=== PATIENT | male | born 1965 | race American Indian/Alaskan Native ===

== ENCOUNTER 2017-11-30 11:07 | Inpatient (IN) | payer MEDICAID, OTHER ==
[2017-11-30] MEDS ORDERED: Clindamycin 600mg/50ml D5W 600 MG/50 ML VIAL IVPB STA (11:49)
[2017-11-30] MEDS ORDERED: Ciprofloxacin 400mg/200ml D5W 400 MG/200 ML BAG IV STA (11:49)
[2017-11-30] MEDS ORDERED: Oxycodone/Acetaminophen 5/325 mg Tab PO STA (11:52)
--- NOTE | 2017-11-30 11:52 | C.PDOC ---
History Of Present Illness Patient presents to ED c/o worsening pain, redness, swelling of right hand after being but by a neighbor's cat two weeks ago (on his right thumb). He has not sought medical attention yet, no PO antibiotics taken. Patient is unsure of tetanus vaccinations status. He reports a PMHX of DM II, but does not take medication for it. Time Seen by Provider: 11/30/17 11:28 Chief Complaint (Nursing): Upper Extremity Problem/Injury History Per: Patient History/Exam Limitations: no limitations Onset/Duration Of Symptoms: Waxing/Waning (2 weeks) Current Symptoms Are (Timing): Still Present Quality: "Pain" Severity: Severe Past Medical History Reviewed: Historical Data, Nursing Documentation, Vital Signs Vital Signs: Last Vital Signs Temp 98.0 F 12/04/17 23:45 Pulse 75 12/05/17 15:56 Resp 20 12/04/17 23:45 BP 130/78 12/05/17 09:36 Pulse Ox 97 12/04/17 23:45 - Medical History PMH: Diabetes - [facility] Procedures DRAINAGE OF RIGHT HAND MUSCLE, OPEN APPROACH, DIAGNOSTIC (11/30/17) INSERTION OF INFUSION DEV INTO SUP VENA CAVA, PERC APPROACH (11/30/17) Family History: States: No Known Family Hx - Social History Hx Alcohol Use: No Hx Substance Use: No - Immunization History Hx Tetanus Toxoid Vaccination: No Hx Influenza Vaccination: No Hx Pneumococcal Vaccination: No Review Of Systems Except As Marked, All Systems Reviewed And Found Negative. Cardiovascular: Negative for: Chest Pain Respiratory: Negative for: Shortness of Breath Neurological: Positive for: Other (right hand swelling, redness, pain ) Physical Exam - Physical Exam Appears: Well, Non-toxic, In Acute Distress (in moderate pain ) Skin: Other (see extremity exam ) Eye(s): bilateral: Normal Inspection Oral Mucosa: Moist Cardiovascular: Rhythm Regular (tachycardic ) Respiratory: Normal Breath Sounds, No Rales, No Rhonchi, No Wheezing Extremity: No Normal ROM, Capillary Refill (< 2 sec all digits ), Other (right hand diffusely tender to palpation, moderate to severe swelling, diffusely erythematous, (+) large amount of purulence under skin of palm ) ED Course And Treatment - Laboratory Results Result Diagrams: 12/05/17 06:25 12/05/17 06:25 O2 Sat by Pulse Oximetry: 100 (RA) Pulse Ox Interpretation: Normal - Other Rad right hand Xray X-Ray: Interpreted by Me, Viewed By Me (no fx/dislocation, no foreign bodies, (+ ) soft tissue swelling ) Progress Note: Blood work, xray of hand ordered and reviewed. Patient given IV Clindamycin + IV Ciprofloxacin to cover for pasteurella, Strep, staph (No Unasyn available at this hospital). 1:15PM- Dr. Carrizales being covered by Dr. Garcia, who will see patient on consult. Surgery resident paged to come evaluate patient. [facility] spoken with and agrees with medical admission. - Physician Consult Information Physician Contacted: Barron Bailon Critical Care Time - Critical Care Note Total Time (in mins): 35 Documented critical care: time excludes all time spent performing seperately billable procedures. Disposition - Disposition Disposition: HOSPITALIZED Disposition Time: 12:51 Condition: STABLE - Clinical Impression Clinical Impression: Abscess of right hand, Cellulitis of right hand, Cat bite of hand
[2017-11-30] MEDS ORDERED: Tetanus/Diphtheria Toxoids 0.5 ml Syringe IM ONE (11:56)
[2017-11-30 12:07] LABS: BASO # 0.1 K/uL (0.0-0.2); EOS # 0.1 K/uL (0.0-0.7); EOS % 0.6 % (0.0-4.0); HEMOGLOBIN 12.9 g/dL (12.0-18.0); LYMPH # 1.8 K/uL (1.0-4.3); MEAN CELL VOLUME 80.8 fL (80.0-94.0); MEAN CORPUSCULAR HEMOGLOBIN 28.3 pg (27.0-31.0); MEAN CORPUSCULAR HGB CONC 35.1 g/dL (33.0-37.0); MEAN PLATELET VOLUME 9.3 fL (7.2-11.7); MONO # 1.3 K/uL (0.0-0.8); MONO % 9.2 % (0.0-10.0); NEUT # 10.7 K/uL (1.8-7.0); NEUT % 76.2 % (50.0-75.0); RBC 4.56 Mil/uL (4.40-5.90); RED CELL DISTRIBUTION WIDTH 13.2 % (11.5-14.5); WHITE BLOOD COUNT 14.1 K/uL (4.8-10.8)
[2017-11-30 12:08] LABS: VENOUS BLOOD GAS BASE EXCESS 4.5 mmol/L (0.0-2.0); VENOUS BLOOD GAS PCO2 31 mmHg (40-60); VENOUS BLOOD GAS PO2 50 mm/Hg (30-55); VENOUS BLOOD PH 7.54 (7.32-7.43)
[2017-11-30] MEDS ORDERED: Ciprofloxacin 400mg/200ml D5W 400 MG/200 ML BAG IVPB ONE (12:12)
[2017-11-30] MEDS ORDERED: Oxycodone/Acetaminophen 5/325 mg Tab ONE (12:12)
[2017-11-30] MEDS ORDERED: Clindamycin 600mg/50ml NS 600 MG/50 ML BAG IVPB ONE ×2 (12:13→13:00)
[2017-11-30] MEDS ORDERED: Tdap Vaccine 0.5 ml Vial (10-64 yrs) IM ONE (12:13)
[2017-11-30 12:20] LABS: ALB/GLOB RATIO 0.7 (1.0-2.1); ALBUMIN 3.6 g/dL (3.5-5.0); AST/SGOT 16 U/L (17-59); BLOOD UREA NITROGEN 9 mg/dL (9-20); CALCIUM 9.2 mg/dl (8.6-10.4); GFR AFRICAN-AMERICAN > 60; GFR NON-AFRICAN AMERICAN > 60
[2017-11-30 12:23] LABS: ALT/SGPT < 6 U/L (21-72)
[2017-11-30 12:36] LABS: INR 1.3
[2017-11-30 12:37] LABS: PROTHROMBIN TIME 14.7 SECONDS (9.7-12.2)
[2017-11-30] MEDS ORDERED: Pantoprazole 40 mg EC Tab PO SCH (13:30)
[2017-11-30] MEDS ORDERED: Dextrose 50% SYRINGE Inj (50 ml) IV PRN (13:37)
[2017-11-30] MEDS ORDERED: Glucagon Recombinant 1 mg Inj IM PRN (13:37)
--- NOTE | 2017-11-30 14:27 | RAD ---
PROCEDURE: CHEST RADIOGRAPH, 1 VIEW HISTORY: ADMISSION COMPARISON: None available. FINDINGS: LUNGS: Clear. PLEURA: No pneumothorax or pleural fluid seen. CARDIOVASCULAR: Normal. OSSEOUS STRUCTURES: No significant abnormalities. VISUALIZED UPPER ABDOMEN: Normal. OTHER FINDINGS: None. IMPRESSION: No active disease.
--- NOTE | 2017-11-30 14:36 | RAD ---
PROCEDURE: Right hand dated 11/30/2017. HISTORY: Right hand infection. COMPARISON: Correlation made with concurrent MRI of the right hand FINDINGS: BONES: No evidence of acute displaced fracture nor dislocation. No definitive cortical destructive changes. . JOINTS: Normal. No osteoarthritic changes. SOFT TISSUES: That appears to be mild diffuse soft tissue swelling most conspicuous the region of the dorsum. Clinic correlation recommended OTHER FINDINGS: None. IMPRESSION: No evidence of acute displaced fracture nor dislocation. No obvious cortical destructive changes. Diffuse circumferential soft tissue swelling most at conspicuous involving the dorsal soft tissues
--- NOTE | 2017-11-30 15:54 | MRI ---
EXAM: MR Right Upper Extremity Without and With Intravenous Contrast, Hand EXAM DATE/TIME: Exam ordered 11/30/2017 1:16 PM CLINICAL HISTORY: 52 years old, male; Pain and signs and symptoms; Swelling; Hand; Right; Finger(s); Additional info: Possible osteomyelitis. S/P cat bite to thumb 2 wk TECHNIQUE: Multiplanar magnetic resonance images of the right hand without and with intravenous contrast. CONTRAST: 15 mL of omniscan administered intravenously. COMPARISON: No relevant prior studies available. FINDINGS: TENDONS: Flexor: Unremarkable. Extensor: Unremarkable. Muscles: Edema is noted within the thenar muscle and the flexor pollicis longus Cartilage: Unremarkable. Bones/joints: On the STIR sequences there is evidence of marrow edema within the proximal phalanx of the first digit. Soft tissues: There is extensive cellulitis/edema of the right hand predominantly involving the soft tissues and muscles surrounding the first, second and third digits. On the contrast portion examination, there is enhancement noted of the subcutaneous fat surrounding the first , second and third digits primarily. Faint enhancement is noted of the thenar muscle as well. There is enhancement noted of the marrow of the proximal phalanx and distal phalanx of the first digit IMPRESSION: 1. Extensive cellulitis and myositis of the right hand. Marked soft tissue swelling raises the possibility of early compartment syndrome. 2. Enhancement of the proximal and distal phalanges of the first digit could reflect early osteomyelitis
--- NOTE | 2017-11-30 16:21 | CP.PCM.CON ---
History of Present Illness - History of Present Illness History of Present Illness: Hand surgery consult for Dr. Garcia Consulted for: right hand cellulitis and abscess Patient is a 52M who was bit by a cat on his right 2 weeks ago. Patient states that it appeared to be healing but then the swelling and pain worsened and he began to have purulent drainage from the thumb 4 days ago. Patient did not attempt to treat it at home and came in today. Patient denies any fevers or chills but reports paresthesias of this thumb, fingers 2-3, and the dorsum of the hand. Patient was given a tetanus shot in the ER and states that the cat has not displayed any signs of rabies PMH: DM2 PSH: none All: NKDA Review of Systems - Review of Systems All systems: reviewed and no additional remarkable complaints except (as per HPI ) - Constitutional Constitutional: absent: Chills, Fever - Respiratory Respiratory: absent: Dyspnea - Gastrointestinal Gastrointestinal: absent: Abdominal Pain - Neurological Additional comments: paresthesias of the thumb, index, and middle finger and dorsum of hand Past Patient History - Infectious Disease Hx of Infectious Diseases: None - Past Medical History & Family History Past Medical History?: Yes - Past Social History Smoking Status: Never Smoked - ENDOCRINE/METABOLIC Hx Diabetes Mellitus Type 2: No - MUSCULOSKELETAL/RHEUMATOLOGICAL Hx Falls: No - PSYCHIATRIC Hx Substance Use: No - SURGICAL HISTORY Hx Surgeries: No - ANESTHESIA Hx Anesthesia: No Meds Allergies/Adverse Reactions: Allergies Allergy/AdvReac Type Severity Reaction Status Date / Time No Known Allergies Allergy Verified 11/30/17 11:14 - Medications Medications: Current Medications Dextrose (Dextrose 50% Inj) 0 ml IV STAT PRN; Protocol PRN Reason: Hypoglycemia Protocol Dextrose (Glutose 15) 15 gm PO ONCE PRN; Protocol PRN Reason: Hypoglycemia Protocol Glucagon (Glucagen Diagnostic Kit) 1 mg IM STAT PRN; Protocol PRN Reason: Hypoglycemia Protocol Clindamycin Phosphate (Cleocin In Normal Saline) 600 mg in 50 mls @ 100 mls/hr IVPB Q8H [facility] PRN Reason: Protocol Ciprofloxacin (Cipro 400mg/200ml Dsw) 400 mg in 200 mls @ 133 mls/hr IVPB Q12H [facility] PRN Reason: Protocol Dextrose (Dextrose 5% In Water 1000 Ml) 1,000 mls @ 0 mls/hr IV .Q0M PRN; Protocol; Per Protocol PRN Reason: Hypoglycemia Protocol Insulin Human Regular (Novolin R) 0 unit SC ACHS [facility] PRN Reason: Protocol Ketorolac Tromethamine (Toradol) 30 mg IVP Q6H PRN PRN Reason: Pain, severe (8-10) Ketorolac Tromethamine (Toradol) 15 mg IVP Q6H PRN PRN Reason: Pain, moderate (4-7) Pantoprazole Sodium (Protonix Ec Tab) 40 mg PO DAILY [facility] Last Admin: 11/30/17 15:19 Dose: 40 mg Saccharomyces Boulardii (Florastor) 250 mg PO BID [facility] Physical Exam - Constitutional Appears: Well, Non-toxic, No Acute Distress - Head Exam Head Exam: NORMOCEPHALIC - Eye Exam Eye Exam: Normal appearance. absent: Conjunctival injection, Scleral icterus - ENT Exam ENT Exam: Mucous Membranes Moist, Normal Oropharynx - Respiratory Exam Respiratory Exam: NORMAL BREATHING PATTERN. absent: Accessory Muscle Use, Respiratory Distress - Cardiovascular Exam Cardiovascular Exam: RRR - GI/Abdominal Exam GI & Abdominal Exam: absent: Distended - Extremities Exam Additional comments: right hand with diffuse, severe swelling, area of fluctuance from the thumb to throughout the palm with thick induration over the thumb, thenar eminence, and dorsal hand. Able to resist agains flexion and extension of the fingers and thumb but ROM limited by swelling, no expressible fluid. Hand warm, erythematous - Neurological Exam Neurological exam: Alert, Oriented x3 - Psychiatric Exam Psychiatric exam: Normal Affect, Normal Mood - Skin Skin Exam: Dry, Intact, Normal Color, Warm Results - Vital Signs Recent Vital Signs: Last Vital Signs Temp 99 F 11/30/17 13:33 Pulse 95 H 11/30/17 15:34 Resp 18 11/30/17 13:33 BP 139/79 11/30/17 13:33 Pulse Ox 97 11/30/17 13:33 - Labs Result Diagrams: 11/30/17 12:02 11/30/17 12:02 Labs: Laboratory Results - last 24 hr 11/30/17 11/30/17 11/30/17 12:02 12:02 12:02 WBC 14.1 H RBC 4.56 Hgb 12.9 Hct 36.8 MCV 80.8 MCH 28.3 MCHC 35.1 RDW 13.2 Plt Count 412 H MPV 9.3 Neut % (Auto) 76.2 H Lymph % (Auto) 13.0 L Mcpherson % (Auto) 9.2 Eos % (Auto) 0.6 Baso % (Auto) 1.0 Neut # (Auto) 10.7 H Lymph # (Auto) 1.8 Mcpherson # (Auto) 1.3 H Eos # (Auto) 0.1 Baso # (Auto) 0.1 ESR 112 H PT 14.7 H INR 1.3 APTT 38 H pO2 VBG pH VBG pCO2 VBG HCO3 VBG Total CO2 VBG O2 Sat (Calc) VBG Base Excess VBG Potassium Glucose Lactate Sodium 134 Potassium 3.8 Chloride 96 L Carbon Dioxide 25 Anion Gap 17 BUN 9 Creatinine 0.8 Est GFR ( Amer) > 60 Est GFR (Non-Af Amer) > 60 Random Glucose 211 H Calcium 9.2 Total Bilirubin 1.0 AST 16 L ALT < 6 L Alkaline Phosphatase 89 Total Protein 8.6 H Albumin 3.6 Globulin 5.0 H Albumin/Globulin Ratio 0.7 L Venous Blood Potassium Blood Type Antibody Screen 11/30/17 11/30/17 12:04 12:26 WBC RBC Hgb Hct MCV MCH MCHC RDW Plt Count MPV Neut % (Auto) Lymph % (Auto) Mcpherson % (Auto) Eos % (Auto) Baso % (Auto) Neut # (Auto) Lymph # (Auto) Mcpherson # (Auto) Eos # (Auto) Baso # (Auto) ESR PT INR APTT pO2 50 VBG pH 7.54 H VBG pCO2 31 L VBG HCO3 28.2 VBG Total CO2 27.5 VBG O2 Sat (Calc) 90.6 H VBG Base Excess 4.5 H VBG Potassium 3.6 Glucose 213 H Lactate 1.3 Sodium 133.0 Potassium Chloride 100.0 Carbon Dioxide Anion Gap BUN Creatinine Est GFR ( Amer) Est GFR (Non-Af Amer) Random Glucose Calcium Total Bilirubin AST ALT Alkaline Phosphatase Total Protein Albumin Globulin Albumin/Globulin Ratio Venous Blood Potassium 3.6 Blood Type O POSITIVE Antibody Screen Negative Assessment & Plan - Assessment and Plan (Free Text) Assessment: 52M with abscess and cellulitis of the right hand MRI: Extensive cellulitis and myositis of the right hand. Marked soft tissue swelling raises the possibility of early compartment syndrome. Enhancement of the proximal and distal phalanges of the first digit could reflect early osteomyelitis Plan: Take to OR for incision and drainage and debridement of right hand tonight Antibiotics per ID PRN pain medication Continue management per primary Regular neurovascular exam Discussed with Dr. Jose Meeks, PGY2
--- NOTE | 2017-11-30 16:44 | CP.PCM.CON ---
History of Present Illness - History of Present Illness History of Present Illness: Patient presents to ED c/o worsening pain, redness, swelling of right hand after being but by a neighbor's cat two weeks ago (on his right thumb). He has not sought medical attention yet, no PO antibiotics take. Patient is unsure of tetanus vaccinations status. He reports a PMHX of DM II, but does not take medication for it. Referred for ID eval for this severe SSTI to right hand which started 2 weeks ago but recently became worse C/O severe pain and decreased rom right hand as well as chills - Medical History PMH: Diabetes Review of Systems - Review of Systems All systems: reviewed and no additional remarkable complaints except - Constitutional Constitutional: As Per HPI, Fever - EENT Eyes: absent: As Per HPI, Blind Spots, Blurred Vision, Change in Vision, Decreased Night Vision, Diplopia, Discharge, Dry Eye, Exophthalmos, Floaters, Irritation, Itchy Eyes, Loss of Peripheral Vision, Pain, Photophobia, Requires Corrective Lenses, Sees Flashes, Spots in Vision, Tunnel Vision, Other Visual Disturbances, Loss of Vision, Other Ears: absent: As Per HPI, Decreased Hearing, Ear Discharge, Ear Pain, Tinnitus, Abnormal Hearing, Disequilibrium, Dizziness, Other Nose/Mouth/Throat: absent: As Per HPI, Epistaxis, Nasal Congestion, Nasal Discharge, Nasal Obstruction, Nasal Trauma, Nose Pain, Post Nasal Drip, Sinus Pain, Sinus Pressure, Bleeding Gums, Change in Voice, Dental Pain, Dry Mouth, Dysphagia, Halitosis, Hoarsness, Lip Swelling, Mouth Lesions, Mouth Pain, Odynophagia, Sore Throat, Throat Swelling, Tongue Swelling, Facial Pain, Neck Pain, Neck Mass, Other - Cardiovascular Cardiovascular: absent: As Per HPI, Acrocyanosis, Chest Pain, Chest Pain at Rest , Chest Pain with Activity, Claudication, Diaphoresis, Dyspnea, Dyspnea on Exertion, Edema, Irregular Heart Rhythm, Pain Radiating to Arm/Neck/Jaw, Leg Edema, Leg Ulcers, Lightheadedness, Orthopnea, Palpitations, Paroxysmal Nocturnal Dyspnea, Pedal Edema, Radiating Pain, Rapid Heart Rate, Slow Heart Rate, Syncope, Other - Respiratory Respiratory: absent: As Per HPI, Cough, Dyspnea, Hemoptysis, Dyspnea on Exertion , Wheezing, Snoring, Stridor, Pain on Inspiration, Chest Congestion, Excessive Mucous Production, Change in Mucous Color, Pain with Coughing, Other - Gastrointestinal Gastrointestinal: absent: As Per HPI, Abdominal Pain, Belching, Bloating, Change in Bowel Habits, Change in Stool Character, Coffee Ground Emesis, Constipation, Cramping, Diarrhea, Dyspepsia, Dysphagia, Early Satiety, Excessive Flatus, Fecal Incontinence, Heartburn, Hematemesis, Hematochezia, Loose Stools, Melena, Nausea, Odynophagia, Temesmus, Vomiting, Other - Genitourinary Genitourinary: absent: As Per HPI, Change in Urinary Stream, Difficulty Urinating, Dysuria, Flank Pain, Hematuria, Pyuria, Nocturia, Urinary Incontinence, Urinary Frequency, Urinary Hesitance, Urinary Urgency, Voiding Freq/Small Amts, Freq UTI, Hx Renal/Bladder Calculi, Hx /Renal Surgery, Bladder Distension, Other - Musculoskeletal Musculoskeletal: As Per HPI - Integumentary Integumentary: Skin Pain, Swelling, Wounds - Neurological Neurological: Tremor - Psychiatric Psychiatric: absent: As Per HPI, Abnormal Sleep Pattern, Anhedonia, Anxiety, Auditory Hallucinations, Behavioral Changes, Change in Appetite, Change in Libido, Confusion, Depression, Difficulty Concentrating, Hallucinations, Homicidal Ideation, Hopelessness, Irritability, Memory Loss, Mood Swings, Panic Attacks, Paranoia, Suicidal Ideation, Visual Hallucinations, Tactile Hallucinations, Other - Endocrine Endocrine: absent: As Per HPI, Change in Body Appearance, Change in Libido, Cold Intolorance, Deepening of Voice, Excessive Sweating, Fatigue, Flushing, Heat Intolorance, Increase in Ring/Shoe/Hat Size, Palpitations, Polydipsia, Polyphagia, Polyuria, Other Past Patient History - Infectious Disease Hx of Infectious Diseases: None - Past Medical History & Family History Past Medical History?: Yes - Past Social History Smoking Status: Never Smoked - ENDOCRINE/METABOLIC Hx Diabetes Mellitus Type 2: No - MUSCULOSKELETAL/RHEUMATOLOGICAL Hx Falls: No - PSYCHIATRIC Hx Substance Use: No - SURGICAL HISTORY Hx Surgeries: No - ANESTHESIA Hx Anesthesia: No Meds Allergies/Adverse Reactions: Allergies Allergy/AdvReac Type Severity Reaction Status Date / Time No Known Allergies Allergy Verified 11/30/17 11:14 - Medications Medications: Current Medications Dextrose (Dextrose 50% Inj) 0 ml IV STAT PRN; Protocol PRN Reason: Hypoglycemia Protocol Dextrose (Glutose 15) 15 gm PO ONCE PRN; Protocol PRN Reason: Hypoglycemia Protocol Glucagon (Glucagen Diagnostic Kit) 1 mg IM STAT PRN; Protocol PRN Reason: Hypoglycemia Protocol Clindamycin Phosphate (Cleocin In Normal Saline) 600 mg in 50 mls @ 100 mls/hr IVPB Q8H [facility] PRN Reason: Protocol Ciprofloxacin (Cipro 400mg/200ml Dsw) 400 mg in 200 mls @ 133 mls/hr IVPB Q12H [facility] PRN Reason: Protocol Dextrose (Dextrose 5% In Water 1000 Ml) 1,000 mls @ 0 mls/hr IV .Q0M PRN; Protocol; Per Protocol PRN Reason: Hypoglycemia Protocol Insulin Human Regular (Novolin R) 0 unit SC ACHS [facility] PRN Reason: Protocol Ketorolac Tromethamine (Toradol) 30 mg IVP Q6H PRN PRN Reason: Pain, severe (8-10) Ketorolac Tromethamine (Toradol) 15 mg IVP Q6H PRN PRN Reason: Pain, moderate (4-7) Pantoprazole Sodium (Protonix Ec Tab) 40 mg PO DAILY [facility] Last Admin: 11/30/17 15:19 Dose: 40 mg Saccharomyces Boulardii (Florastor) 250 mg PO BID [facility] Physical Exam - Constitutional Appears: Toxic, No Acute Distress - Head Exam Head Exam: ATRAUMATIC, NORMAL INSPECTION, NORMOCEPHALIC - Eye Exam Eye Exam: EOMI, PERRL. absent: Scleral icterus - ENT Exam ENT Exam: Mucous Membranes Dry, Normal External Ear Exam, Normal Oropharynx - Neck Exam Neck exam: Negative for: Lymphadenopathy, Thyromegaly - Respiratory Exam Respiratory Exam: Decreased Breath Sounds, Clear to Auscultation Bilateral - Cardiovascular Exam Cardiovascular Exam: Tachycardia, REGULAR RHYTHM, +S1, +S2 - GI/Abdominal Exam GI & Abdominal Exam: Diminished Bowel Sounds, Distended, Soft. absent: Pulsatile Mass, Rebound, Rigid, Tenderness - Rectal Exam Rectal Exam: Deferred - Exam Exam: NORMAL INSPECTION - Extremities Exam Extremities exam: Positive for: pedal pulses present. Negative for: calf tenderness, pedal edema, tenderness - Back Exam Back exam: absent: CVA tenderness (L), CVA tenderness (R), paraspinal tenderness - Neurological Exam Neurological exam: Alert, CN II-XII Intact, Oriented x3, Reflexes Normal - Psychiatric Exam Psychiatric exam: Depressed - Skin Skin Exam: Dry Results - Vital Signs Recent Vital Signs: Last Vital Signs Temp 99 F 11/30/17 13:33 Pulse 95 H 11/30/17 15:34 Resp 18 11/30/17 13:33 BP 139/79 11/30/17 13:33 Pulse Ox 97 11/30/17 13:33 - Labs Result Diagrams: 11/30/17 12:02 11/30/17 12:02 Labs: Laboratory Results - last 24 hr 11/30/17 11/30/17 11/30/17 12:02 12:02 12:02 WBC 14.1 H RBC 4.56 Hgb 12.9 Hct 36.8 MCV 80.8 MCH 28.3 MCHC 35.1 RDW 13.2 Plt Count 412 H MPV 9.3 Neut % (Auto) 76.2 H Lymph % (Auto) 13.0 L [place] % (Auto) 9.2 Eos % (Auto) 0.6 Baso % (Auto) 1.0 Neut # (Auto) 10.7 H Lymph # (Auto) 1.8 [place] # (Auto) 1.3 H Eos # (Auto) 0.1 Baso # (Auto) 0.1 ESR 112 H PT 14.7 H INR 1.3 APTT 38 H pO2 VBG pH VBG pCO2 VBG HCO3 VBG Total CO2 VBG O2 Sat (Calc) VBG Base Excess VBG Potassium Glucose Lactate Sodium 134 Potassium 3.8 Chloride 96 L Carbon Dioxide 25 Anion Gap 17 BUN 9 Creatinine 0.8 Est GFR ( Amer) > 60 Est GFR (Non-Af Amer) > 60 POC Glucose (mg/dL) Random Glucose 211 H Calcium 9.2 Total Bilirubin 1.0 AST 16 L ALT < 6 L Alkaline Phosphatase 89 Total Protein 8.6 H Albumin 3.6 Globulin 5.0 H Albumin/Globulin Ratio 0.7 L Venous Blood Potassium Blood Type Antibody Screen 11/30/17 11/30/17 11/30/17 12:04 12:26 16:15 WBC RBC Hgb Hct MCV MCH MCHC RDW Plt Count MPV Neut % (Auto) Lymph % (Auto) [place] % (Auto) Eos % (Auto) Baso % (Auto) Neut # (Auto) Lymph # (Auto) [place] # (Auto) Eos # (Auto) Baso # (Auto) ESR PT INR APTT pO2 50 VBG pH 7.54 H VBG pCO2 31 L VBG HCO3 28.2 VBG Total CO2 27.5 VBG O2 Sat (Calc) 90.6 H VBG Base Excess 4.5 H VBG Potassium 3.6 Glucose 213 H Lactate 1.3 Sodium 133.0 Potassium Chloride 100.0 Carbon Dioxide Anion Gap BUN Creatinine Est GFR ( Amer) Est GFR (Non-Af Amer) POC Glucose (mg/dL) 174 H Random Glucose Calcium Total Bilirubin AST ALT Alkaline Phosphatase Total Protein Albumin Globulin Albumin/Globulin Ratio Venous Blood Potassium 3.6 Blood Type O POSITIVE Antibody Screen Negative Assessment & Plan (1) Cat bite involving extremity Status: Acute (2) Sepsis affecting skin Status: Acute (3) Cellulitis and abscess of hand Status: Acute (4) Necrotizing fasciitis due to microorganism Status: Acute (5) Osteomyelitis Status: Acute - Assessment and Plan (Free Text) Assessment: needs broad spectrum empiric coverage with IV antibiotics need to cover pasteurella multocida in cat bite would also cover MRSA until ruled out consider OR / Debridement JUNE
[2017-11-30] MEDS: (Novolin R) Insulin Human Regular 100 units/ml vial SC SCH ×2 (17:10→22:07)
[2017-11-30] MEDS: Saccharomyces Boulardi 250 mg Cap PO SCH (17:10)
[2017-11-30] MEDS: Piperacill/Tazo 3.375gm in Dex 3.375 GM/50 ML BAG IVPB SCH ×2 (17:32→23:02)
--- NOTE | 2017-11-30 18:08 | CP.PCM.HP ---
<Mario Ward - Last Filed: 11/30/17 17:58> History of Present Illness - History of Present Illness History of Present Illness: HPI: Jaquan is a 52M with a PMH of DM comes to ED after he was bit by a cat 2 weeks ago. He stated he did had pain at that time but no swelling. Slowly progressive over 2 weeks time the swelling got to the point where he started to have trouble using his hand. It came to the point when he was unable to move his fingers. During the course of the two weeks he noticed purulent drainage from the thumb. He was taking Advil at home but that was not relieving the pain. He denies any fever or chills. No nausea or vomiting. PMH: DM2, takes no medications PSH: none FH: Unremarkable SH: Denies smoking, dirnking, drugs All: NKDA Present on Admission - Present on Admission Any Indicators Present on Admission: Yes History of Uncontrolled Diabetes: Yes Review of Systems - Review of Systems Review of Systems: per HPI Past Patient History - Infectious Disease Hx of Infectious Diseases: None - Past Medical History & Family History Past Medical History?: Yes - Past Social History Smoking Status: Never Smoked - ENDOCRINE/METABOLIC Hx Diabetes Mellitus Type 2: No - MUSCULOSKELETAL/RHEUMATOLOGICAL Hx Falls: No - PSYCHIATRIC Hx Substance Use: No - SURGICAL HISTORY Hx Surgeries: No - ANESTHESIA Hx Anesthesia: No Meds Allergies/Adverse Reactions: Allergies Allergy/AdvReac Type Severity Reaction Status Date / Time No Known Allergies Allergy Verified 11/30/17 11:14 Physical Exam - Constitutional Appears: Well - Head Exam Head Exam: ATRAUMATIC, NORMAL INSPECTION, NORMOCEPHALIC - Eye Exam Eye Exam: EOMI, Normal appearance, PERRL Pupil Exam: NORMAL ACCOMODATION, PERRL - ENT Exam ENT Exam: Mucous Membranes Moist, Normal Exam - Neck Exam Neck exam: Positive for: Normal Inspection - Respiratory Exam Respiratory Exam: Clear to Auscultation Bilateral, NORMAL BREATHING PATTERN - Cardiovascular Exam Cardiovascular Exam: REGULAR RHYTHM - GI/Abdominal Exam GI & Abdominal Exam: Normal Bowel Sounds, Soft. absent: Tenderness - Rectal Exam Rectal Exam: NORMAL INSPECTION - Exam Exam: Circumcision, NORMAL INSPECTION External exam: NORMAL EXTERNAL EXAM Speculum exam: NORMAL SPECULUM EXAM Bimanual exam: NORMAL BIMANUAL EXAM - Extremities Exam Additional comments: R. hand circumferential swollen. Able to wiggle finger and has sensation but is unable to close hand. Hand is warm and pulses are 2+ - Back Exam Back exam: NORMAL INSPECTION - Neurological Exam Neurological exam: Alert, CN II-XII Intact, Normal Gait, Oriented x3, Reflexes Normal - Psychiatric Exam Psychiatric exam: Normal Affect, Normal Mood - Skin Skin Exam: Dry, Intact, Normal Color, Warm Results - Vital Signs Recent Vital Signs: Last Vital Signs Temp 99 F 11/30/17 13:33 Pulse 95 H 11/30/17 15:34 Resp 18 11/30/17 13:33 BP 139/79 11/30/17 13:33 Pulse Ox 97 11/30/17 13:33 - Labs Result Diagrams: 11/30/17 12:02 11/30/17 12:02 Labs: Laboratory Results - last 24 hr 11/30/17 11/30/17 11/30/17 12:02 12:02 12:02 WBC 14.1 H RBC 4.56 Hgb 12.9 Hct 36.8 MCV 80.8 MCH 28.3 MCHC 35.1 RDW 13.2 Plt Count 412 H MPV 9.3 Neut % (Auto) 76.2 H Lymph % (Auto) 13.0 L [place] % (Auto) 9.2 Eos % (Auto) 0.6 Baso % (Auto) 1.0 Neut # (Auto) 10.7 H Lymph # (Auto) 1.8 [place] # (Auto) 1.3 H Eos # (Auto) 0.1 Baso # (Auto) 0.1 ESR 112 H PT 14.7 H INR 1.3 APTT 38 H pO2 VBG pH VBG pCO2 VBG HCO3 VBG Total CO2 VBG O2 Sat (Calc) VBG Base Excess VBG Potassium Glucose Lactate Sodium 134 Potassium 3.8 Chloride 96 L Carbon Dioxide 25 Anion Gap 17 BUN 9 Creatinine 0.8 Est GFR ( Amer) > 60 Est GFR (Non-Af Amer) > 60 POC Glucose (mg/dL) Random Glucose 211 H Calcium 9.2 Total Bilirubin 1.0 AST 16 L ALT < 6 L Alkaline Phosphatase 89 Total Protein 8.6 H Albumin 3.6 Globulin 5.0 H Albumin/Globulin Ratio 0.7 L Venous Blood Potassium Blood Type Antibody Screen 11/30/17 11/30/17 11/30/17 12:04 12:26 16:15 WBC RBC Hgb Hct MCV MCH MCHC RDW Plt Count MPV Neut % (Auto) Lymph % (Auto) [place] % (Auto) Eos % (Auto) Baso % (Auto) Neut # (Auto) Lymph # (Auto) [place] # (Auto) Eos # (Auto) Baso # (Auto) ESR PT INR APTT pO2 50 VBG pH 7.54 H VBG pCO2 31 L VBG HCO3 28.2 VBG Total CO2 27.5 VBG O2 Sat (Calc) 90.6 H VBG Base Excess 4.5 H VBG Potassium 3.6 Glucose 213 H Lactate 1.3 Sodium 133.0 Potassium Chloride 100.0 Carbon Dioxide Anion Gap BUN Creatinine Est GFR ( Amer) Est GFR (Non-Af Amer) POC Glucose (mg/dL) 174 H Random Glucose Calcium Total Bilirubin AST ALT Alkaline Phosphatase Total Protein Albumin Globulin Albumin/Globulin Ratio Venous Blood Potassium 3.6 Blood Type O POSITIVE Antibody Screen Negative Assessment & Plan (1) Cat bite involving extremity Assessment and Plan: Possible compartment syndrome Hand Surgeon ([place]) plan to operate this evening ID ([place]) Cipro 400 IV Q12 Clinda 600 IV Q8 zosyn 3.375 IV Q6 Toradol 15/30 Q6 PRN for pain F/U blood cultures Hand Xray - no fracture or dislocation MRI: Extensive cellulitis/myositis of R. hand. Marked soft tissue swelling raises concern for early compartment syndrome. First digit osteo possible. Status: Acute Priority: High (2) Diabetes mellitus Assessment and Plan: A1C ISS High Status: Chronic Priority: High (3) Prophylactic measure Assessment and Plan: GI PPX not indicated scd Hold vte for surgery tonight Status: Acute Priority: Medium <Barron Bailon - Last Filed: 11/30/17 19:14> Results - Vital Signs Recent Vital Signs: Last Vital Signs Temp 98.5 F 11/30/17 15:45 Pulse 102 H 11/30/17 18:30 Resp 18 11/30/17 18:30 BP 129/78 11/30/17 18:30 Pulse Ox 97 11/30/17 18:30 - Labs Result Diagrams: 11/30/17 12:02 11/30/17 12:02 Labs: Laboratory Results - last 24 hr 04/20/18 04/20/18 04/20/18 12:02 12:02 12:02 WBC 14.1 H RBC 4.56 Hgb 12.9 Hct 36.8 MCV 80.8 MCH 28.3 MCHC 35.1 RDW 13.2 Plt Count 412 H MPV 9.3 Neut % (Auto) 76.2 H Lymph % (Auto) 13.0 L [place] % (Auto) 9.2 Eos % (Auto) 0.6 Baso % (Auto) 1.0 Neut # (Auto) 10.7 H Lymph # (Auto) 1.8 [place] # (Auto) 1.3 H Eos # (Auto) 0.1 Baso # (Auto) 0.1 ESR 112 H PT 14.7 H INR 1.3 APTT 38 H pO2 VBG pH VBG pCO2 VBG HCO3 VBG Total CO2 VBG O2 Sat (Calc) VBG Base Excess VBG Potassium Glucose Lactate Sodium 134 Potassium 3.8 Chloride 96 L Carbon Dioxide 25 Anion Gap 17 BUN 9 Creatinine 0.8 Est GFR ( Amer) > 60 Est GFR (Non-Af Amer) > 60 POC Glucose (mg/dL) Random Glucose 211 H Calcium 9.2 Total Bilirubin 1.0 AST 16 L ALT < 6 L Alkaline Phosphatase 89 Total Protein 8.6 H Albumin 3.6 Globulin 5.0 H Albumin/Globulin Ratio 0.7 L Venous Blood Potassium Blood Type Antibody Screen 11/30/17 11/30/17 11/30/17 12:04 12:26 16:15 WBC RBC Hgb Hct MCV MCH MCHC RDW Plt Count MPV Neut % (Auto) Lymph % (Auto) [place] % (Auto) Eos % (Auto) Baso % (Auto) Neut # (Auto) Lymph # (Auto) [place] # (Auto) Eos # (Auto) Baso # (Auto) ESR PT INR APTT pO2 50 VBG pH 7.54 H VBG pCO2 31 L VBG HCO3 28.2 VBG Total CO2 27.5 VBG O2 Sat (Calc) 90.6 H VBG Base Excess 4.5 H VBG Potassium 3.6 Glucose 213 H Lactate 1.3 Sodium 133.0 Potassium Chloride 100.0 Carbon Dioxide Anion Gap BUN Creatinine Est GFR ( Amer) Est GFR (Non-Af Amer) POC Glucose (mg/dL) 174 H Random Glucose Calcium Total Bilirubin AST ALT Alkaline Phosphatase Total Protein Albumin Globulin Albumin/Globulin Ratio Venous Blood Potassium 3.6 Blood Type O POSITIVE Antibody Screen Negative Attending/Attestation - Attestation I have personally seen and examined this patient.: Yes I have fully participated in the care of the patient.: Yes I have reviewed all pertinent clinical information: Yes Notes (Text): 11/30/17 19:10 Patient was seen and examined in the Emergency Room at 12:15 PM. Discussed at length with ER physician Dr. Perez who explained that there seemed to be some confusion as to who was the Surgeon international sourcing manager for Hand Surgery. I spoke Li Sapp in Medical Staff office and explained the situation and she will work on trying to find the correct physician. Dr. Perez was able to speak with Dr. Hutchison who explained that correct Surgeon was Dr. Duncan. Linen Room Worker Dr. Jensen explained to surgical sales representative that there were findings on MRI Hand to suggest compartment syndrome and it was at that time that Dr. Duncan scheduled patient for surgery later this evening. Discussed appropriate antibiotics with Dr. Marquez. Explained plan for surgery with Patient. Barron Bailon D.O.
[2017-11-30] MEDS ORDERED: Propofol 10 mg/ml Inj (20 ML) ONE (19:34)
[2017-11-30] MEDS ORDERED: Midazolam 2 MG/2 ML VIAL ONE (19:34)
[2017-11-30] MEDS ORDERED: Bupivacaine HCl 0.25% PF (30 ml) Inj ONE (19:35)
[2017-11-30] MEDS ORDERED: Lidocaine/Epinephrine 1% 1:100000 10 ML IJ ONE (19:35)
[2017-11-30] MEDS: Clindamycin 600mg/50ml NS 600 MG/50 ML BAG IVPB SCH (20:00)
[2017-11-30] MEDS ORDERED: Morphine 4 MG/ML VIAL ONE (20:10)
--- NOTE | 2017-11-30 20:26 | PCM.SURG1 ---
Surgeon's Initial Post Op Note - Surgeon's Notes Surgeon: Dr. Garcia Mold Laminator: Marina Valdivia, PGY-1 Pre-Operative Diagnosis: Right hand abscess Operative Findings: See op report Post-Operative Diagnosis: Right hand abscess Operation Performed: Incision and drainage of Right hand abscess Specimen/Specimens Removed: Wound cultures x 2 Estimated Blood Loss: EBL {In ML}: 20 Blood Products Given: N/A Drains Used: No Drains Post-Op Condition: Good Date of Surgery/Procedure: 11/30/17 Time of Surgery/Procedure: 20:26
[2017-11-30] MEDS ORDERED: Oxycodone/Acetaminophen 5/325 mg Tab PO PRN (20:27)
[2017-12-01] MEDS: Ciprofloxacin 400mg/200ml D5W 400 MG/200 ML BAG IVPB SCH ×2 (01:37→12:27)
[2017-12-01] MEDS: Clindamycin 600mg/50ml NS 600 MG/50 ML BAG IVPB SCH ×3 (04:32→21:20)
[2017-12-01] MEDS: Piperacill/Tazo 3.375gm in Dex 3.375 GM/50 ML BAG IVPB SCH ×4 (06:02→23:24)
--- NOTE | 2017-12-01 06:03 | CP.PCM.PN ---
Subjective - Date & Time of Evaluation Date of Evaluation: 12/01/17 Time of Evaluation: 05:30 - Subjective Subjective: Hand surgery progress note for Dr. Marko Valdivia, PGY-1 Pt S & E at bedside Pt reports marked improvement in Right hand pain. Denies N & V, F & C, other complaints. Objective - Vital Signs/Intake and Output Vital Signs (last 24 hours): Temp Pulse Resp BP Pulse Ox 102.3 F H 102 H 18 129/78 97 11/30/17 23:51 11/30/17 18:30 11/30/17 18:30 11/30/17 18:30 11/30/17 18:30 Intake and Output: 11/30/17 12/01/17 18:59 06:59 Intake Total 700 Balance 700 - Medications Medications: Current Medications Dextrose (Dextrose 50% Inj) 0 ml IV STAT PRN; Protocol PRN Reason: Hypoglycemia Protocol Dextrose (Glutose 15) 15 gm PO ONCE PRN; Protocol PRN Reason: Hypoglycemia Protocol Docusate Sodium (Colace) 100 mg PO DAILY PRN PRN Reason: Constipation Glucagon (Glucagen Diagnostic Kit) 1 mg IM STAT PRN; Protocol PRN Reason: Hypoglycemia Protocol Clindamycin Phosphate (Cleocin In Normal Saline) 600 mg in 50 mls @ 100 mls/hr IVPB Q8H [facility] PRN Reason: Protocol Last Admin: 12/01/17 04:32 Dose: 100 mls/hr Ciprofloxacin (Cipro 400mg/200ml Dsw) 400 mg in 200 mls @ 133 mls/hr IVPB Q12H [facility] PRN Reason: Protocol Last Admin: 12/01/17 01:37 Dose: 133 mls/hr Dextrose (Dextrose 5% In Water 1000 Ml) 1,000 mls @ 0 mls/hr IV .Q0M PRN; Protocol; Per Protocol PRN Reason: Hypoglycemia Protocol Piperacillin Sod/Tazobactam Sod (Zosyn 3.375 Gm Iv Premix) 3.375 gm in 50 mls @ 100 mls/hr IVPB Q6H [facility] PRN Reason: Protocol Last Admin: 11/30/17 23:02 Dose: 100 mls/hr Insulin Human Regular (Novolin R) 0 unit SC ACHS [facility] PRN Reason: Protocol Last Admin: 11/30/17 22:07 Dose: Not Given Ketorolac Tromethamine (Toradol) 30 mg IVP Q6H PRN PRN Reason: Pain, severe (8-10) Ketorolac Tromethamine (Toradol) 15 mg IVP Q6H PRN PRN Reason: Pain, moderate (4-7) Oxycodone/Acetaminophen (Percocet 5/325 Mg Tab) 1 tab PO Q4H PRN PRN Reason: Pain, moderate (4-7) Stop: 12/03/17 20:28 Last Admin: 11/30/17 23:51 Dose: 1 tab Saccharomyces Boulardii (Florastor) 250 mg PO BID [facility] Last Admin: 11/30/17 17:10 Dose: Not Given - Labs Labs: 11/30/17 12:02 11/30/17 12:02 PT 14.7 SECONDS (9.7-12.2) H 11/30/17 12:02 INR 1.3 11/30/17 12:02 APTT 38 SECONDS (21-34) H 11/30/17 12:02 - Constitutional Appears: Non-toxic, No Acute Distress, Older Than Stated Age - Head Exam Head Exam: ATRAUMATIC, NORMAL INSPECTION, NORMOCEPHALIC - Eye Exam Eye Exam: EOMI, Normal appearance - ENT Exam ENT Exam: Mucous Membranes Moist, Normal Exam - Neck Exam Neck Exam: Full ROM, Normal Inspection - Respiratory Exam Respiratory Exam: NORMAL BREATHING PATTERN - Cardiovascular Exam Cardiovascular Exam: REGULAR RHYTHM, +S1, +S2 - GI/Abdominal Exam GI & Abdominal Exam: Soft. absent: Tenderness - Extremities Exam Additional comments: Right hand dressing in place with serosanguinous strike through. radial pulse palpable - Neurological Exam Neurological Exam: Alert, Awake, CN II-XII Intact, Oriented x3 - Psychiatric Exam Psychiatric exam: Normal Affect, Normal Mood - Skin Skin Exam: Dry, Normal Color, Warm Assessment and Plan - Assessment and Plan (Free Text) Assessment: 52M POD#1 s/p; R hand incision and drainage Plan: Will change bandage later today Pain control PRN Cont Abx FU Wound cultures Cont diabetic diet OOBTC Ambulate Further mgmt as per primary team Will JOSE ANTONIO attending Shea, PGY-1
--- NOTE | 2017-12-01 08:15 | CP.PCM.PN ---
Subjective - Date & Time of Evaluation Date of Evaluation: 12/01/17 Time of Evaluation: 07:45 - Subjective Subjective: Hospitalist Progress Note Patient was seen and examined at 7:45 AM 12/01/17 ICU Bed #10. Very pleasant 52 year old male (PMHx: DM 2) who was admitted on 11/30/17 for treatment of Right Hand Cellulitis/Osteomyelitis/Compartment Syndrome that he developed over the course of 2 weeks after being bitten on his Right Thumb by the cat of his neighbor. X Ray of the Right Hand showed no evidence of acute displaced fracture nor dislocation, no obvious cortical destructive changes, diffuse circumferential soft tissue swelling most conspicuous at the dorsal soft tissues. MRI of the Right Hand with/without contrast showed extensive cellulitis and myositis of the right hand, marked soft tissue swelling raises the possibility of early compartment syndrome, enhancement of the proximal and distal phalanges of the first digit could reflect early osteomyelitis. He was started on IV antibiotics and taken to admitted to the ICU. Because of the possibility of early compartment syndrome, patient was taken to the OR on evening of 11/30/17 by Surgery food service lead by Dr. Garcia and I&D was performed. Patient was then taken to the ICU for further monitoring. Upon FULL ROS Pain in the Right Hand has much improved since his admission and he has gained more movement with the Right Hand/Fingers NO dysphagia/odynopahgia NO soreness in throat NO cough NO sinus/nasal congestion NO fever/chills NO chest pain/palpations NO SOB/Wheezing NO abdominal pain NO n/v/d/c NO burning pain with urination NO SHIRLEY NO lightheadedness/dizziness NO paresthesias Exam: General: AAOX3, NAD HEENT: NCA, EOMI, PERRLA, NO cervical/supraclavicular/submandibular lymphadenopathy, NO pharyngeal erythema/exudate, Nasal Turbinates are nonerythematous/nonedematous, Oral Mucosa is moist Cardio: NS1 and NS2, NO M/R/G Resp: CTA B/L, NO R/R/W GI: BSx4, Soft, NT, NO HSM, NO guarding/rebound tenderness Ext: Pulses are strong and equal, Capillary Refill is 2 seconds, NO edema Neuro: CN II through XII are grossly intact Right Hand: wrapped in bandages with the hinojosa surface having dried bright red blood. Capillary Refill is 2 seconds and patient has full sensation in all of the fingers and there is NO cyanosis. Assessment and Plan: 1). Right Hand Cellulitis/Osteomyelitis/Compartment Syndrome S/P I&D on evening 11/30/17 POD #[address] 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 Therefore Medicine Team will get PICC Line on Sunday and speak with with Maintenance Plumber about arranging for outpatient infusion of antibiotic through [address] [place] [address] Infusion center. Status: Acute 2). Post Operative Fever Monitor Tylenol 650 mg PO Q6H PRN Fever F/U Cultures Status: Acute 3). Hx DM 2 NOT on any medications at home. F/U HgBA1C, TSH, T4, Lipid Panel RISS ACHS Hypoglycemic Protocol Lisinopril for Renal Protection Add Statin based upon results of blood work Status: Chronic 4). Prophylaxis Florastor 250 mg PO 2x/day Bilateral SCDs and now will start Heparin 5,000 Units SQ Q12H Protonix 40 mg PO 1x/day as he is on Toradol Toradol 15 mg IV Q6H PRN Moderate Pain Toradol 30 mg IV Q6H PRN Severe Pain Percocet started by Surgery Team was discontinued as patient's pain is controlled and we want to reduce the inflammation with the Toradol. Percocet will be added back on should the pain not be under control Incentive Spirometry: explained to patient the importance of this to prevent Pneumonia post op Heart Healthy Moderate Consistent Diet Barron Bailon D.O. Objective - Vital Signs/Intake and Output Vital Signs (last 24 hours): Temp Pulse Resp BP Pulse Ox 102.3 F H 102 H 18 129/78 97 11/30/17 23:51 11/30/17 18:30 11/30/17 18:30 11/30/17 18:30 11/30/17 18:30 Intake and Output: 12/01/17 12/01/17 06:59 18:59 Intake Total 800 Output Total 400 Balance 400 - Medications Medications: Current Medications Dextrose (Dextrose 50% Inj) 0 ml IV STAT PRN; Protocol PRN Reason: Hypoglycemia Protocol Dextrose (Glutose 15) 15 gm PO ONCE PRN; Protocol PRN Reason: Hypoglycemia Protocol Docusate Sodium (Colace) 100 mg PO DAILY PRN PRN Reason: Constipation Glucagon (Glucagen Diagnostic Kit) 1 mg IM STAT PRN; Protocol PRN Reason: Hypoglycemia Protocol Clindamycin Phosphate (Cleocin In Normal Saline) 600 mg in 50 mls @ 100 mls/hr IVPB Q8H [facility] PRN Reason: Protocol Last Admin: 12/01/17 04:32 Dose: 100 mls/hr Ciprofloxacin (Cipro 400mg/200ml Dsw) 400 mg in 200 mls @ 133 mls/hr IVPB Q12H [facility] PRN Reason: Protocol Last Admin: 12/01/17 01:37 Dose: 133 mls/hr Dextrose (Dextrose 5% In Water 1000 Ml) 1,000 mls @ 0 mls/hr IV .Q0M PRN; Protocol; Per Protocol PRN Reason: Hypoglycemia Protocol Piperacillin Sod/Tazobactam Sod (Zosyn 3.375 Gm Iv Premix) 3.375 gm in 50 mls @ 100 mls/hr IVPB Q6H [facility] PRN Reason: Protocol Last Admin: 12/01/17 06:02 Dose: 100 mls/hr Insulin Human Regular (Novolin R) 0 unit SC ACHS [facility] PRN Reason: Protocol Last Admin: 11/30/17 22:07 Dose: Not Given Ketorolac Tromethamine (Toradol) 30 mg IVP Q6H PRN PRN Reason: Pain, severe (8-10) Ketorolac Tromethamine (Toradol) 15 mg IVP Q6H PRN PRN Reason: Pain, moderate (4-7) Oxycodone/Acetaminophen (Percocet 5/325 Mg Tab) 1 tab PO Q4H PRN PRN Reason: Pain, moderate (4-7) Stop: 12/03/17 20:28 Last Admin: 11/30/17 23:51 Dose: 1 tab Saccharomyces Boulardii (Florastor) 250 mg PO BID [facility] Last Admin: 11/30/17 17:10 Dose: Not Given - Labs Labs: 11/30/17 12:02 11/30/17 12:02 PT 14.7 SECONDS (9.7-12.2) H 11/30/17 12:02 INR 1.3 11/30/17 12:02 APTT 38 SECONDS (21-34) H 11/30/17 12:02
--- NOTE | 2017-12-01 08:18 | RAD ---
PROCEDURE: CHEST RADIOGRAPH, 1 VIEW HISTORY: Surgical Clearance COMPARISON: Portable chest 11/30/2017. FINDINGS: LUNGS: Limited patchy atelectasis or infiltrate is seen at the left perihilar region, the lingula and medial right base in the interval. Overall inspiratory volume appears slightly diminished. PLEURA: No pneumothorax or pleural fluid seen. CARDIOVASCULAR: Cardiomediastinal silhouette appears stable. OSSEOUS STRUCTURES: No significant abnormalities. VISUALIZED UPPER ABDOMEN: Normal. OTHER FINDINGS: None. IMPRESSION: Interval limited airspace disease seen bilaterally as discussed above. No pleural effusion or pneumothorax. No pulmonary vascular congestion.
[2017-12-01] MEDS: (Novolin R) Insulin Human Regular 100 units/ml vial SC SCH ×4 (08:39→23:57)
[2017-12-01] MEDS ORDERED: Lactated Ringer's 1,000 ML IV ONE (10:16)
[2017-12-01 10:20] LABS: BASO # 0.1 K/uL (0.0-0.2); BASO % 0.5 % (0.0-2.0); EOS # 0.1 K/uL (0.0-0.7); EOS % 0.2 % (0.0-4.0); LYMPH # 1.5 K/uL (1.0-4.3); LYMPH % 6.6 % (20.0-40.0); MEAN CELL VOLUME 81.8 fL (80.0-94.0); MEAN CORPUSCULAR HEMOGLOBIN 27.9 pg (27.0-31.0); MEAN CORPUSCULAR HGB CONC 34.1 g/dL (33.0-37.0); MEAN PLATELET VOLUME 9.3 fL (7.2-11.7); MONO # 1.6 K/uL (0.0-0.8); NEUT # 19.2 K/uL (1.8-7.0); NEUT % 85.7 % (50.0-75.0); PLATELET COUNT 404 K/uL (130-400); RBC 4.32 Mil/uL (4.40-5.90); RED CELL DISTRIBUTION WIDTH 13.3 % (11.5-14.5)
[2017-12-01 10:21] LABS: WHITE BLOOD COUNT 22.4 K/uL (4.8-10.8)
[2017-12-01] MEDS: Pantoprazole 40 mg EC Tab PO SCH (10:29)
[2017-12-01] MEDS: Saccharomyces Boulardi 250 mg Cap PO SCH ×2 (10:29→17:07)
[2017-12-01 11:03] LABS: ALB/GLOB RATIO 0.7 (1.0-2.1); ALBUMIN 3.3 g/dL (3.5-5.0); ALT/SGPT 9 U/L (21-72); AST/SGOT 28 U/L (17-59); BLOOD UREA NITROGEN 12 mg/dL (9-20); CALCIUM 8.8 mg/dl (8.6-10.4); GFR AFRICAN-AMERICAN > 60; GFR NON-AFRICAN AMERICAN > 60; HDL CHOLESTEROL 21 mg/dL (30-70)
[2017-12-01 11:11] LABS: LDL CHOLESTEROL 67 mg/dL (0-129)
[2017-12-01 11:59] LABS: LYMPHOCYTE 8 % (20-40); MONOCYTE 7 % (0-10); NEUTROPHIL 85 % (50-75); TOTAL CELLS COUNTED 100
[2017-12-01 12:00] LABS: ANISOCYTOSIS SLIGHT; GIANT PLATELETS PRESENT; LARGE PLATELETS PRESENT; PLATELET ESTIMATE NORMAL (NORMAL); TOXIC GRANULATION PRESENT
[2017-12-01 12:01] LABS: MICROCYTOSIS SLIGHT; POLYCHROMIC SLIGHT
[2017-12-01] MEDS ORDERED: oxyCODONE 5 mg Immediate Release Tab PO STA (14:34)
[2017-12-02] MEDS: Ciprofloxacin 400mg/200ml D5W 400 MG/200 ML BAG IVPB SCH ×2 (00:02→13:51)
[2017-12-02] MEDS: Clindamycin 600mg/50ml NS 600 MG/50 ML BAG IVPB SCH ×3 (03:04→19:55)
[2017-12-02] MEDS: Piperacill/Tazo 3.375gm in Dex 3.375 GM/50 ML BAG IVPB SCH ×3 (05:10→17:45)
[2017-12-02 06:24] LABS: BASO # 0.1 K/uL (0.0-0.2); BASO % 0.7 % (0.0-2.0); EOS # 0.2 K/uL (0.0-0.7); EOS % 1.5 % (0.0-4.0); HEMOGLOBIN 11.9 g/dL (12.0-18.0); LYMPH # 1.8 K/uL (1.0-4.3); LYMPH % 13.7 % (20.0-40.0); MEAN CELL VOLUME 81.8 fL (80.0-94.0); MEAN CORPUSCULAR HGB CONC 34.2 g/dL (33.0-37.0); MEAN PLATELET VOLUME 9.3 fL (7.2-11.7); MONO # 1.3 K/uL (0.0-0.8); MONO % 9.9 % (0.0-10.0); NEUT # 9.8 K/uL (1.8-7.0); NEUT % 74.2 % (50.0-75.0); RBC 4.25 Mil/uL (4.40-5.90); RED CELL DISTRIBUTION WIDTH 13.1 % (11.5-14.5); WHITE BLOOD COUNT 13.2 K/uL (4.8-10.8)
[2017-12-02 06:38] LABS: ALB/GLOB RATIO 0.7 (1.0-2.1); ALBUMIN 3.2 g/dL (3.5-5.0); ALT/SGPT 8 U/L (21-72); AST/SGOT 28 U/L (17-59); BLOOD UREA NITROGEN 16 mg/dL (9-20); CALCIUM 8.9 mg/dl (8.6-10.4); GFR AFRICAN-AMERICAN > 60; GFR NON-AFRICAN AMERICAN > 60
[2017-12-02] MEDS: (Novolin R) Insulin Human Regular 100 units/ml vial SC SCH ×4 (07:22→21:53)
--- NOTE | 2017-12-02 07:56 | CP.PCM.PN ---
Subjective - Date & Time of Evaluation Date of Evaluation: 12/02/17 Time of Evaluation: 07:45 - Subjective Subjective: Hospitalist Progress Note Patient was seen and examined at 7:45 AM 12/02/17 ICU Bed #10. Very pleasant 52 year old male (PMHx: DM 2) who was admitted on 11/30/17 for treatment of Right Hand Cellulitis/Osteomyelitis/Compartment Syndrome that he developed over the course of 2 weeks after being bitten on his Right Thumb by the cat of his neighbor. X Ray of the Right Hand showed no evidence of acute displaced fracture nor dislocation, no obvious cortical destructive changes, diffuse circumferential soft tissue swelling most conspicuous at the dorsal soft tissues. MRI of the Right Hand with/without contrast showed extensive cellulitis and myositis of the right hand, marked soft tissue swelling raises the possibility of early compartment syndrome, enhancement of the proximal and distal phalanges of the first digit could reflect early osteomyelitis. He was started on IV antibiotics and taken to admitted to the ICU. Because of the possibility of early compartment syndrome, patient was taken to the OR on evening of 11/30/17 by Surgery leadership development consultant by Dr. Garcia and I&D was performed. Patient was then taken to the ICU for further monitoring and was then transferred to medical/surgical floor on 12/01/17. Upon FULL ROS Pain in the Right Hand has much improved since his admission and he has gained more movement with the Right Hand/Fingers NO dysphagia/odynopahgia NO soreness in throat NO cough NO sinus/nasal congestion NO fever/chills NO chest pain/palpations NO SOB/Wheezing NO abdominal pain NO n/v/d/c: has not moved his bowels since the I&D on 11/30/17 evening but is continuing to pass flatus NO burning pain with urination NO SHIRLEY NO lightheadedness/dizziness NO paresthesias Exam: General: AAOX3, NAD HEENT: NCA, EOMI, PERRLA, NO cervical/supraclavicular/submandibular lymphadenopathy, NO pharyngeal erythema/exudate, Nasal Turbinates are nonerythematous/nonedematous, Oral Mucosa is moist Cardio: NS1 and NS2, NO M/R/G Resp: CTA B/L, NO R/R/W GI: BSx4, Soft, NT, NO HSM, NO guarding/rebound tenderness Ext: Pulses are strong and equal, Capillary Refill is 2 seconds, NO edema Neuro: CN II through XII are grossly intact Right Hand: wrapped in bandages with the hinojosa surface having dried bright red blood. Capillary Refill is 2 seconds and patient has full sensation in all of the fingers and there is NO cyanosis. Assessment and Plan: 1). Right Hand Cellulitis/Osteomyelitis/Compartment Syndrome S/P I&D on evening 11/30/17 POD #[address] 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 Therefore Medicine Team will get PICC Line on Sunday12/03/17 and speak with with Groundman about arranging for outpatient infusion of antibiotic through [address] [place] [address]. Status: Acute 2). Post Operative Fever Monitor Tylenol 650 mg PO Q6H PRN Fever Blood Culture is negative to date Status: Acute 3). Hx DM 2 NOT on any medications at home. F/U HgBA1C T4 is slightly elevated at 2.35 with TSH normal: repeat in 2 to 4 weeks as outpatient LDL at goat at 67, Total Cholesterol 116, Triglycerides 96, and HDL low at 21: Crestor 5 mg PO HS for now and discharge on Atorvastatin 10 mg PO HS RISS ACHS Hypoglycemic Protocol Lisinopril 2.5 mg PO 1x/day for Renal Protection Status: Chronic 4). Prophylaxis Colace 100 mg PO 2x/day: patient also instructed to get up and walk 10 laps around the med/surg unit every 2 hours to help start moving his bowels Florastor 250 mg PO 2x/day Bilateral SCDs and Heparin 5,000 Units SQ Q12H Protonix 40 mg PO 1x/day as he is on Toradol Toradol 15 mg IV Q6H PRN Moderate Pain Toradol 30 mg IV Q6H PRN Severe Pain Percocet started by Surgery Team was discontinued 12/01/17 as patient's pain is controlled and we want to reduce the inflammation with the Toradol. Percocet will be added back on PRN should the pain not be under control Incentive Spirometry: explained to patient the importance of this to prevent Pneumonia post op Heart Healthy Moderate Consistent Diet Barron Balion D.O. Objective - Vital Signs/Intake and Output Vital Signs (last 24 hours): Temp Pulse Resp BP Pulse Ox 98.1 F 98 H 19 113/67 95 12/02/17 00:00 12/02/17 00:00 12/02/17 00:00 12/02/17 00:00 12/02/17 00:00 Intake and Output: 12/02/17 12/02/17 06:59 18:59 Intake Total 650 Output Total 1000 Balance -350 - Medications Medications: Current Medications Dextrose (Dextrose 50% Inj) 0 ml IV STAT PRN; Protocol PRN Reason: Hypoglycemia Protocol Dextrose (Glutose 15) 15 gm PO ONCE PRN; Protocol PRN Reason: Hypoglycemia Protocol Docusate Sodium (Colace) 100 mg PO DAILY PRN PRN Reason: Constipation Glucagon (Glucagen Diagnostic Kit) 1 mg IM STAT PRN; Protocol PRN Reason: Hypoglycemia Protocol Heparin Sodium (Porcine) (Heparin) 5,000 units SC Q12 [facility] Last Admin: 12/01/17 21:23 Dose: 5,000 units Clindamycin Phosphate (Cleocin In Normal Saline) 600 mg in 50 mls @ 100 mls/hr IVPB Q8H ANGELA PRN Reason: Protocol Last Admin: 12/02/17 03:04 Dose: 100 mls/hr Ciprofloxacin (Cipro 400mg/200ml Dsw) 400 mg in 200 mls @ 133 mls/hr IVPB Q12H ANGELA PRN Reason: Protocol Last Admin: 12/02/17 00:02 Dose: 133 mls/hr Dextrose (Dextrose 5% In Water 1000 Ml) 1,000 mls @ 0 mls/hr IV .Q0M PRN; Protocol; Per Protocol PRN Reason: Hypoglycemia Protocol Piperacillin Sod/Tazobactam Sod (Zosyn 3.375 Gm Iv Premix) 3.375 gm in 50 mls @ 100 mls/hr IVPB Q6H ANGELA PRN Reason: Protocol Last Admin: 12/02/17 05:10 Dose: 100 mls/hr Insulin Human Regular (Novolin R) 0 unit SC ACHS ANGELA PRN Reason: Protocol Last Admin: 12/02/17 07:22 Dose: Not Given Ketorolac Tromethamine (Toradol) 30 mg IVP Q6H PRN PRN Reason: Pain, severe (8-10) Last Admin: 12/01/17 20:07 Dose: 30 mg Ketorolac Tromethamine (Toradol) 15 mg IVP Q6H PRN PRN Reason: Pain, moderate (4-7) Lisinopril (Zestril) 2.5 mg PO DAILY [facility] Last Admin: 12/01/17 16:35 Dose: Not Given Pantoprazole Sodium (Protonix Ec Tab) 40 mg PO DAILY [facility] Last Admin: 12/01/17 10:29 Dose: 40 mg Potassium Chloride (K-Dur 20 Meq Er Tab) 40 meq PO ONCE ONE Stop: 12/02/17 10:01 Saccharomyces Boulardii (Florastor) 250 mg PO BID [facility] Last Admin: 12/01/17 17:07 Dose: 250 mg - Labs Labs: 12/02/17 06:17 12/02/17 06:17 PT 14.7 SECONDS (9.7-12.2) H 11/30/17 12:02 INR 1.3 11/30/17 12:02 APTT 38 SECONDS (21-34) H 11/30/17 12:02
[2017-12-02] MEDS: Saccharomyces Boulardi 250 mg Cap PO SCH ×2 (09:05→17:46)
[2017-12-02] MEDS: Pantoprazole 40 mg EC Tab PO SCH (09:05)
--- NOTE | 2017-12-02 09:06 | CP.PCM.PN ---
Subjective - Date & Time of Evaluation Date of Evaluation: 12/02/17 Time of Evaluation: 07:30 - Subjective Subjective: Patient seen and examined this AM. on the surgical floor. Patient is improved this AM with less pain, afebrile overnight, tachycardia in the 90's down from 110 yesterday. Patient states his numbness has decreased and he is able to move his hand more freely. Objective - Vital Signs/Intake and Output Vital Signs (last 24 hours): Temp Pulse Resp BP Pulse Ox 98.1 F 98 H 19 113/67 95 12/02/17 00:00 12/02/17 00:00 12/02/17 00:00 12/02/17 00:00 12/02/17 00:00 Intake and Output: 12/02/17 12/02/17 06:59 18:59 Intake Total 650 Output Total 1000 Balance -350 - Medications Medications: Current Medications Dextrose (Dextrose 50% Inj) 0 ml IV STAT PRN; Protocol PRN Reason: Hypoglycemia Protocol Dextrose (Glutose 15) 15 gm PO ONCE PRN; Protocol PRN Reason: Hypoglycemia Protocol Docusate Sodium (Colace) 100 mg PO BID ANGELA Glucagon (Glucagen Diagnostic Kit) 1 mg IM STAT PRN; Protocol PRN Reason: Hypoglycemia Protocol Heparin Sodium (Porcine) (Heparin) 5,000 units SC Q12 [facility] Last Admin: 12/01/17 21:23 Dose: 5,000 units Clindamycin Phosphate (Cleocin In Normal Saline) 600 mg in 50 mls @ 100 mls/hr IVPB Q8H ANGELA PRN Reason: Protocol Last Admin: 12/02/17 03:04 Dose: 100 mls/hr Ciprofloxacin (Cipro 400mg/200ml Dsw) 400 mg in 200 mls @ 133 mls/hr IVPB Q12H ANGELA PRN Reason: Protocol Last Admin: 12/02/17 00:02 Dose: 133 mls/hr Dextrose (Dextrose 5% In Water 1000 Ml) 1,000 mls @ 0 mls/hr IV .Q0M PRN; Protocol; Per Protocol PRN Reason: Hypoglycemia Protocol Piperacillin Sod/Tazobactam Sod (Zosyn 3.375 Gm Iv Premix) 3.375 gm in 50 mls @ 100 mls/hr IVPB Q6H ANGELA PRN Reason: Protocol Last Admin: 12/02/17 05:10 Dose: 100 mls/hr Insulin Human Regular (Novolin R) 0 unit SC ACHS ANGELA PRN Reason: Protocol Last Admin: 12/02/17 07:22 Dose: Not Given Ketorolac Tromethamine (Toradol) 30 mg IVP Q6H PRN PRN Reason: Pain, severe (8-10) Last Admin: 12/02/17 07:51 Dose: 30 mg Ketorolac Tromethamine (Toradol) 15 mg IVP Q6H PRN PRN Reason: Pain, moderate (4-7) Lisinopril (Zestril) 2.5 mg PO DAILY [facility] Last Admin: 12/01/17 16:35 Dose: Not Given Pantoprazole Sodium (Protonix Ec Tab) 40 mg PO DAILY [facility] Last Admin: 12/01/17 10:29 Dose: 40 mg Potassium Chloride (K-Dur 20 Meq Er Tab) 40 meq PO ONCE ONE Stop: 12/02/17 10:01 Rosuvastatin Calcium (Crestor) 5 mg PO [facility] Saccharomyces Boulardii (Florastor) 250 mg PO BID [facility] Last Admin: 12/01/17 17:07 Dose: 250 mg - Labs Labs: 12/02/17 06:17 12/02/17 06:17 PT 14.7 SECONDS (9.7-12.2) H 11/30/17 12:02 INR 1.3 11/30/17 12:02 APTT 38 SECONDS (21-34) H 11/30/17 12:02 - Constitutional Appears: Well, Non-toxic, No Acute Distress - Head Exam Head Exam: ATRAUMATIC, NORMOCEPHALIC - Eye Exam Eye Exam: Normal appearance. absent: Conjunctival injection, Scleral icterus - ENT Exam ENT Exam: Mucous Membranes Moist, Normal Oropharynx - Respiratory Exam Respiratory Exam: NORMAL BREATHING PATTERN. absent: Accessory Muscle Use, Respiratory Distress - Extremities Exam Extremities Exam: absent: Calf Tenderness, Pedal Edema Additional comments: right hand with decreasing edema and swelling. Flexion and extension of the fingers intact, pulses intact, incision packed with iodoform dressing with large amount of purulent drainage. - Neurological Exam Neurological Exam: Alert, Awake, Oriented x3 - Psychiatric Exam Psychiatric exam: Normal Affect, Normal Mood - Skin Skin Exam: Dry, Intact, Normal Color, Warm Additional comments: except as noted above Assessment and Plan - Assessment and Plan (Free Text) Assessment: 52M with cellulitis and abscess of the right hand POD#2 s/p I&D and debridement Plan: -Contineu IV antibiotics per ID recs -Continue daily packing changes -Continue PRN pain medication -Continue to monitor CBC--WBC greatly decreased today -Continue to monitor vitals for fevers and tachycardia Discussed with Dr. Jose Meeks, PGY2
[2017-12-02] MEDS ORDERED: Potassium Chloride 20 mEq ER Tab PO ONE (10:00)
--- NOTE | 2017-12-02 15:22 | CP.PCM.PN ---
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 infection OK to d/c Clinda if no MRSA found may need 6 weeks rx for OM Objective - Vital Signs/Intake and Output Vital Signs (last 24 hours): Temp Pulse Resp BP Pulse Ox 98.6 F 102 H 20 131/84 95 12/02/17 10:00 12/02/17 10:00 12/02/17 10:00 12/02/17 10:00 12/02/17 10:00 Intake and Output: 12/02/17 12/02/17 06:59 18:59 Intake Total 650 720 Output Total 1000 Balance -350 720 - Medications Medications: Current Medications Dextrose (Dextrose 50% Inj) 0 ml IV STAT PRN; Protocol PRN Reason: Hypoglycemia Protocol Dextrose (Glutose 15) 15 gm PO ONCE PRN; Protocol PRN Reason: Hypoglycemia Protocol Docusate Sodium (Colace) 100 mg PO BID [facility] Last Admin: 12/02/17 09:05 Dose: 100 mg Glucagon (Glucagen Diagnostic Kit) 1 mg IM STAT PRN; Protocol PRN Reason: Hypoglycemia Protocol Heparin Sodium (Porcine) (Heparin) 5,000 units SC Q12 [facility] Last Admin: 12/02/17 09:05 Dose: 5,000 units Clindamycin Phosphate (Cleocin In Normal Saline) 600 mg in 50 mls @ 100 mls/hr IVPB Q8H ANGELA PRN Reason: Protocol Last Admin: 12/02/17 11:03 Dose: 100 mls/hr Ciprofloxacin (Cipro 400mg/200ml Dsw) 400 mg in 200 mls @ 133 mls/hr IVPB Q12H ANGELA PRN Reason: Protocol Last Admin: 12/02/17 13:51 Dose: 133 mls/hr Dextrose (Dextrose 5% In Water 1000 Ml) 1,000 mls @ 0 mls/hr IV .Q0M PRN; Protocol; Per Protocol PRN Reason: Hypoglycemia Protocol Piperacillin Sod/Tazobactam Sod (Zosyn 3.375 Gm Iv Premix) 3.375 gm in 50 mls @ 100 mls/hr IVPB Q6H ANGELA PRN Reason: Protocol Last Admin: 12/02/17 11:01 Dose: 100 mls/hr Insulin Human Regular (Novolin R) 0 unit SC ACHS ANGELA PRN Reason: Protocol Last Admin: 12/02/17 12:20 Dose: 1 unit Ketorolac Tromethamine (Toradol) 30 mg IVP Q6H PRN PRN Reason: Pain, severe (8-10) Last Admin: 12/02/17 07:51 Dose: 30 mg Ketorolac Tromethamine (Toradol) 15 mg IVP Q6H PRN PRN Reason: Pain, moderate (4-7) Lisinopril (Zestril) 2.5 mg PO DAILY [facility] Last Admin: 12/02/17 11:00 Dose: 2.5 mg Pantoprazole Sodium (Protonix Ec Tab) 40 mg PO DAILY [facility] Last Admin: 12/02/17 09:05 Dose: 40 mg Rosuvastatin Calcium (Crestor) 5 mg PO [facility] Saccharomyces Boulardii (Florastor) 250 mg PO BID [facility] Last Admin: 12/02/17 09:05 Dose: 250 mg - Labs Labs: 12/02/17 06:17 12/02/17 06:17 PT 14.7 SECONDS (9.7-12.2) H 11/30/17 12:02 INR 1.3 11/30/17 12:02 APTT 38 SECONDS (21-34) H 11/30/17 12:02 - Constitutional Appears: Non-toxic, Chronically Ill - Head Exam Head Exam: NORMOCEPHALIC - Eye Exam Eye Exam: PERRL. absent: Scleral icterus - ENT Exam ENT Exam: Mucous Membranes Dry - Neck Exam Neck Exam: absent: Lymphadenopathy - Respiratory Exam Respiratory Exam: Decreased Breath Sounds - Cardiovascular Exam Cardiovascular Exam: REGULAR RHYTHM - GI/Abdominal Exam GI & Abdominal Exam: Distended, Soft - Rectal Exam Rectal Exam: Deferred Assessment and Plan (1) Cat bite involving extremity Status: Acute (2) Sepsis affecting skin Status: Acute (3) Cellulitis and abscess of hand Status: Acute (4) Necrotizing fasciitis due to microorganism Status: Acute (5) Osteomyelitis Status: Acute
--- NOTE | 2017-12-02 19:09 | CP.PCM.PCO ---
Physician Communication Note - Physician Communication Note Physician Communication Note: NPO after midnight 12/03/17 for OR 12/04/17 for further exam/washout
[2017-12-03] MEDS: Piperacill/Tazo 3.375gm in Dex 3.375 GM/50 ML BAG IVPB SCH ×3 (00:24→11:12)
[2017-12-03] MEDS: Ciprofloxacin 400mg/200ml D5W 400 MG/200 ML BAG IVPB SCH ×2 (01:03→14:57)
[2017-12-03] MEDS: Clindamycin 600mg/50ml NS 600 MG/50 ML BAG IVPB SCH (03:18)
[2017-12-03 07:15] LABS: BASO % 0.4 % (0.0-2.0); EOS # 0.1 K/uL (0.0-0.7); EOS % 1.8 % (0.0-4.0); HEMOGLOBIN 11.4 g/dL (12.0-18.0); LYMPH # 1.4 K/uL (1.0-4.3); LYMPH % 17.1 % (20.0-40.0); MEAN CORPUSCULAR HEMOGLOBIN 28.5 pg (27.0-31.0); MEAN CORPUSCULAR HGB CONC 34.8 g/dL (33.0-37.0); MEAN PLATELET VOLUME 9.3 fL (7.2-11.7); MONO % 12.1 % (0.0-10.0); NEUT # 5.7 K/uL (1.8-7.0); NEUT % 68.6 % (50.0-75.0); RED CELL DISTRIBUTION WIDTH 13.3 % (11.5-14.5); WHITE BLOOD COUNT 8.4 K/uL (4.8-10.8)
[2017-12-03 07:20] LABS: BASO % 0.4 % (0.0-2.0); EOS # 0.2 K/uL (0.0-0.7); HEMOGLOBIN 11.3 g/dL (12.0-18.0); LYMPH # 1.4 K/uL (1.0-4.3); LYMPH % 17.2 % (20.0-40.0); MEAN CORPUSCULAR HEMOGLOBIN 28.2 pg (27.0-31.0); MEAN CORPUSCULAR HGB CONC 34.4 g/dL (33.0-37.0); MEAN PLATELET VOLUME 9.2 fL (7.2-11.7); MONO % 12.2 % (0.0-10.0); NEUT # 5.6 K/uL (1.8-7.0); NEUT % 68.2 % (50.0-75.0); RBC 4.01 Mil/uL (4.40-5.90); RED CELL DISTRIBUTION WIDTH 13.2 % (11.5-14.5); WHITE BLOOD COUNT 8.3 K/uL (4.8-10.8)
--- NOTE | 2017-12-03 08:04 | CP.PCM.PN ---
Subjective - Date & Time of Evaluation Date of Evaluation: 12/03/17 Time of Evaluation: 08:01 - Subjective Subjective: Hand Surgery: Dr. Garcia Pt seen and examined. No acute overnight events. States he feels well, and is able to move his R hand/fingers better. Denies any other complaints at this time. Denies F/C. Objective - Vital Signs/Intake and Output Vital Signs (last 24 hours): Temp Pulse Resp BP Pulse Ox 98.4 F 115 H 20 124/84 95 12/02/17 23:45 12/02/17 23:45 12/02/17 23:45 12/02/17 23:45 12/02/17 23:45 Intake and Output: 12/03/17 12/03/17 06:59 18:59 Intake Total 470 Balance 470 - Medications Medications: Current Medications Dextrose (Dextrose 50% Inj) 0 ml IV STAT PRN; Protocol PRN Reason: Hypoglycemia Protocol Dextrose (Glutose 15) 15 gm PO ONCE PRN; Protocol PRN Reason: Hypoglycemia Protocol Docusate Sodium (Colace) 100 mg PO BID [facility] Last Admin: 12/02/17 17:46 Dose: 100 mg Glucagon (Glucagen Diagnostic Kit) 1 mg IM STAT PRN; Protocol PRN Reason: Hypoglycemia Protocol Heparin Sodium (Porcine) (Heparin) 5,000 units SC Q12 [facility] Last Admin: 12/02/17 21:20 Dose: 5,000 units Clindamycin Phosphate (Cleocin In Normal Saline) 600 mg in 50 mls @ 100 mls/hr IVPB Q8H ANGELA PRN Reason: Protocol Last Admin: 12/03/17 03:18 Dose: 100 mls/hr Ciprofloxacin (Cipro 400mg/200ml Dsw) 400 mg in 200 mls @ 133 mls/hr IVPB Q12H ANGELA PRN Reason: Protocol Last Admin: 12/03/17 01:03 Dose: 133 mls/hr Dextrose (Dextrose 5% In Water 1000 Ml) 1,000 mls @ 0 mls/hr IV .Q0M PRN; Protocol; Per Protocol PRN Reason: Hypoglycemia Protocol Piperacillin Sod/Tazobactam Sod (Zosyn 3.375 Gm Iv Premix) 3.375 gm in 50 mls @ 100 mls/hr IVPB Q6H ANGELA PRN Reason: Protocol Last Admin: 12/03/17 05:24 Dose: 100 mls/hr Insulin Human Regular (Novolin R) 0 unit SC ACHS ANGELA PRN Reason: Protocol Last Admin: 12/02/17 21:53 Dose: Not Given Ketorolac Tromethamine (Toradol) 30 mg IVP Q6H PRN PRN Reason: Pain, severe (8-10) Last Admin: 12/03/17 07:09 Dose: 30 mg Ketorolac Tromethamine (Toradol) 15 mg IVP Q6H PRN PRN Reason: Pain, moderate (4-7) Last Admin: 12/03/17 00:22 Dose: 15 mg Lisinopril (Zestril) 2.5 mg PO DAILY [facility] Last Admin: 12/02/17 11:00 Dose: 2.5 mg Pantoprazole Sodium (Protonix Ec Tab) 40 mg PO DAILY [facility] Last Admin: 12/02/17 09:05 Dose: 40 mg Rosuvastatin Calcium (Crestor) 5 mg PO HS [facility] Last Admin: 12/02/17 21:20 Dose: 5 mg Saccharomyces Boulardii (Florastor) 250 mg PO BID [facility] Last Admin: 12/02/17 17:46 Dose: 250 mg - Labs Labs: 12/03/17 06:57 12/02/17 06:17 PT 14.7 SECONDS (9.7-12.2) H 11/30/17 12:02 INR 1.3 11/30/17 12:02 APTT 38 SECONDS (21-34) H 11/30/17 12:02 - Constitutional Appears: Well, No Acute Distress - Eye Exam Eye Exam: Normal appearance - ENT Exam ENT Exam: Mucous Membranes Moist - Respiratory Exam Respiratory Exam: NORMAL BREATHING PATTERN - Cardiovascular Exam Cardiovascular Exam: Tachycardia - GI/Abdominal Exam GI & Abdominal Exam: Soft - Extremities Exam Additional comments: R hand s/p I&D; reduced edema/erythema compared to days prior. Packing in place. Sensation & motor intact - Neurological Exam Neurological Exam: Alert, Awake, Oriented x3 - Skin Skin Exam: Dry, Warm Assessment and Plan - Assessment and Plan (Free Text) Assessment: 52M s/p cat bite with R hand abscess/cellulitis s/p I&D; POD#3 Plan: - cont IV ABX - plan for OR tomorrow AM for further washout and debridement - d/w Dr. Jose Manuel, PGY-3
[2017-12-03 08:14] LABS: BLOOD UREA NITROGEN 18 mg/dL (9-20); GFR AFRICAN-AMERICAN > 60; GFR NON-AFRICAN AMERICAN > 60
[2017-12-03 08:15] LABS: ALB/GLOB RATIO 0.7 (1.0-2.1); ALT/SGPT 12 U/L (21-72); AST/SGOT 27 U/L (17-59); CALCIUM 8.4 mg/dl (8.6-10.4)
[2017-12-03] MEDS: (Novolin R) Insulin Human Regular 100 units/ml vial SC SCH ×4 (08:30→22:06)
--- NOTE | 2017-12-03 11:03 | CP.PCM.PN ---
Subjective - Date & Time of Evaluation Date of Evaluation: 12/03/17 Time of Evaluation: 09:00 - Subjective Subjective: wound + pasteurella ok to d/c clinda Objective - Vital Signs/Intake and Output Vital Signs (last 24 hours): Temp Pulse Resp BP Pulse Ox 98.4 F 115 H 20 124/84 95 12/02/17 23:45 12/02/17 23:45 12/02/17 23:45 12/02/17 23:45 12/02/17 23:45 Intake and Output: 12/03/17 12/03/17 06:59 18:59 Intake Total 470 Balance 470 - Medications Medications: Current Medications Dextrose (Dextrose 50% Inj) 0 ml IV STAT PRN; Protocol PRN Reason: Hypoglycemia Protocol Dextrose (Glutose 15) 15 gm PO ONCE PRN; Protocol PRN Reason: Hypoglycemia Protocol Docusate Sodium (Colace) 100 mg PO BID [facility] Last Admin: 12/02/17 17:46 Dose: 100 mg Glucagon (Glucagen Diagnostic Kit) 1 mg IM STAT PRN; Protocol PRN Reason: Hypoglycemia Protocol Heparin Sodium (Porcine) (Heparin) 5,000 units SC Q12 [facility] Last Admin: 12/02/17 21:20 Dose: 5,000 units Ciprofloxacin (Cipro 400mg/200ml Dsw) 400 mg in 200 mls @ 133 mls/hr IVPB Q12H [facility] PRN Reason: Protocol Last Admin: 12/03/17 01:03 Dose: 133 mls/hr Dextrose (Dextrose 5% In Water 1000 Ml) 1,000 mls @ 0 mls/hr IV .Q0M PRN; Protocol; Per Protocol PRN Reason: Hypoglycemia Protocol Piperacillin Sod/Tazobactam Sod (Zosyn 3.375 Gm Iv Premix) 3.375 gm in 50 mls @ 100 mls/hr IVPB Q6H [facility] PRN Reason: Protocol Last Admin: 12/03/17 05:24 Dose: 100 mls/hr Insulin Human Regular (Novolin R) 0 unit SC ACHS [facility] PRN Reason: Protocol Last Admin: 12/03/17 08:30 Dose: 1 unit Ketorolac Tromethamine (Toradol) 30 mg IVP Q6H PRN PRN Reason: Pain, severe (8-10) Last Admin: 12/03/17 07:09 Dose: 30 mg Ketorolac Tromethamine (Toradol) 15 mg IVP Q6H PRN PRN Reason: Pain, moderate (4-7) Last Admin: 12/03/17 00:22 Dose: 15 mg Lisinopril (Zestril) 2.5 mg PO DAILY [facility] Last Admin: 12/02/17 11:00 Dose: 2.5 mg Pantoprazole Sodium (Protonix Ec Tab) 40 mg PO DAILY [facility] Last Admin: 12/02/17 09:05 Dose: 40 mg Rosuvastatin Calcium (Crestor) 5 mg PO HS [facility] Last Admin: 12/02/17 21:20 Dose: 5 mg Saccharomyces Boulardii (Florastor) 250 mg PO BID [facility] Last Admin: 12/02/17 17:46 Dose: 250 mg - Labs Labs: 12/03/17 06:57 12/03/17 06:57 PT 14.7 SECONDS (9.7-12.2) H 11/30/17 12:02 INR 1.3 11/30/17 12:02 APTT 38 SECONDS (21-34) H 11/30/17 12:02 - Constitutional Appears: Non-toxic, Chronically Ill - Head Exam Head Exam: NORMOCEPHALIC - Eye Exam Eye Exam: PERRL - ENT Exam ENT Exam: Mucous Membranes Dry - Neck Exam Neck Exam: absent: Lymphadenopathy - Respiratory Exam Respiratory Exam: Decreased Breath Sounds - Cardiovascular Exam Cardiovascular Exam: REGULAR RHYTHM - GI/Abdominal Exam GI & Abdominal Exam: Distended Assessment and Plan (1) Cat bite involving extremity Status: Acute (2) Sepsis affecting skin Status: Acute (3) Cellulitis and abscess of hand Status: Acute (4) Necrotizing fasciitis due to microorganism Status: Acute (5) Osteomyelitis Status: Acute
[2017-12-03] MEDS: Pantoprazole 40 mg EC Tab PO SCH (11:11)
[2017-12-03] MEDS: Saccharomyces Boulardi 250 mg Cap PO SCH ×2 (11:11→17:21)
--- NOTE | 2017-12-03 13:52 | PCM.SURG1 ---
Surgeon's Initial Post Op Note - Surgeon's Notes Surgeon: Presley Mack MD Tools Administrator: None Type of Anesthesia: Local Pre-Operative Diagnosis: infection Operative Findings: patent left basilic vein. catheter length: 48 cm. catheter tip: cavoatrial junction Post-Operative Diagnosis: same Operation Performed: LUE PICC Insertion Specimen/Specimens Removed: n/a Estimated Blood Loss: EBL {In ML}: 3 Date of Surgery/Procedure: 12/03/17 Time of Surgery/Procedure: 13:51
--- NOTE | 2017-12-03 14:26 | US ---
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 COMPARISON: None. PROCEDURE: 1. Focused ultrasound of the left upper extremity vasculature. 2. Ultrasound-guided access. 3. Insertion of peripherally inserted central venous catheter. 4. Fluoroscopic localization of catheter tip. PRE-PROCEDURE FINDINGS: 1. Patent left basilic vein. POST-PROCEDURE FINDINGS: 1. Placement of 4 [place] single-lumen PICC. 2. Catheter length: 48 cm. 3. Catheter tip at cavoatrial junction. INTERVENTIONAL RADIOLOGIST: Presley Mack M.D. (the attending was present for the entire procedure) ANESTHESIA: None. MEDICATION: Lidocaine 1% for local subcutaneous analgesia. COMPLICATIONS: None. RADIATION DOSE: Fluoroscopy Time: 78.9 seconds Cumulative Dose: 0.24853 mGym2 PROCEDURE DESCRIPTION AND FINDINGS: The risks, benefits, alternatives and possible complications of the procedure were fully discussed; all questions were answered and informed consent was obtained. The patient was brought into the interventional suite and a pre-procedure 'time-out' was performed. The patient was placed on the fluoroscopy table in the supine position. The left upper extremity was prepped and draped in the usual sterile fashion. Maximum sterile barrier precautions were maintained throughout the entire procedure. Preliminary ultrasound images of the left upper extremity vasculature demonstrate patency of the left basilic vein. Following subcutaneous infiltration of 1% lidocaine for local analgesia, under ultrasound guidance, a 21-gauge needle was advanced into the left basilic vein with real-time visualization of needle entry. The ultrasound images were permanently recorded and submitted to the PACS. A 0.018 guidewire was advanced centrally to the cavoatrial junction. A 4.5 [place] peel-away sheath was advanced over the guidewire. After obtaining length measurement, a 4 [place] single-lumen PICC was placed with the tip of the catheter at the cavoatrial junction. The total length of the catheter is 48 cm. The hub of the PICC was secured to the skin using a sterile adhesive bandage. The patient tolerated the procedure well without immediate post-procedure complications and was transferred back to the floor in stable condition. IMPRESSION: SUCCESSFUL INSERTION OF LEFT UPPER EXTREMITY PICC. PICC OK TO USE.
--- NOTE | 2017-12-03 15:11 | CP.PCM.PN ---
Subjective - Date & Time of Evaluation Date of Evaluation: 12/03/17 Time of Evaluation: 07:35 - Subjective Subjective: Medicine progress note ( Dr. Pierce's service) Patient was seen and examined at bedside. Patient reports improving symptoms and mild increase range of motion in his right hand. Patient is s/p Incision and drainage of Right hand abscess, POD # 3 due to right hand abscess/cellulitis , post cat bite. Patient denies any symptoms of fever, chills, nausea, vomiting , chest pain, palpitation, SOB. Patient is aware that he will have further washout and debridement tomorrow, 12/04/17. Objective - Vital Signs/Intake and Output Vital Signs (last 24 hours): Temp Pulse Resp BP Pulse Ox 98.4 F 115 H 20 124/84 95 12/02/17 23:45 12/02/17 23:45 12/02/17 23:45 12/02/17 23:45 12/02/17 23:45 Intake and Output: 12/03/17 12/03/17 06:59 18:59 Intake Total 470 Balance 470 - Medications Medications: Current Medications Dextrose (Dextrose 50% Inj) 0 ml IV STAT PRN; Protocol PRN Reason: Hypoglycemia Protocol Dextrose (Glutose 15) 15 gm PO ONCE PRN; Protocol PRN Reason: Hypoglycemia Protocol Docusate Sodium (Colace) 100 mg PO BID [facility] Last Admin: 12/03/17 11:11 Dose: 100 mg Glucagon (Glucagen Diagnostic Kit) 1 mg IM STAT PRN; Protocol PRN Reason: Hypoglycemia Protocol Heparin Sodium (Porcine) (Heparin) 5,000 units SC Q12 [facility] Last Admin: 12/03/17 11:11 Dose: 5,000 units Ciprofloxacin (Cipro 400mg/200ml Dsw) 400 mg in 200 mls @ 133 mls/hr IVPB Q12H [facility] PRN Reason: Protocol Last Admin: 12/03/17 14:57 Dose: 133 mls/hr Dextrose (Dextrose 5% In Water 1000 Ml) 1,000 mls @ 0 mls/hr IV .Q0M PRN; Protocol; Per Protocol PRN Reason: Hypoglycemia Protocol Piperacillin Sod/Tazobactam Sod (Zosyn 3.375 Gm Iv Premix) 3.375 gm in 50 mls @ 100 mls/hr IVPB Q6H [facility] PRN Reason: Protocol Last Admin: 12/03/17 11:12 Dose: 100 mls/hr Insulin Human Regular (Novolin R) 0 unit SC ACHS [facility] PRN Reason: Protocol Last Admin: 12/03/17 14:24 Dose: Not Given Ketorolac Tromethamine (Toradol) 30 mg IVP Q6H PRN PRN Reason: Pain, severe (8-10) Last Admin: 12/03/17 07:09 Dose: 30 mg Ketorolac Tromethamine (Toradol) 15 mg IVP Q6H PRN PRN Reason: Pain, moderate (4-7) Last Admin: 12/03/17 00:22 Dose: 15 mg Lisinopril (Zestril) 2.5 mg PO DAILY [facility] Last Admin: 12/03/17 11:11 Dose: 2.5 mg Pantoprazole Sodium (Protonix Ec Tab) 40 mg PO DAILY [facility] Last Admin: 12/03/17 11:11 Dose: 40 mg Rosuvastatin Calcium (Crestor) 5 mg PO HS [facility] Last Admin: 12/02/17 21:20 Dose: 5 mg Saccharomyces Boulardii (Florastor) 250 mg PO BID [facility] Last Admin: 12/03/17 11:11 Dose: 250 mg - Labs Labs: 12/03/17 06:57 12/03/17 06:57 PT 14.7 SECONDS (9.7-12.2) H 11/30/17 12:02 INR 1.3 11/30/17 12:02 APTT 38 SECONDS (21-34) H 11/30/17 12:02 - Constitutional Appears: Well, No Acute Distress - Head Exam Head Exam: ATRAUMATIC, NORMAL INSPECTION - Eye Exam Eye Exam: EOMI, Normal appearance - ENT Exam ENT Exam: Mucous Membranes Moist - Neck Exam Neck Exam: Full ROM - Respiratory Exam Respiratory Exam: Clear to Ausculation Bilateral, NORMAL BREATHING PATTERN. absent: Prolonged Expiratory Phase, Rhonchi, Wheezes, Respiratory Distress - Cardiovascular Exam Cardiovascular Exam: REGULAR RHYTHM, +S1, +S2. absent: Murmur - GI/Abdominal Exam GI & Abdominal Exam: Soft, Normal Bowel Sounds. absent: Distended, Firm, Guarding, Rigid, Tenderness, Hernia, Hyperactive Bowel Sounds - Extremities Exam Additional comments: s/p Incision and drainage of Right hand abscess, POD # 3 due to right hand abscess/cellulitis, post cat bite, dressing is clean, dry and intact - Neurological Exam Neurological Exam: Alert, Awake, Oriented x3 - Psychiatric Exam Psychiatric exam: Normal Affect, Normal Mood - Skin Skin Exam: Normal Color Assessment and Plan (1) Abscess of hand, right Assessment & Plan: Secondary to cat bite Consultation: Hand Surgeon, Dr. 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 hand. Marked soft tissue swelling raises concern for early compartment syndrome. First digit osteo possible. Medication/Management: Meropenem 500mg IV Q8H (Started 12/03/17) Cipro 400mg IV Q12H (Started 12/01/17, discontinued 12/03/17) Clindamycin 600mg IV Q8H (Started 12/01/17, discontinued 12/03/17) Zosyn 3.375gm IV Q6H (Started 12/01/17, discontinued 12/03/17) Florastor 250mg PO BID Toradol 15mg IV Q6H PRN Toradol 30mg IV Q6H PRN PICC line insertion 12/03/17 for long-term antibiotics use Status: Acute (2) Diabetes mellitus Assessment & Plan: HgbA1C (12/01/17) ISS: Low dose Lisinoprl 2.5mg PO daily Hypoglycemia protocol Accuchecks Status: Chronic (3) Low HDL (under 40) Assessment & Plan: HDL (12/01/17): 21 Crestor 5mg PO daily Status: Acute (4) Constipation Assessment & Plan: Colace 100mg PO BID Status: Acute (5) Prophylactic measure Assessment & Plan: DVT: Heparin 5,000 units Q12H GI: Protonix 40mg PO daily All plans and management discussed with Dr. Pierce Status: Acute
[2017-12-03] MEDS: Meropenem 500 MG in Sodium Chloride 0.9% 100 ML IVPB SCH (20:52)
[2017-12-04] MEDS: Meropenem 500 MG in Sodium Chloride 0.9% 100 ML IVPB SCH ×3 (03:00→17:22)
[2017-12-04 06:12] LABS: BASO # 0.1 K/uL (0.0-0.2); BASO % 0.7 % (0.0-2.0); EOS # 0.2 K/uL (0.0-0.7); EOS % 1.8 % (0.0-4.0); HEMOGLOBIN 11.9 g/dL (12.0-18.0); LYMPH # 1.5 K/uL (1.0-4.3); LYMPH % 17.3 % (20.0-40.0); MEAN CELL VOLUME 82.6 fL (80.0-94.0); MEAN CORPUSCULAR HEMOGLOBIN 27.8 pg (27.0-31.0); MEAN CORPUSCULAR HGB CONC 33.7 g/dL (33.0-37.0); MEAN PLATELET VOLUME 9.1 fL (7.2-11.7); MONO # 0.9 K/uL (0.0-0.8); MONO % 10.7 % (0.0-10.0); NEUT # 6.1 K/uL (1.8-7.0); NEUT % 69.5 % (50.0-75.0); RBC 4.26 Mil/uL (4.40-5.90); RED CELL DISTRIBUTION WIDTH 13.2 % (11.5-14.5); WHITE BLOOD COUNT 8.7 K/uL (4.8-10.8)
[2017-12-04 06:39] LABS: ALB/GLOB RATIO 0.7 (1.0-2.1); ALBUMIN 3.1 g/dL (3.5-5.0); ALT/SGPT 8 U/L (21-72); AST/SGOT 50 U/L (17-59); BLOOD UREA NITROGEN 15 mg/dL (9-20); CALCIUM 8.6 mg/dl (8.6-10.4); GFR AFRICAN-AMERICAN > 60; GFR NON-AFRICAN AMERICAN > 60
[2017-12-04] MEDS ORDERED: Lactated Ringer's 1,000 ML IV ONE (08:00)
[2017-12-04] MEDS ORDERED: Propofol 10 mg/ml Inj (20 ML) ONE (08:00)
[2017-12-04] MEDS ORDERED: Midazolam 2 MG/2 ML VIAL ONE (08:00)
[2017-12-04] MEDS ORDERED: Bupivacaine 0.5% Inj(30mL) IJ ONE (08:03)
[2017-12-04] MEDS ORDERED: Lidocaine 2% w Epi 1:100,000 Inj IJ ONE (08:03)
[2017-12-04] MEDS: (Novolin R) Insulin Human Regular 100 units/ml vial SC SCH ×4 (08:20→21:44)
--- NOTE | 2017-12-04 08:31 | PCM.SURG1 ---
Surgeon's Initial Post Op Note - Surgeon's Notes Surgeon: Dr. Garcia Customer Sales Advisor: Marina Valdivia, PGY-1, Pavel Del Rio, OMS-3 Pre-Operative Diagnosis: Right hand abscess s/p I&D Operative Findings: See op report Post-Operative Diagnosis: Right hand abscess s/p I&D Operation Performed: Exam under anesthesia with pulse irrigation Specimen/Specimens Removed: None Estimated Blood Loss: EBL {In ML}: 10 Date of Surgery/Procedure: 12/04/17 Time of Surgery/Procedure: 08:31
[2017-12-04] MEDS: Pantoprazole 40 mg EC Tab PO SCH (10:21)
[2017-12-04] MEDS: Saccharomyces Boulardi 250 mg Cap PO SCH ×2 (10:22→17:23)
--- NOTE | 2017-12-04 11:15 | CP.PCM.PN ---
Subjective - Date & Time of Evaluation Date of Evaluation: 12/04/17 Time of Evaluation: 08:00 - Subjective Subjective: afeb fingers warm swelling slowly improving Objective - Vital Signs/Intake and Output Vital Signs (last 24 hours): Temp Pulse Resp BP Pulse Ox 98.3 F 93 H 20 147/90 96 12/04/17 09:30 12/04/17 09:30 12/04/17 09:30 12/04/17 09:30 12/04/17 09:30 Intake and Output: 12/04/17 12/04/17 06:59 18:59 Intake Total 620 Balance 620 - Medications Medications: Current Medications Dextrose (Dextrose 50% Inj) 0 ml IV STAT PRN; Protocol PRN Reason: Hypoglycemia Protocol Dextrose (Glutose 15) 15 gm PO ONCE PRN; Protocol PRN Reason: Hypoglycemia Protocol Docusate Sodium (Colace) 100 mg PO BID [facility] Last Admin: 12/04/17 10:21 Dose: 100 mg Glucagon (Glucagen Diagnostic Kit) 1 mg IM STAT PRN; Protocol PRN Reason: Hypoglycemia Protocol Heparin Sodium (Porcine) (Heparin) 5,000 units SC Q12 [facility] Last Admin: 12/03/17 21:02 Dose: 5,000 units Dextrose (Dextrose 5% In Water 1000 Ml) 1,000 mls @ 0 mls/hr IV .Q0M PRN; Protocol; Per Protocol PRN Reason: Hypoglycemia Protocol Meropenem 500 mg/ Sodium (Chloride) 100 mls @ 200 mls/hr IVPB Q8H [facility] Last Admin: 12/04/17 10:21 Dose: 200 mls/hr Insulin Human Regular (Novolin R) 0 unit SC ACHS [facility] PRN Reason: Protocol Last Admin: 12/04/17 08:20 Dose: Not Given Ketorolac Tromethamine (Toradol) 30 mg IVP Q6H PRN PRN Reason: Pain, severe (8-10) Last Admin: 12/04/17 10:20 Dose: 30 mg Ketorolac Tromethamine (Toradol) 15 mg IVP Q6H PRN PRN Reason: Pain, moderate (4-7) Last Admin: 12/03/17 20:58 Dose: 15 mg Lisinopril (Zestril) 2.5 mg PO DAILY [facility] Last Admin: 12/04/17 10:21 Dose: 2.5 mg Pantoprazole Sodium (Protonix Ec Tab) 40 mg PO DAILY [facility] Last Admin: 12/04/17 10:21 Dose: 40 mg Rosuvastatin Calcium (Crestor) 5 mg PO HS [facility] Last Admin: 12/03/17 21:02 Dose: 5 mg Saccharomyces Boulardii (Florastor) 250 mg PO BID [facility] Last Admin: 12/04/17 10:22 Dose: 250 mg - Labs Labs: 12/04/17 06:04 12/04/17 06:04 PT 14.7 SECONDS (9.7-12.2) H 11/30/17 12:02 INR 1.3 11/30/17 12:02 APTT 38 SECONDS (21-34) H 11/30/17 12:02 - Constitutional Appears: Non-toxic, Chronically Ill - Head Exam Head Exam: NORMOCEPHALIC - Eye Exam Eye Exam: PERRL - ENT Exam ENT Exam: Mucous Membranes Dry - Neck Exam Neck Exam: absent: Lymphadenopathy - Respiratory Exam Respiratory Exam: Decreased Breath Sounds - Cardiovascular Exam Cardiovascular Exam: REGULAR RHYTHM - GI/Abdominal Exam GI & Abdominal Exam: Distended - Rectal Exam Rectal Exam: Deferred - Exam Exam: NORMAL INSPECTION Assessment and Plan (1) Cat bite involving extremity Status: Acute (2) Sepsis affecting skin Status: Acute (3) Cellulitis and abscess of hand Status: Acute (4) Necrotizing fasciitis due to microorganism Status: Acute (5) Osteomyelitis Status: Acute
--- NOTE | 2017-12-04 15:15 | CP.PCM.PN ---
Subjective - Date & Time of Evaluation Date of Evaluation: 12/04/17 Time of Evaluation: 07:30 - Subjective Subjective: Medicine progress note ( Dr. Pierce's service) Patient was seen and examined at bedside. Patient reports improving symptoms with much improved increase range of motion in his right hand. Patient is s/p Incision and drainage of Right hand abscess, POD # 4 and Second irrigation POD# 0 due to right hand abscess/cellulitis, post cat bite. Patient denies any symptoms of fever, chills, nausea, vomiting, chest pain, palpitation, SOB. Patient had further irrigation today. Objective - Vital Signs/Intake and Output Vital Signs (last 24 hours): Temp Pulse Resp BP Pulse Ox 97.8 F 87 18 128/82 96 12/04/17 10:15 12/04/17 10:15 12/04/17 10:15 12/04/17 10:15 12/04/17 09:30 Intake and Output: 12/04/17 12/04/17 06:59 18:59 Intake Total 620 720 Balance 620 720 - Medications Medications: Current Medications Dextrose (Dextrose 50% Inj) 0 ml IV STAT PRN; Protocol PRN Reason: Hypoglycemia Protocol Dextrose (Glutose 15) 15 gm PO ONCE PRN; Protocol PRN Reason: Hypoglycemia Protocol Docusate Sodium (Colace) 100 mg PO BID [facility] Last Admin: 12/04/17 10:21 Dose: 100 mg Glucagon (Glucagen Diagnostic Kit) 1 mg IM STAT PRN; Protocol PRN Reason: Hypoglycemia Protocol Heparin Sodium (Porcine) (Heparin) 5,000 units SC Q12 [facility] Last Admin: 12/03/17 21:02 Dose: 5,000 units Dextrose (Dextrose 5% In Water 1000 Ml) 1,000 mls @ 0 mls/hr IV .Q0M PRN; Protocol; Per Protocol PRN Reason: Hypoglycemia Protocol Meropenem 500 mg/ Sodium (Chloride) 100 mls @ 200 mls/hr IVPB Q8H [facility] Last Admin: 12/04/17 10:21 Dose: 200 mls/hr Insulin Human Regular (Novolin R) 0 unit SC ACHS [facility] PRN Reason: Protocol Last Admin: 12/04/17 12:08 Dose: 1 unit Ketorolac Tromethamine (Toradol) 30 mg IVP Q6H PRN PRN Reason: Pain, severe (8-10) Last Admin: 12/04/17 10:20 Dose: 30 mg Ketorolac Tromethamine (Toradol) 15 mg IVP Q6H PRN PRN Reason: Pain, moderate (4-7) Last Admin: 12/03/17 20:58 Dose: 15 mg Lisinopril (Zestril) 2.5 mg PO DAILY [facility] Last Admin: 12/04/17 10:21 Dose: 2.5 mg Pantoprazole Sodium (Protonix Ec Tab) 40 mg PO DAILY [facility] Last Admin: 12/04/17 10:21 Dose: 40 mg Rosuvastatin Calcium (Crestor) 5 mg PO HS [facility] Last Admin: 12/03/17 21:02 Dose: 5 mg Saccharomyces Boulardii (Florastor) 250 mg PO BID [facility] Last Admin: 12/04/17 10:22 Dose: 250 mg - Labs Labs: 12/04/17 06:04 12/04/17 06:04 PT 14.7 SECONDS (9.7-12.2) H 11/30/17 12:02 INR 1.3 11/30/17 12:02 APTT 38 SECONDS (21-34) H 11/30/17 12:02 - Constitutional Appears: Well, No Acute Distress - Head Exam Head Exam: ATRAUMATIC, NORMAL INSPECTION - Eye Exam Eye Exam: EOMI - ENT Exam ENT Exam: Mucous Membranes Moist - Respiratory Exam Respiratory Exam: Clear to Ausculation Bilateral, NORMAL BREATHING PATTERN. absent: Prolonged Expiratory Phase, Rhonchi, Wheezes, Respiratory Distress - Cardiovascular Exam Cardiovascular Exam: REGULAR RHYTHM, +S1, +S2. absent: Murmur - GI/Abdominal Exam GI & Abdominal Exam: Soft, Normal Bowel Sounds. absent: Firm, Guarding, Rigid, Tenderness - Extremities Exam Additional comments: S/p Incision and drainage of Right hand abscess, POD # 4 due to right hand abscess/cellulitis, post cat bite, dressing is clean, dry and intact S/p irrigation POD# 0 - Neurological Exam Neurological Exam: Alert, Awake, Oriented x3 - Psychiatric Exam Psychiatric exam: Normal Affect, Normal Mood - Skin Skin Exam: Normal Color Assessment and Plan (1) Abscess of hand, right Assessment & Plan: Secondary to cat bite Consultation: Hand Surgeon, Dr. 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 hand. Marked soft tissue swelling raises concern for early compartment syndrome. First digit osteo possible. Medication/Management: Meropenem 500mg IV Q8H (Started 12/03/17) Cipro 400mg IV Q12H (Started 12/01/17, discontinued 12/03/17) Clindamycin 600mg IV Q8H (Started 12/01/17, discontinued 12/03/17) Zosyn 3.375gm IV Q6H (Started 12/01/17, discontinued 12/03/17) Florastor 250mg PO BID Toradol 15mg IV Q6H PRN Toradol 30mg IV Q6H PRN PICC line insertion 12/03/17 for long-term antibiotics use Status: Acute (2) Diabetes mellitus Assessment & Plan: HgbA1C (12/01/17) ISS: Low dose Lisinoprl 2.5mg PO daily Hypoglycemia protocol Accuchecks Status: Chronic (3) Low HDL (under 40) Assessment & Plan: HDL (12/01/17): 21 Crestor 2.5mg PO HS Niacin 250mg PO HS Status: Acute (4) Constipation Assessment & Plan: Colace 100mg PO BID Status: Acute (5) Prophylactic measure Assessment & Plan: DVT: Heparin 5,000 units Q12H GI: Protonix 40mg PO daily Disposition: Plans for discharge tomorrow All plans and management discussed with Dr. Pierce Status: Acute
[2017-12-04 16:02] VITALS: RESP 20; TEMP 98
[2017-12-04] MEDS ORDERED: Rosuvastatin Calcium 2.5 mg Tab PO SCH (22:00)
--- NOTE | 2017-12-04 22:55 | CARD ---
APPROVED REPORT EKG Measurement Heart [id number] <Conclusion> Sinus tachycardia Left axis deviation Abnormal ECG
[2017-12-05] MEDS: Meropenem 500 MG in Sodium Chloride 0.9% 100 ML IVPB SCH ×2 (01:13→09:31)
[2017-12-05 06:31] LABS: BASO # 0.1 K/uL (0.0-0.2); BASO % 0.8 % (0.0-2.0); EOS # 0.2 K/uL (0.0-0.7); EOS % 1.7 % (0.0-4.0); HEMOGLOBIN 12.4 g/dL (12.0-18.0); LYMPH % 20.2 % (20.0-40.0); MEAN CELL VOLUME 82.6 fL (80.0-94.0); MEAN CORPUSCULAR HGB CONC 33.9 g/dL (33.0-37.0); MEAN PLATELET VOLUME 9.2 fL (7.2-11.7); MONO # 0.8 K/uL (0.0-0.8); MONO % 8.1 % (0.0-10.0); NEUT # 6.9 K/uL (1.8-7.0); NEUT % 69.2 % (50.0-75.0); RBC 4.42 Mil/uL (4.40-5.90); RED CELL DISTRIBUTION WIDTH 13.4 % (11.5-14.5)
[2017-12-05 06:58] LABS: ALB/GLOB RATIO 0.7 (1.0-2.1); ALBUMIN 3.4 g/dL (3.5-5.0); ALT/SGPT 10 U/L (21-72); AST/SGOT 45 U/L (17-59); BLOOD UREA NITROGEN 13 mg/dL (9-20); GFR AFRICAN-AMERICAN > 60; GFR NON-AFRICAN AMERICAN > 60
[2017-12-05] MEDS: (Novolin R) Insulin Human Regular 100 units/ml vial SC SCH ×2 (07:49→12:43)
[2017-12-05] MEDS: Saccharomyces Boulardi 250 mg Cap PO SCH (09:30)
[2017-12-05] MEDS: Pantoprazole 40 mg EC Tab PO SCH (09:31)
[2017-12-05 09:37] VITALS: BP 130/78
--- NOTE | 2017-12-05 13:18 | CP.PCM.PN ---
Subjective - Date & Time of Evaluation Date of Evaluation: 12/05/17 Time of Evaluation: 13:13 - Subjective Subjective: PGY-1 surgery progress note for Dr Garcia. No acute events noted overnight. Patient stated his pain was better today. Swelling remained. Packing was changed for new packing and the hand was re- wrapped. Denied fever/chills. Objective - Vital Signs/Intake and Output Vital Signs (last 24 hours): Temp Pulse Resp BP Pulse Ox 98.0 F 96 H 20 130/78 97 12/04/17 23:45 12/05/17 09:36 12/04/17 23:45 12/05/17 09:36 12/04/17 23:45 Intake and Output: 12/05/17 12/05/17 06:59 18:59 Intake Total 620 Balance 620 - Medications Medications: Current Medications Dextrose (Dextrose 50% Inj) 0 ml IV STAT PRN; Protocol PRN Reason: Hypoglycemia Protocol Dextrose (Glutose 15) 15 gm PO ONCE PRN; Protocol PRN Reason: Hypoglycemia Protocol Docusate Sodium (Colace) 100 mg PO BID [facility] Last Admin: 12/05/17 09:30 Dose: 100 mg Glucagon (Glucagen Diagnostic Kit) 1 mg IM STAT PRN; Protocol PRN Reason: Hypoglycemia Protocol Heparin Sodium (Porcine) (Heparin) 5,000 units SC Q12 [facility] Last Admin: 12/05/17 10:27 Dose: 5,000 units Dextrose (Dextrose 5% In Water 1000 Ml) 1,000 mls @ 0 mls/hr IV .Q0M PRN; Protocol; Per Protocol PRN Reason: Hypoglycemia Protocol Meropenem 500 mg/ Sodium (Chloride) 100 mls @ 200 mls/hr IVPB Q8H [facility] Last Admin: 12/05/17 09:31 Dose: 200 mls/hr Insulin Human Regular (Novolin R) 0 unit SC ACHS [facility] PRN Reason: Protocol Last Admin: 12/05/17 12:43 Dose: 1 unit Ketorolac Tromethamine (Toradol) 30 mg IVP Q6H PRN PRN Reason: Pain, severe (8-10) Last Admin: 12/05/17 12:36 Dose: 30 mg Ketorolac Tromethamine (Toradol) 15 mg IVP Q6H PRN PRN Reason: Pain, moderate (4-7) Last Admin: 12/05/17 07:48 Dose: 15 mg Lisinopril (Zestril) 2.5 mg PO DAILY [facility] Last Admin: 12/05/17 09:31 Dose: 2.5 mg Niacin (Niacin) 250 mg PO HS [facility] Last Admin: 12/04/17 21:51 Dose: 250 mg Pantoprazole Sodium (Protonix Ec Tab) 40 mg PO DAILY [facility] Last Admin: 12/05/17 09:31 Dose: 40 mg Rosuvastatin Calcium (Crestor) 2.5 mg PO HS [facility] Last Admin: 12/04/17 21:52 Dose: 2.5 mg Saccharomyces Boulardii (Florastor) 250 mg PO BID [facility] Last Admin: 12/05/17 09:30 Dose: 250 mg - Labs Labs: 12/05/17 06:25 12/05/17 06:25 PT 14.7 SECONDS (9.7-12.2) H 11/30/17 12:02 INR 1.3 11/30/17 12:02 APTT 38 SECONDS (21-34) H 11/30/17 12:02 - Additional Findings Additional findings: - Constitutional Appears: Well, No Acute Distress - Eye Exam Eye Exam: Normal appearance - ENT Exam ENT Exam: Mucous Membranes Moist - Respiratory Exam Respiratory Exam: NORMAL BREATHING PATTERN - Cardiovascular Exam Cardiovascular Exam: Tachycardia - GI/Abdominal Exam GI & Abdominal Exam: Soft - Extremities Exam Additional comments: R hand s/p I&D; reduced edema/erythema compared to days prior. Packing in place. Sensation & motor intact - Neurological Exam Neurological Exam: Alert, Awake, Oriented x3 - Skin Skin Exam: Dry, Warm Assessment and Plan - Assessment and Plan (Free Text) Assessment: 52M w/ cat bite with R hand abscess/cellulitis s/p I&D POD#5 and repeat I&D POD# 1 Plan: - s/p I&D POD#5 - repeat I&D POD#1 - clear for discharge from surgical standpoint - would advise patient follow-up with outpatient wound care - would advise patient to receive whirlpool therapy after discharge - d/w Dr. Garcia
[2017-12-05] MEDS ORDERED: Oxycodone/Acetaminophen 5/325 mg Tab PO PRN (13:31)
[2017-12-05 15:59] VITALS: PULSE 75
--- NOTE | 2017-12-05 18:00 | CP.PCM.PN ---
Subjective - Date & Time of Evaluation Date of Evaluation: 12/05/17 Time of Evaluation: 07:00 - Subjective Subjective: Medicine progress note ( Dr. Pierce's service) Patient was seen and examined at bedside. Patient reports improving symptoms with much improved increase range of motion in his right hand. Patient is s/p Incision and drainage of Right hand abscess and Second irrigation due to right hand abscess/cellulitis, post cat bite. Patient denies any symptoms of fever, chills, nausea, vomiting, chest pain, palpitation, SOB. Patient left AMA in order to feed his cats. Patient was made aware of the need for long-term IV abx and occupation therapy As per field nurse case manager, patient is unable to obtain visiting nursing or PT at home Objective - Vital Signs/Intake and Output Vital Signs (last 24 hours): Temp Pulse Resp BP Pulse Ox 98.0 F 75 20 130/78 97 12/04/17 23:45 12/05/17 15:56 12/04/17 23:45 12/05/17 09:36 12/04/17 23:45 Intake and Output: 12/05/17 12/05/17 06:59 18:59 Intake Total 620 900 Balance 620 900 - Labs Labs: 12/05/17 06:25 12/05/17 06:25 PT 14.7 SECONDS (9.7-12.2) H 11/30/17 12:02 INR 1.3 11/30/17 12:02 APTT 38 SECONDS (21-34) H 11/30/17 12:02 - Constitutional Appears: Well, No Acute Distress - Head Exam Head Exam: ATRAUMATIC - Eye Exam Eye Exam: EOMI, Normal appearance - ENT Exam ENT Exam: Mucous Membranes Moist - Respiratory Exam Respiratory Exam: Clear to Ausculation Bilateral, NORMAL BREATHING PATTERN. absent: Rhonchi, Wheezes, Respiratory Distress - Cardiovascular Exam Cardiovascular Exam: REGULAR RHYTHM, +S1, +S2 - GI/Abdominal Exam GI & Abdominal Exam: Soft, Normal Bowel Sounds. absent: Firm, Guarding, Rigid, Tenderness - Extremities Exam Extremities Exam: Normal Inspection. absent: Calf Tenderness, Pedal Edema Additional comments: s/p Incision and drainage of Right hand abscess and Second irrigation due to right hand abscess/cellulitis Dressing is dry, intact and dry - Neurological Exam Neurological Exam: Alert, Awake, Oriented x3 - Psychiatric Exam Psychiatric exam: Normal Affect, Normal Mood - Skin Skin Exam: Normal Color Assessment and Plan (1) Abscess of hand, right Assessment & Plan: Secondary to cat bite Consultation: Hand Surgeon, Dr. 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 hand. Marked soft tissue swelling raises concern for early compartment syndrome. First digit osteo possible. Medication/Management: Meropenem 500mg IV Q8H (Started 12/03/17) Cipro 400mg IV Q12H (Started 12/01/17, discontinued 12/03/17) Clindamycin 600mg IV Q8H (Started 12/01/17, discontinued 12/03/17) Zosyn 3.375gm IV Q6H (Started 12/01/17, discontinued 12/03/17) Florastor 250mg PO BID Toradol 15mg IV Q6H PRN Toradol 30mg IV Q6H PRN PICC line insertion 12/03/17 for long-term antibiotics use Status: Acute (2) Diabetes mellitus Assessment & Plan: HgbA1C (12/01/17) ISS: Low dose Lisinoprl 2.5mg PO daily Hypoglycemia protocol Accuchecks Status: Chronic (3) Low HDL (under 40) Assessment & Plan: HDL (12/01/17): 21 Crestor 2.5mg PO HS Niacin 250mg PO HS Status: Acute (4) Constipation Assessment & Plan: Colace 100mg PO BID Status: Acute (5) Prophylactic measure Assessment & Plan: DVT: Heparin 5,000 units Q12H GI: Protonix 40mg PO daily Disposition: There were plans for discharge today, however, patient was not cleared for discharge due to lack of insurance for home visiting nurse, home physical/Occupational therapy. Patient left AMA after he was made aware of unsafe discharge and need for long- term for antibiotics All plans and management discussed with Dr. Pierce Status: Acute
--- NOTE | 2017-12-05 18:17 | CP.PCM.DIS ---
Provider - Provider Date of Admission: 11/30/17 12:51 Attending physician: Kevin Pierce MD Time Spent in preparation of Discharge (in minutes): 35 Diagnosis - Discharge Diagnosis (1) Abscess of hand, right Status: Acute (2) Diabetes mellitus Status: Chronic Priority: High (3) Low HDL (under 40) Status: Acute (4) Constipation Status: Acute (5) Prophylactic measure Status: Acute Hospital Course - Lab Results Lab Results: Micro Results 11/30/17 12:30 Blood Blood Culture - Final NO GROWTH AFTER 5 DAYS 11/30/17 12:30 Blood Gram Stain - Final TEST NOT PERFORMED 11/30/17 12:00 Blood Blood Culture - Final NO GROWTH AFTER 5 DAYS 11/30/17 20:38 Abscess - Abscess Gram Stain - Final 11/30/17 20:38 Abscess - Abscess Wound Culture - Final Pasteurella Multocida 12/02/17 06:15 Naris MRSA Culture - Final MRSA NOT DETECTED 11/30/17 20:30 Abscess - Abscess Anaerobic Culture - Final NO ANAEROBES ISOLATED. 11/30/17 15:39 Naris MRSA Culture (Admit) - Final MRSA NOT DETECTED Most Recent Lab Values WBC 10.0 K/uL (4.8-10.8) 12/05/17 06:25 RBC 4.42 Mil/uL (4.40-5.90) 12/05/17 06:25 Hgb 12.4 g/dL (12.0-18.0) 12/05/17 06:25 Hct 36.5 % (35.0-51.0) 12/05/17 06:25 MCV 82.6 fL (80.0-94.0) 12/05/17 06:25 MCH 28.0 pg (27.0-31.0) 12/05/17 06:25 MCHC 33.9 g/dL (33.0-37.0) 12/05/17 06:25 RDW 13.4 % (11.5-14.5) 12/05/17 06:25 Plt Count 505 K/uL (130-400) H 12/05/17 06:25 MPV 9.2 fL (7.2-11.7) 12/05/17 06:25 Neut % (Auto) 69.2 % (50.0-75.0) 12/05/17 06:25 Lymph % (Auto) 20.2 % (20.0-40.0) 12/05/17 06:25 Steele % (Auto) 8.1 % (0.0-10.0) 12/05/17 06:25 Eos % (Auto) 1.7 % (0.0-4.0) 12/05/17 06:25 Baso % (Auto) 0.8 % (0.0-2.0) 12/05/17 06:25 Neut # (Auto) 6.9 K/uL (1.8-7.0) 12/05/17 06:25 Lymph # (Auto) 2.0 K/uL (1.0-4.3) 12/05/17 06:25 Steele # (Auto) 0.8 K/uL (0.0-0.8) 12/05/17 06:25 Eos # (Auto) 0.2 K/uL (0.0-0.7) 12/05/17 06:25 Baso # (Auto) 0.1 K/uL (0.0-0.2) 12/05/17 06:25 Neutrophils % (Manual) 85 % (50-75) H 12/01/17 10:15 Lymphocytes % (Manual) 8 % (20-40) L 12/01/17 10:15 Monocytes % (Manual) 7 % (0-10) 12/01/17 10:15 Toxic Granulation Present 12/01/17 10:15 Platelet Estimate Normal (NORMAL) 12/01/17 10:15 Large Platelets Present 12/01/17 10:15 Giant Platelets Present 12/01/17 10:15 Polychromasia Slight 12/01/17 10:15 Anisocytosis (manual) Slight 12/01/17 10:15 Microcytosis (manual) Slight 12/01/17 10:15 ESR 112 mm/hr (0-15) H 11/30/17 12:02 PT 14.7 SECONDS (9.7-12.2) H 11/30/17 12:02 INR 1.3 11/30/17 12:02 APTT 38 SECONDS (21-34) H 11/30/17 12:02 pO2 50 mm/Hg (30-55) 11/30/17 12:04 VBG pH 7.54 (7.32-7.43) H 11/30/17 12:04 VBG pCO2 31 mmHg (40-60) L 11/30/17 12:04 VBG HCO3 28.2 mmol/L 11/30/17 12:04 VBG Total CO2 27.5 mmol/L (22-28) 11/30/17 12:04 VBG O2 Sat (Calc) 90.6 % (40-65) H 11/30/17 12:04 VBG Base Excess 4.5 mmol/L (0.0-2.0) H 11/30/17 12:04 VBG Potassium 3.6 mmol/L (3.6-5.2) 11/30/17 12:04 Sodium 133.0 mmol/l (132-148) 11/30/17 12:04 Chloride 100.0 mmol/L (98-107) 11/30/17 12:04 Glucose 213 mg/dl (75-110) H 11/30/17 12:04 Lactate 1.3 mmol/L (0.7-2.1) 11/30/17 12:04 Sodium 137 mmol/L (132-148) 12/05/17 06:25 Potassium 4.3 mmol/L (3.6-5.2) 12/05/17 06:25 Chloride 101 mmol/L (98-107) 12/05/17 06:25 Carbon Dioxide 25 mmol/L (22-30) 12/05/17 06:25 Anion Gap 15 (10-20) 12/05/17 06:25 BUN 13 mg/dL (9-20) 12/05/17 06:25 Creatinine 1.0 mg/dL (0.8-1.5) 12/05/17 06:25 Est GFR ( Amer) > 60 12/05/17 06:25 Est GFR (Non-Af Amer) > 60 12/05/17 06:25 POC Glucose (mg/dL) 161 mg/dL (65-110) H 12/05/17 16:23 Random Glucose 144 mg/dL (75-110) H 12/05/17 06:25 Hemoglobin A1c 10.0 % (4.2-6.5) H 12/01/17 10:15 Calcium 9.0 mg/dl (8.6-10.4) 12/05/17 06:25 Phosphorus 2.8 mg/dL (2.5-4.5) 12/05/17 06:25 Magnesium 2.1 mg/dL (1.6-2.3) 12/05/17 06:25 Total Bilirubin 0.6 mg/dL (0.2-1.3) 12/05/17 06:25 AST 45 U/L (17-59) 12/05/17 06:25 ALT 10 U/L (21-72) L D 12/05/17 06:25 Alkaline Phosphatase 83 U/L (38-126) 12/05/17 06:25 Total Protein 8.5 g/dL (6.3-8.3) H 12/05/17 06:25 Albumin 3.4 g/dL (3.5-5.0) L 12/05/17 06:25 Globulin 5.0 gm/dL (2.2-3.9) H 12/05/17 06:25 Albumin/Globulin Ratio 0.7 (1.0-2.1) L 12/05/17 06:25 Triglycerides 96 mg/dL (0-149) 12/01/17 10:15 Cholesterol 116 mg/dL (0-199) 12/01/17 10:15 LDL Cholesterol Direct 67 mg/dL (0-129) 12/01/17 10:15 HDL Cholesterol 21 mg/dL (30-70) L 12/01/17 10:15 Free T4 2.35 ng/dL (0.78-2.19) H 12/01/17 10:15 TSH 3rd Generation 1.73 mIU/L (0.46-4.68) 12/01/17 10:15 Venous Blood Potassium 3.6 mmol/L (3.6-5.2) 11/30/17 12:04 Blood Type O POSITIVE 11/30/17 12:26 Antibody Screen Negative 11/30/17 12:26 - Hospital Course Hospital Course: HPI (As per admission): Jaquan is a 52M with a PMH of DM comes to ED after he was bit by a cat 2 weeks ago. He stated he did had pain at that time but no swelling. Slowly progressive over 2 weeks time the swelling got to the point where he started to have trouble using his hand. It came to the point when he was unable to move his fingers. During the course of the two weeks he noticed purulent drainage from the thumb. He was taking Advil at home but that was not relieving the pain. He denies any fever or chills. No nausea or vomiting. Hospital course: Patient was admitted for right hand cellulitis and abscess secondary to cat bite. Hand surgeon, Dr. Garcia was consulted due to noted possible Compartment syndrome on MRI. Patient was taken to the OR twice over the course of admission , for incision and drainage and Irrigation, respectively. ID, Alma Warren was consulted, who recommended long-term antibiotics. Patient tolerated procedure very well with no acute issues. manager quality improvement and socially responsible investment adviser were unable to set up home visiting nurse, home physical therapy or possible JAVON due to lack of insurance; patient was made aware of this. Therefore, patient will have to stay couple more days inpatient. However, patient left AMA because he had to feed his cats. Pertinent imaging/Labs: Would culture: Pasteurella Multocida Hand Xray - no fracture or dislocation MRI: Extensive cellulitis/myositis of R. hand. Marked soft tissue swelling raises concern for early compartment syndrome. First digit osteo possible. Discharge Exam - Head Exam Head Exam: ATRAUMATIC - Eye Exam Eye Exam: EOMI, Periorbital tenderness - Respiratory Exam Respiratory Exam: Clear to PA & Lateral, NORMAL BREATHING PATTERN, UNREMARKABLE. absent: Prolonged Expiratory Phase, Wheezes, Respiratory Distress , Stridor - Cardiovascular Exam Cardiovascular Exam: REGULAR RHYTHM, +S1, +S2. absent: Systolic Murmur - GI/Abdominal Exam GI & Abdominal Exam: Normal Bowel Sounds, Soft. absent: Diminished Bowel Sounds , Distended, Firm, Guarding, Rebound, Tenderness - Extremities Exam Extremities exam: normal inspection - Neurological Exam Neurological exam: Normal Gait, Oriented x3 - Psychiatric Exam Psychiatric exam: Normal Affect - Skin Skin Exam: Normal Color Discharge Plan - Follow Up Plan Condition: GOOD Disposition: AGAINST MEDICAL ADVICE
--- NOTE | 2017-12-06 00:34 | OP ---
PROCEDURE DATE: 11/30/2017. PREOPERATIVE DIAGNOSIS: Abscess right hand in the thenar eminence. POSTOPERATIVE DIAGNOSIS: Abscess right hand in the thenar eminence. PROCEDURE: Incision and drainage right hand abscess. SURGEON: Adeel Garcia MD. CLINICAL NOTE: This 52-year-old diabetic male presents to the [facility] Emergency Room on 11/30/2017 after sustaining a cat bite to the right hand approximately 2 weeks prior. He had neglected to take care of this and now presented with severely swollen hand. On examination, the skin of the palm was swollen, tense and indurated with palpable fluctuance over the thenar eminence. There was limited range of motion of the thumb and the swelling extended to the dorsal surface of the thumb webspace. The nature of the problem was explained to the patient. The proposed surgery was outlined to the patient and informed consent outlining potential risk and complications related to the proposed surgical repair was obtained prior to scheduling the repair of these problems. No guarantee of outcome was provided to the patient. OPERATIVE PROCEDURE: The patient was brought to the operating room and after induction of general anesthesia, the hand was prepped and draped in the usual manner. A transverse incision was made on the thenar eminence directly over the point of maximal fluctuance. Immediately a large volume of foul smelling pus and samples were sent to the bacteriology for both aerobic and anaerobic cultures. There were multiple loculations in the abscess cavity, which were broken down digitally and it was cleared with the cavity extended to the dorsum of the webspace. The cavity was then irrigated with normal saline using a pulse nursing service director and when the fluid was returned clean, the wound was packed with iodoform gauze. This terminated the procedure and after reversal of general anesthesia, the patient was transferred to the recovery room. Adeel Garcia MD
--- NOTE | 2017-12-06 00:44 | OP ---
PROCEDURE DATE: 12/04/2017. PREOPERATIVE DIAGNOSIS: Abscess right hand in thenar eminence. POSTOPERATIVE DIAGNOSIS: Abscess right hand in thenar eminence. PROCEDURES: 1. Examination under anesthesia. 2. Debridement right hand abscess. SURGEON: Adeel Garcia MD. CLINICAL NOTE: This 52-year-old diabetic male who presents to the [facility] Emergency Room on 11/30/2017 after sustaining a cat bite to the right hand approximately 2 weeks prior. Please refer to the operative notes of 11/30/2017 for his clinical history. He had been taken immediately to the operating room for drainage of that abscess. So with that procedure, the systematic signs of an infection has subsided and he would now return to the operating room for examination under anesthesia. The nature of the problem was explained to the patient. The proposed surgery was outlined to the patient and informed consent outlining potential risk and complication related to the proposed surgical repair was obtained prior to scheduling the repair of these wounds. No guarantee of outcome was provided to the patient. OPERATIVE PROCEDURE: The patient was brought to the operating room and after induction of general anesthesia, the hand was prepped and draped in the usual manner. The swelling of the hand had diminished significantly, but the abscess cavity was still draining purulent material. More significantly the skin of the hand remains intact and viable. The abscess cavity was explored digitally and it was cleared, but there was still a significant amount of necrotic tissue in the cavity. The cavity was then irrigated with normal saline using pulse plant protection superintendent and when the fluid was returned clean, the wound was packed with iodoform gauze. This time, we did the procedure and after reversal of general anesthesia, the patient was transferred to recovery room. The plan was to sent the patient for daily [employer] therapy and allow the wound and abscess cavity to heal by secondary intention. Adeel Garcia MD
--- NOTE | 2017-12-07 06:52 | PQF DEBRID ---
To Dr. Jose Denis, Patient admitted with hand injury diagnosed with cellulitis. Procedure was done on 12/03 Please clarify if Debridement was EXCISIONAL ON NON EXCISIONAL. Please check the boxes below for documentation. Thank you, This form is a permanent part of the medical record Clarification of your documentation is requested to better reflect the severity of illness and intensity of treatment of your patient. Indicators present [] Documentation of wound care / debridement [] Technique: [] [] Instrument used:[] [] Nature of Tissue Removed:[] [] Appearance of Wound:[] [] Size of Wound: [] [] Depth of Debridement: [] [] Other: [] Location in the medical record that reflects the above clinical findings: [] Other Treatment Provided: [] PHYSICIAN'S RESPONSE Based on your medical judgment, can you further clarify the precise NATURE, DEPTH, EXTENT and / or METHODS of wound debridement utilized in this case: [] EXCISIONAL debridement use of a scalpel / blade to cut away tissue Depth (subcutaneous, fascia, muscle, soft tissue and bone) [] Size of Wound [] NON-EXCISIONAL debridement chemical, scrubbing, trimming with a scissor/ versajet [] Other, please indicate: [] [] If unable to determine, please check the box, sign and date. In responding to this query, please exercise your independent professional judgment. The fact that a question is asked does not imply that any particular answer is desired or expected. Thank you for your clarification on this documentation. If you have any questions please call:[ ] * Thank you, [ Radha Melendrez, [facility]] online publisher [employer]
[2017-12-08 16:40] VITALS: O2SAT 100
== END 2017-12-05 16:43 | disposition left against medical advice (07) | DRG 579 ==
LOC: C.ER 11:07 → C.9E 12:51 → C.9I 14:35 → C.6T 12-02 06:17
PROVIDERS: ADMIT Internal Medicine; ATTEND Internal Medicine
PROC: 0HBFXZZ Excision of Right Hand Skin, External Approach (ICD-10-PCS; 2017-11-30)
PROC: 0K9 Muscles, Drainage (ICD-10-PCS; principal; 2017-11-30 20:00)
PROC: 02HV33Z Insertion of Infusion Device into Superior Vena Cava, Percutaneous Approach (ICD-10-PCS; 2017-12-03)
DX: L03.113 Cellulitis of right upper limb (principal); M72.6 Necrotizing fasciitis; A41.9 Sepsis, unspecified organism; T79.A11A Traumatic compartment syndrome of right upper extremity, initial encounter; L02.511 Cutaneous abscess of right hand; M86.9 Osteomyelitis, unspecified; K59.00 Constipation, unspecified; S61.401A Unspecified open wound of right hand, initial encounter; W55.01XA Bitten by cat, initial encounter; E11.69 Type 2 diabetes mellitus with other specified complication; R50.82 Postprocedural fever

== ENCOUNTER 2017-12-20 16:16 | Inpatient (IN) | payer MEDICAID, OTHER ==
[2017-12-20 16:29] VITALS: RESP 20; BMI 27.1
--- NOTE | 2017-12-20 16:53 | C.PDOC ---
History Of Present Illness 52 y/o male presents to ED with complaints of worsening swelling and pain to right hand after cat bite few weeks ago. Patient was recently admitted to hospital for abscess to right hand secondary to cat bite and left AMA. Patient states he had to take care of his cats and things at home. He has now made arrangements and is able to stay in hosptial. Today patient states hand has become more swollen and painful associated with pus draining. Patient denies fever, chills, nausea, vomiting or chest pain. Time Seen by Provider: 12/20/17 16:40 Chief Complaint (Nursing): Abnormal Skin Integrity History Per: Patient History/Exam Limitations: no limitations Onset/Duration Of Symptoms: Days Current Symptoms Are (Timing): Still Present Past Medical History Reviewed: Historical Data, Nursing Documentation, Vital Signs Vital Signs: Last Vital Signs Temp 97.9 F 12/20/17 16:29 Pulse 134 H 12/20/17 16:29 Resp 20 12/20/17 16:29 BP 129/85 12/20/17 16:29 Pulse Ox 100 12/20/17 17:50 - Medical History PMH: Diabetes Surgical History: No Surg Hx - [facility] Procedures DRAINAGE OF RIGHT HAND MUSCLE, OPEN APPROACH, DIAGNOSTIC (11/30/17) EXCISION OF RIGHT HAND SKIN, EXTERNAL APPROACH (11/30/17) INSERTION OF INFUSION DEV INTO SUP VENA CAVA, PERC APPROACH (11/30/17) Family History: States: No Known Family Hx - Social History Hx Alcohol Use: No Hx Substance Use: No - Immunization History Hx Tetanus Toxoid Vaccination: No Hx Influenza Vaccination: No Hx Pneumococcal Vaccination: No Review Of Systems Constitutional: Negative for: Fever, Chills Respiratory: Negative for: Shortness of Breath Gastrointestinal: Negative for: Nausea, Vomiting Musculoskeletal: Positive for: Hand Pain Skin: Negative for: Rash Neurological: Negative for: Numbness Physical Exam - Physical Exam Appears: Non-toxic, No Acute Distress Skin: Warm, Dry, No Rash Head: Atraumatic, Normacephalic Eye(s): bilateral: Normal Inspection Oral Mucosa: Moist Neck: Normal ROM, Supple Cardiovascular: Rhythm Regular Respiratory: Normal Breath Sounds, No Rales, No Rhonchi, No Wheezing Gastrointestinal/Abdominal: Soft, No Tenderness Extremity: No Normal ROM (limited to thumb and 2nd digit secondary to swelling and pain), Capillary Refill (<2 seconds), Swelling (Moderate to right hand more on thumb side.), Other (Incisional wound palm proximal to right thumb with serous drainage ) Extremity: Left: Atraumatic, Normal Color And Temperature, Normal ROM Neurological/Psych: Oriented x3, Normal Speech, Normal Motor, Normal Sensation ED Course And Treatment - Laboratory Results Result Diagrams: 12/20/17 17:06 12/20/17 17:06 Lab Interpretation: No Acute Changes O2 Sat by Pulse Oximetry: 100 (RA) Pulse Ox Interpretation: Normal Medical Decision Making Medical Decision Making: Impression: Infected hand from cat bite Prior record reviewed: Patient was admitted to ER 11/30 for right hand cellulitis from cat bite, and over course of admission patient was taken to OR twice by hand surgeon Dr Garcia for I&D and irrigation. ID consult Dr Marquez. Patient signed out AMA on 12/05/17 Plan: * Blood work * UA * Hand xray Progress: Labs reviewed with no acute changes. Xray shows soft tissue swelling Contact Dr Damon for admission and spoke with diploma medical assistant who will come to bedside for eval and orders Disposition - Disposition Disposition: HOSPITALIZED Disposition Time: 17:55 Condition: STABLE - POA Present On Arrival: None - Clinical Impression Clinical Impression: Cat bite involving extremity, Cellulitis and abscess of hand - PA / CART PUSHER / Resident Statement MD/DO has reviewed & agrees with the documentation as recorded. - Scribe Statement The provider has reviewed the documentation as recorded by the Scribnena Batista All medical record entries made by the Joseibnena were at my direction and personally dictated by me. I have reviewed the chart and agree that the record accurately reflects my personal performance of the history, physical exam, medical decision making, and the department course for this patient. I have also personally directed, reviewed, and agree with the discharge instructions and disposition. Decision To Admit - Pt Status Changed To: Hospital Disposition Of: Inpatient - Admit Certification Admit to Inpatient:: After my assessment, the patient will require hospitalization for at least two midnights. This is because of the severity of symptoms shown, intensity of services needed, and/or the medical risk in this patient being treated as an outpatient. - InPatient: Physician Admission Certification: I certify that this patient requires 2 or more midnights of care for the following reason:: patient with ongoing infected cat bite to hand. patient needs nursing home antibiotics - . Bed Request Type: Regular Admitting Physician: Michael Damon Jr. Patient Diagnosis: Cat bite involving extremity, Cellulitis and abscess of hand
[2017-12-20 17:14] LABS: BASO # 0.2 K/uL (0.0-0.2); BASO % 2.6 % (0.0-2.0); EOS # 0.2 K/uL (0.0-0.7); EOS % 2.8 % (0.0-4.0); HEMOGLOBIN 14.4 g/dL (12.0-18.0); LYMPH # 1.1 K/uL (1.0-4.3); LYMPH % 13.4 % (20.0-40.0); MEAN CELL VOLUME 82.6 fL (80.0-94.0); MEAN CORPUSCULAR HGB CONC 33.9 g/dL (33.0-37.0); MEAN PLATELET VOLUME 9.5 fL (7.2-11.7); MONO # 0.8 K/uL (0.0-0.8); MONO % 9.9 % (0.0-10.0); NEUT # 5.7 K/uL (1.8-7.0); NEUT % 71.3 % (50.0-75.0); RBC 5.13 Mil/uL (4.40-5.90); RED CELL DISTRIBUTION WIDTH 14.2 % (11.5-14.5)
[2017-12-20 17:48] LABS: ALB/GLOB RATIO 0.8 (1.0-2.1); ALBUMIN 4.1 g/dL (3.5-5.0); ALT/SGPT 10 U/L (21-72); AST/SGOT 24 U/L (17-59); BLOOD UREA NITROGEN 18 mg/dL (9-20); CALCIUM 10.2 mg/dl (8.6-10.4); GFR AFRICAN-AMERICAN > 60; GFR NON-AFRICAN AMERICAN > 60
--- NOTE | 2017-12-20 18:02 | CP.PCM.HP ---
History of Present Illness - History of Present Illness History of Present Illness: CC: right hand swelling and drainage from cat bite HPI 52M presents with worsening of swelling and pain to right hand after cat bite 2 weeks from 11/30. Patient had I&D by Dr. Garcia with pulse irrigation, and was seen by ID Dr. Marquez during last admission. Patient had a PICC placed and received IV antibiotics during his stay. Patient admits to right hand pain and drainage coming from his right hand wound. Patient states his hands are warm and swollen. Abscess was positive for Pasteurella multocida with sensitivities to Tigecycline, cefazolin, and meropenem. Patient signed out AMA last time due to needing to feed his cat. Patient denies fever, chills, nausea, vomiting, vision changes, seizures, rash, cough. PMH: DM2, takes no medications PSH: denies FH: Unremarkable SH: Denies smoking, drinking ETOH, illicit drugs Allergies: NKDA Present on Admission - Present on Admission Any Indicators Present on Admission: No History of DVT/PE: No History of Uncontrolled Diabetes: No Urinary Catheter: No Decubitus Ulcer Present: No Past Patient History - Infectious Disease Hx of Infectious Diseases: None - Past Medical History & Family History Past Medical History?: Yes - Past Social History Smoking Status: Never Smoked Alcohol: < 2 Drinks/Day Drugs: Denies - ENDOCRINE/METABOLIC Hx Diabetes Mellitus Type 2: Yes - MUSCULOSKELETAL/RHEUMATOLOGICAL Hx Falls: No - PSYCHIATRIC Hx Substance Use: No - SURGICAL HISTORY Hx Surgeries: Yes Other/Comment: Right hand I&D after cat bite. - ANESTHESIA Hx Anesthesia: No Meds Allergies/Adverse Reactions: Allergies Allergy/AdvReac Type Severity Reaction Status Date / Time No Known Allergies Allergy Verified 12/20/17 16:28 Physical Exam - Constitutional Appears: Non-toxic, No Acute Distress - Head Exam Head Exam: ATRAUMATIC, NORMAL INSPECTION, NORMOCEPHALIC - Eye Exam Eye Exam: EOMI, Normal appearance Pupil Exam: NORMAL ACCOMODATION - ENT Exam ENT Exam: Mucous Membranes Moist, Normal Exam - Neck Exam Neck exam: Positive for: Normal Inspection - Respiratory Exam Respiratory Exam: Clear to Auscultation Bilateral - Cardiovascular Exam Cardiovascular Exam: REGULAR RHYTHM, +S1, +S2 - GI/Abdominal Exam GI & Abdominal Exam: Normal Bowel Sounds, Soft - Extremities Exam Extremities exam: Positive for: full ROM, normal inspection Additional comments: right hand with opening on right thenar eminence. 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 - Back Exam Back exam: FULL ROM - Neurological Exam Neurological exam: Alert, CN II-XII Intact, Normal Gait, Oriented x3 - Psychiatric Exam Psychiatric exam: Normal Affect, Normal Mood - Skin Skin Exam: Dry, Warm Results - Vital Signs Recent Vital Signs: Last Vital Signs Temp 97.9 F 12/20/17 16:29 Pulse 134 H 12/20/17 16:29 Resp 20 12/20/17 16:29 BP 129/85 12/20/17 16:29 Pulse Ox 100 12/20/17 17:56 - Labs Result Diagrams: 12/20/17 17:06 12/20/17 17:06 Labs: Laboratory Results - last 24 hr 12/20/17 12/20/17 12/20/17 17:06 17:06 17:06 WBC 8.0 RBC 5.13 Hgb 14.4 D Hct 42.4 MCV 82.6 MCH 28.0 MCHC 33.9 RDW 14.2 Plt Count 274 D MPV 9.5 Neut % (Auto) 71.3 Lymph % (Auto) 13.4 L [place] % (Auto) 9.9 Eos % (Auto) 2.8 Baso % (Auto) 2.6 H Neut # (Auto) 5.7 Lymph # (Auto) 1.1 [place] # (Auto) 0.8 Eos # (Auto) 0.2 Baso # (Auto) 0.2 APTT 37 H Sodium 138 Potassium 4.3 Chloride 96 L Carbon Dioxide 28 Anion Gap 19 BUN 18 Creatinine 1.2 Est GFR ( Amer) > 60 Est GFR (Non-Af Amer) > 60 Random Glucose 182 H Calcium 10.2 Total Bilirubin 2.1 H AST 24 ALT 10 L Alkaline Phosphatase 87 Troponin I < 0.0120 Total Protein 9.2 H Albumin 4.1 Globulin 5.1 H Albumin/Globulin Ratio 0.8 L Assessment & Plan - Assessment and Plan (Free Text) Assessment: 52M with past medical history of T2DM without medication. Patient left hospital from previous stay s/p I&D of abscess Cat bite s/p I&D Warm compresses Nothing to drain at this time f/u Blood culture f/u AM CBC Surgery Consult: Dr. Garcia ID Consult: Dr. Mangia Merrem 500mg IVPB Q8H Morphine 1 mg IV Q6H PRN pain NS @100cc/hr Prophylaxis Pepcid 20mg PO QD SCDs when in bed. Patient can ambulate Discussed with Dr. Marisol Dye DO - Date & Time Date: 12/20/17 Time: 17:59
--- NOTE | 2017-12-20 18:13 | RAD ---
PROCEDURE: Right Hand Radiographs. HISTORY: pain and swelling, infection cat bite COMPARISON: None. FINDINGS: BONES: Normal. No fracture. JOINTS: Normal. No osteoarthritic changes. SOFT TISSUES: Soft tissue swelling at the level of the metacarpals. OTHER FINDINGS: None. IMPRESSION: Soft tissue swelling without acute articular or osseous abnormality.
[2017-12-20] MEDS: Sodium Chloride 0.9% 1,000 ML IV SCH (18:48)
[2017-12-20] MEDS ORDERED: Glucagon Recombinant 1 mg Inj IM PRN (18:57)
[2017-12-20] MEDS ORDERED: Dextrose 50% SYRINGE Inj (50 ml) IV PRN (18:57)
[2017-12-20] MEDS: Meropenem 500 MG in Sodium Chloride 0.9% 100 ML IVPB SCH ×2 (19:09→19:10)
--- NOTE | 2017-12-20 19:12 | CP.PCM.CON ---
History of Present Illness - History of Present Illness History of Present Illness: Surgery: Dr. Garcia Reason for consult: hand cellulitis s/p I&D CC: Right hand swelling and redness HPI: Patient is a 52 y/o male who present to ER complaining of right hand swelling and redness x1 day. Per patient report he was recently hospitalized in November for similar symptoms. He states the symptoms originally started s/p stray cat bite to the right base of thumb. Patient was admitted for IV abx and went to OR for I&d and washout of right thenar eminence wound. Patient for personal reasons left AMA prior to completion of full course of IV abx. He now returns with the above stated symptoms. He denies any further trauma to the hand. He denies fever, chills, or drainage from hand wound. PMH: DMII, untreated PSH: I&D of right thenar eminence due to cat bite Social: lives at home, multiple cats. Denies etho, tobacco, or drug use. Review of Systems - Review of Systems All systems: reviewed and no additional remarkable complaints except Review of Systems: unless stated in HPI Past Patient History - Infectious Disease Hx of Infectious Diseases: None - Past Medical History & Family History Past Medical History?: Yes - Past Social History Smoking Status: Never Smoked Alcohol: < 2 Drinks/Day Drugs: Denies - ENDOCRINE/METABOLIC Hx Diabetes Mellitus Type 2: Yes - MUSCULOSKELETAL/RHEUMATOLOGICAL Hx Falls: No - PSYCHIATRIC Hx Substance Use: No - SURGICAL HISTORY Hx Surgeries: Yes Other/Comment: Right hand I&D after cat bite. - ANESTHESIA Hx Anesthesia: No Meds Allergies/Adverse Reactions: Allergies Allergy/AdvReac Type Severity Reaction Status Date / Time No Known Allergies Allergy Verified 12/20/17 16:28 - Medications Medications: Current Medications Acetaminophen (Tylenol 325mg Tab) 650 mg PO Q6H PRN PRN Reason: Fever >100.4 F Dextrose (Dextrose 50% Inj) 0 ml IV STAT PRN; Protocol PRN Reason: Hypoglycemia Protocol Dextrose (Glutose 15) 0 gm PO ONCE PRN; Protocol PRN Reason: Hypoglycemia Protocol Glucagon (Glucagen Diagnostic Kit) 0 mg IM STAT PRN; Protocol PRN Reason: Hypoglycemia Protocol Meropenem 500 mg/ Sodium (Chloride) 100 mls @ 100 mls/hr IVPB Q8 [facility] PRN Reason: Protocol Sodium Chloride (Sodium Chloride 0.9%) 1,000 mls @ 100 mls/hr IV .Q10H [facility] Last Admin: 12/20/17 18:48 Dose: 100 mls/hr Dextrose (Dextrose 5% In Water 1000 Ml) 1,000 mls @ 0 mls/hr IV .Q0M PRN; Protocol; Per Protocol PRN Reason: Hypoglycemia Protocol Morphine Sulfate (Morphine) 1 mg IVP Q6H PRN PRN Reason: Pain, severe (8-10) Physical Exam - Constitutional Appears: Non-toxic, No Acute Distress - Head Exam Head Exam: ATRAUMATIC, NORMOCEPHALIC - Eye Exam Eye Exam: EOMI, Normal appearance - ENT Exam ENT Exam: Mucous Membranes Moist - Respiratory Exam Respiratory Exam: NORMAL BREATHING PATTERN. absent: Respiratory Distress - Cardiovascular Exam Cardiovascular Exam: REGULAR RHYTHM. absent: Tachycardia - GI/Abdominal Exam GI & Abdominal Exam: Soft. absent: Distended, Tenderness - Extremities Exam Extremities exam: Positive for: normal inspection. Negative for: calf tenderness Additional comments: cellulitic changes noted to dorsum and palmar surface of right hand prior I&D site note with granulation tissue and serous fluid drainage no fluctuance appreciated proximal streaking up forearm to elbow noted on ventral surface unable to make fist with right hand no pain with motion - Expanded Upper Extremities Exam Right Elbow exam: absent: crepitus Forearm Wrist exam: absent: crepitus, deformity, ecchymosis, swelling Neuro motor exam: wrist extension intact Vascular exam: radial pulse, ulnar pulse, normal capillary refill Results - Vital Signs Recent Vital Signs: Last Vital Signs Temp 97.9 F 12/20/17 16:29 Pulse 134 H 12/20/17 16:29 Resp 20 12/20/17 16:29 BP 129/85 12/20/17 16:29 Pulse Ox 100 12/20/17 17:56 - Labs Result Diagrams: 12/20/17 17:06 12/20/17 17:06 Labs: Laboratory Results - last 24 hr 12/20/17 12/20/17 12/20/17 17:06 17:06 17:06 WBC 8.0 RBC 5.13 Hgb 14.4 D Hct 42.4 MCV 82.6 MCH 28.0 MCHC 33.9 RDW 14.2 Plt Count 274 D MPV 9.5 Neut % (Auto) 71.3 Lymph % (Auto) 13.4 L [place] % (Auto) 9.9 Eos % (Auto) 2.8 Baso % (Auto) 2.6 H Neut # (Auto) 5.7 Lymph # (Auto) 1.1 [place] # (Auto) 0.8 Eos # (Auto) 0.2 Baso # (Auto) 0.2 APTT 37 H Sodium 138 Potassium 4.3 Chloride 96 L Carbon Dioxide 28 Anion Gap 19 BUN 18 Creatinine 1.2 Est GFR ( Amer) > 60 Est GFR (Non-Af Amer) > 60 Random Glucose 182 H Calcium 10.2 Total Bilirubin 2.1 H AST 24 ALT 10 L Alkaline Phosphatase 87 Troponin I < 0.0120 Total Protein 9.2 H Albumin 4.1 Globulin 5.1 H Albumin/Globulin Ratio 0.8 L Assessment & Plan - Assessment and Plan (Free Text) Assessment: 52 y/o male w/ right hand cellulitis and possible lymphangitis s/p cat bite Plan: -prior I&d attempts made on last admission, will medically treat for now -admit for IV abx -keep right arm elevated -warm compress -ID consult -OT eval -social work involvement for prior admissions of leaving AMA -d/w Dr. Jose Garza PGY3
[2017-12-20] MEDS ORDERED: Iodixanol 320 MG/ML 100 ML BOTTLE IV ONE (19:27)
--- NOTE | 2017-12-20 21:16 | CT ---
EXAM: CT Right Upper Extremity With Intravenous Contrast, Hand CLINICAL HISTORY: 52 years old, male; Condition or disease; Abscess and cellulitis and edema of upper limb; Hand; Right; Additional info: Right hand cellulitis/abscess. TECHNIQUE: Axial computed tomography images of the right hand with intravenous contrast. All CT scans at this facility use one or more dose reduction techniques, viz.: automated exposure control; ma/kV adjustment per patient size (including targeted exams where dose is matched to indication; i.e. head); or iterative reconstruction technique. Coronal and sagittal reformatted images were created and reviewed. CONTRAST: 100 mL of visipaque 320 administered intravenously. COMPARISON: No relevant prior studies available. FINDINGS: Bones/joints: No acute fracture. No dislocation. Focal cortical erosion base of first proximal phalanx. Soft tissues: Skin thickening. Moderate to extensive stranding within subcutaneous tissues. 1.3 x 1.2 x 0.8 cm peripherally enhancing fluid collection along palmar aspect base of first digit. 1.9 x 1.0 x 2.1 cm peripherally enhancing fluid collection along dorsal aspect base of first digit. IMPRESSION: 1. 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
[2017-12-21] MEDS: Sodium Chloride 0.9% 1,000 ML IV SCH ×2 (03:07→13:43)
[2017-12-21] MEDS: Meropenem 500 MG in Sodium Chloride 0.9% 100 ML IVPB SCH ×4 (05:21→21:05)
--- NOTE | 2017-12-21 07:11 | CP.PCM.PN ---
Subjective - Date & Time of Evaluation Date of Evaluation: 12/21/17 Time of Evaluation: 07:00 - Subjective Subjective: Medicine Progress Notes: Patient was seen and examined at bedside. Patient states during his previous admission he had to leave to feed his cats however he now is currently ready for medical care. Patient denies pain in his hands, fever, chills, nausea or vomiting. Objective - Vital Signs/Intake and Output Vital Signs (last 24 hours): Temp Pulse Resp BP Pulse Ox 98.2 F 109 H 20 115/70 97 12/21/17 00:00 12/21/17 00:00 12/21/17 00:00 12/21/17 00:00 12/21/17 00:00 Intake and Output: 12/21/17 12/21/17 06:59 18:59 Intake Total 1100 Balance 1100 - Medications Medications: Current Medications Acetaminophen (Tylenol 325mg Tab) 650 mg PO Q6H PRN PRN Reason: Fever >100.4 F Dextrose (Dextrose 50% Inj) 0 ml IV STAT PRN; Protocol PRN Reason: Hypoglycemia Protocol Dextrose (Glutose 15) 0 gm PO ONCE PRN; Protocol PRN Reason: Hypoglycemia Protocol Glucagon (Glucagen Diagnostic Kit) 0 mg IM STAT PRN; Protocol PRN Reason: Hypoglycemia Protocol Sodium Chloride (Sodium Chloride 0.9%) 1,000 mls @ 100 mls/hr IV .Q10H [facility] Last Admin: 12/21/17 03:07 Dose: 100 mls/hr Dextrose (Dextrose 5% In Water 1000 Ml) 1,000 mls @ 0 mls/hr IV .Q0M PRN; Protocol; Per Protocol PRN Reason: Hypoglycemia Protocol Meropenem 500 mg/ Sodium (Chloride) 100 mls @ 100 mls/hr IVPB Q8 [facility]A PRN Reason: Protocol Last Admin: 12/21/17 05:47 Dose: 100 mls/hr Ibuprofen (Motrin Tab) 600 mg PO Q6 PRN PRN Reason: Pain, Mild (1-3) Pneumococcal Polyvalent Vaccine (Pneumovax 23 Vaccine) 0.5 ml IM .ONCE ONE Stop: 12/23/17 10:01 Tramadol HCl (Ultram) 50 mg PO TID PRN PRN Reason: Pain, moderate (4-7) - Labs Labs: 12/20/17 17:06 12/20/17 17:06 APTT 37 SECONDS (21-34) H 12/20/17 17:06 - Constitutional Appears: No Acute Distress - Head Exam Head Exam: ATRAUMATIC, NORMAL INSPECTION - Eye Exam Eye Exam: EOMI, Normal appearance - ENT Exam ENT Exam: Mucous Membranes Moist - Respiratory Exam Respiratory Exam: Clear to Ausculation Bilateral, NORMAL BREATHING PATTERN - Cardiovascular Exam Cardiovascular Exam: REGULAR RHYTHM, +S1, +S2 - GI/Abdominal Exam GI & Abdominal Exam: Soft, Normal Bowel Sounds. absent: Tenderness - Extremities Exam Additional comments: right hand with opening on right thenar eminence. hand former is erythematous, edematous. - Neurological Exam Neurological Exam: Alert, Awake, Oriented x3 - Psychiatric Exam Psychiatric exam: Normal Affect, Normal Mood Assessment and Plan - Assessment and Plan (Free Text) Assessment: 1.) Cat bite s/p I&D - afebrile - f/u Blood culture Surgery Consult: Dr. Garcia --> help appreciated - As per surgical team - no surgical intervention needed at this time; continue IV antibiotics, continue warm compress ID Consult: Dr. Marquez --> help appreciated - Spoke with Dr. Marquez 12/21/17 and he stated to continue the Merrem - Medications * Merrem 500mg IVPB Q8H (started 12/20/17) * Tramadol 50mg po tid prn * Motrin 600mg po q6 prn * Acetaminophen 650mg po q6 prn * NS @100cc/hr 2.) History of Diabetes - hA1c (12/01/17): 10.0 - Lipid Panel (12/01/17): Total cholesterol 116, LDL 64, HDL 21, Triglycerides 96 - Accuchecks - ISS - Hypoglycemia Protocol 3.) Prophylaxis - Pepcid 20mg PO bid - SCDs when in bed. - heparin sc Case discussed with Dr. Marisol Franks PGY-1
[2017-12-21 07:47] LABS: ALB/GLOB RATIO 0.9 (1.0-2.1); ALBUMIN 3.5 g/dL (3.5-5.0); ALT/SGPT < 6 U/L (21-72); AST/SGOT 19 U/L (17-59); BLOOD UREA NITROGEN 13 mg/dL (9-20); CALCIUM 8.9 mg/dl (8.6-10.4); GFR AFRICAN-AMERICAN > 60; GFR NON-AFRICAN AMERICAN > 60
[2017-12-21] MEDS: (Novolin R) Insulin Human Regular 100 units/ml vial SC SCH ×3 (11:56→21:10)
--- NOTE | 2017-12-21 12:29 | CP.PCM.PN ---
Subjective - Date & Time of Evaluation Date of Evaluation: 12/21/17 Time of Evaluation: 12:27 - Subjective Subjective: Plastic Progress Note for Dr. Garcia This 52M was seen and examine this AM at bedside no acute events overnight. His hand swelling has fanny down and his volar erthematous streak has receded. He denies fevers chills chest pain or SOB overnight. Objective - Vital Signs/Intake and Output Vital Signs (last 24 hours): Temp Pulse Resp BP Pulse Ox 98.5 F 69 20 125/75 97 12/21/17 08:00 12/21/17 08:00 12/21/17 08:00 12/21/17 08:00 12/21/17 08:00 Intake and Output: 12/21/17 12/21/17 06:59 18:59 Intake Total 1100 Balance 1100 - Medications Medications: Current Medications Acetaminophen (Tylenol 325mg Tab) 650 mg PO Q6H PRN PRN Reason: Fever >100.4 F Dextrose (Dextrose 50% Inj) 0 ml IV STAT PRN; Protocol PRN Reason: Hypoglycemia Protocol Dextrose (Glutose 15) 0 gm PO ONCE PRN; Protocol PRN Reason: Hypoglycemia Protocol Famotidine (Pepcid) 20 mg PO BID ANGELA Glucagon (Glucagen Diagnostic Kit) 0 mg IM STAT PRN; Protocol PRN Reason: Hypoglycemia Protocol Sodium Chloride (Sodium Chloride 0.9%) 1,000 mls @ 100 mls/hr IV .Q10H [facility] Last Admin: 12/21/17 03:07 Dose: 100 mls/hr Dextrose (Dextrose 5% In Water 1000 Ml) 1,000 mls @ 0 mls/hr IV .Q0M PRN; Protocol; Per Protocol PRN Reason: Hypoglycemia Protocol Meropenem 500 mg/ Sodium (Chloride) 100 mls @ 100 mls/hr IVPB Q8 ANGELA PRN Reason: Protocol Last Admin: 12/21/17 05:47 Dose: 100 mls/hr Ibuprofen (Motrin Tab) 600 mg PO Q6 PRN PRN Reason: Pain, Mild (1-3) Insulin Human Regular (Novolin R) 0 unit SC ACHS ANGELA PRN Reason: Protocol Last Admin: 12/21/17 11:56 Dose: Not Given Pneumococcal Polyvalent Vaccine (Pneumovax 23 Vaccine) 0.5 ml IM .ONCE ONE Stop: 12/23/17 10:01 Tramadol HCl (Ultram) 50 mg PO TID PRN PRN Reason: Pain, moderate (4-7) - Labs Labs: 12/20/17 17:06 12/21/17 07:08 APTT 37 SECONDS (21-34) H 12/20/17 17:06 - Constitutional Appears: Non-toxic, No Acute Distress - Head Exam Head Exam: ATRAUMATIC, NORMOCEPHALIC - Eye Exam Eye Exam: EOMI - ENT Exam ENT Exam: Mucous Membranes Moist - Respiratory Exam Respiratory Exam: NORMAL BREATHING PATTERN - Cardiovascular Exam Cardiovascular Exam: +S1, +S2 - GI/Abdominal Exam GI & Abdominal Exam: Soft. absent: Guarding, Rigid, Tenderness - Neurological Exam Neurological Exam: Alert, Awake - Psychiatric Exam Psychiatric exam: Normal Affect, Normal Mood - Skin Skin Exam: Dry, Intact Assessment and Plan - Assessment and Plan (Free Text) Assessment: 52M with RUE cellulitis IV abx hand elevation Twice daily betadine denise D/W Dr. Jose Villatoro PGY2
--- NOTE | 2017-12-21 17:28 | CP.PCM.CON ---
History of Present Illness - History of Present Illness History of Present Illness: 52M presents with worsening of swelling and pain to right hand after cat bite 2 weeks from 11/30. Patient had I&D by Dr. Garcia with pulse irrigation Patient had a PICC placed and received IV antibiotics during his stay Abscess was positive for Pasteurella multocida . Patient signed out AMA last time due to needing to feed his cat. PATIENT RETURNS WITH NON HEALING WOUND TO RIGHT HAND WOITH PERSISTENT SWELLING CT SHOWS OM RIGHT HAND PROX PHALYNX THUMB WILL NEED 6 WEEKS IV RX PMH: DM2, takes no medications PSH: denies FH: Unremarkable SH: Denies smoking, drinking ETOH, illicit drugs Allergies: NKDA Review of Systems - Review of Systems All systems: reviewed and no additional remarkable complaints except Past Patient History - Infectious Disease Hx of Infectious Diseases: None - Past Medical History & Family History Past Medical History?: Yes - Past Social History Smoking Status: Never Smoked - CARDIAC Hx Cardiac Disorders: No - PULMONARY Hx Respiratory Disorders: No - NEUROLOGICAL Hx Neurological Disorder: No - HEENT Hx HEENT Problems: No - ENDOCRINE/METABOLIC Hx Diabetes Mellitus Type 2: Yes - HEMATOLOGICAL/ONCOLOGICAL Hx Blood Disorders: No - INTEGUMENTARY Hx Dermatological Problems: No - MUSCULOSKELETAL/RHEUMATOLOGICAL Hx Musculoskeletal Disorders: No Hx Falls: No - GASTROINTESTINAL Hx Gastrointestinal Disorders: No - GENITOURINARY/GYNECOLOGICAL Hx Genitourinary Disorders: No - PSYCHIATRIC Hx Substance Use: No - SURGICAL HISTORY Hx Surgeries: Yes Other/Comment: Right hand I&D after cat bite. - ANESTHESIA Hx Anesthesia: No Hx Anesthesia Reactions: No Hx Malignant Hyperthermia: No Has any member of the family had a problem w/ anesthesia?: No Meds Allergies/Adverse Reactions: Allergies Allergy/AdvReac Type Severity Reaction Status Date / Time No Known Allergies Allergy Verified 12/20/17 16:28 - Medications Medications: Current Medications Acetaminophen (Tylenol 325mg Tab) 650 mg PO Q6H PRN PRN Reason: Fever >100.4 F Dextrose (Dextrose 50% Inj) 0 ml IV STAT PRN; Protocol PRN Reason: Hypoglycemia Protocol Dextrose (Glutose 15) 0 gm PO ONCE PRN; Protocol PRN Reason: Hypoglycemia Protocol Famotidine (Pepcid) 20 mg PO BID [facility]A Last Admin: 12/21/17 17:22 Dose: 20 mg Glucagon (Glucagen Diagnostic Kit) 0 mg IM STAT PRN; Protocol PRN Reason: Hypoglycemia Protocol Heparin Sodium (Porcine) (Heparin) 5,000 units SC Q8 [facility] Last Admin: 12/21/17 13:53 Dose: 5,000 units Sodium Chloride (Sodium Chloride 0.9%) 1,000 mls @ 100 mls/hr IV .Q10H [facility] Last Admin: 12/21/17 13:43 Dose: Not Given Dextrose (Dextrose 5% In Water 1000 Ml) 1,000 mls @ 0 mls/hr IV .Q0M PRN; Protocol; Per Protocol PRN Reason: Hypoglycemia Protocol Meropenem 500 mg/ Sodium (Chloride) 100 mls @ 100 mls/hr IVPB Q8 [facility] PRN Reason: Protocol Last Admin: 12/21/17 13:53 Dose: 100 mls/hr Ibuprofen (Motrin Tab) 600 mg PO Q6 PRN PRN Reason: Pain, Mild (1-3) Insulin Human Regular (Novolin R) 0 unit SC ACHS [facility] PRN Reason: Protocol Last Admin: 12/21/17 16:36 Dose: Not Given Pneumococcal Polyvalent Vaccine (Pneumovax 23 Vaccine) 0.5 ml IM .ONCE ONE Stop: 12/23/17 10:01 Tramadol HCl (Ultram) 50 mg PO TID PRN PRN Reason: Pain, moderate (4-7) Physical Exam - Constitutional Appears: No Acute Distress - Head Exam Head Exam: ATRAUMATIC, NORMOCEPHALIC - Eye Exam Eye Exam: absent: Scleral icterus - ENT Exam ENT Exam: Mucous Membranes Dry - Neck Exam Neck exam: Negative for: Lymphadenopathy - Respiratory Exam Respiratory Exam: Decreased Breath Sounds - Cardiovascular Exam Cardiovascular Exam: REGULAR RHYTHM - GI/Abdominal Exam GI & Abdominal Exam: Diminished Bowel Sounds, Soft - Rectal Exam Rectal Exam: Deferred - Exam Exam: NORMAL INSPECTION - Extremities Exam Extremities exam: Negative for: pedal edema - Back Exam Back exam: absent: CVA tenderness (L), CVA tenderness (R) - Neurological Exam Neurological exam: Alert, CN II-XII Intact, Oriented x3, Reflexes Normal - Psychiatric Exam Psychiatric exam: Normal Mood - Skin Skin Exam: Dry, Intact Additional comments: SWELLING RIGHT HAND WITH SOME DRAINAGE Results - Vital Signs Recent Vital Signs: Last Vital Signs Temp 98.5 F 12/21/17 08:00 Pulse 69 12/21/17 08:00 Resp 20 12/21/17 08:00 BP 125/75 12/21/17 08:00 Pulse Ox 97 12/21/17 08:00 - Labs Result Diagrams: 12/20/17 17:06 12/21/17 07:08 Labs: Laboratory Results - last 24 hr 12/20/17 12/20/17 12/21/17 17:06 21:36 06:53 Sodium 138 Potassium 4.3 Chloride 96 L Carbon Dioxide 28 Anion Gap 19 BUN 18 Creatinine 1.2 Est GFR ( Amer) > 60 Est GFR (Non-Af Amer) > 60 POC Glucose (mg/dL) 134 H 105 Random Glucose 182 H Calcium 10.2 Phosphorus Magnesium Total Bilirubin 2.1 H AST 24 ALT 10 L Alkaline Phosphatase 87 Troponin I < 0.0120 Total Protein 9.2 H Albumin 4.1 Globulin 5.1 H Albumin/Globulin Ratio 0.8 L 12/21/17 12/21/17 12/21/17 07:08 11:19 16:23 Sodium 141 Potassium 3.8 Chloride 102 Carbon Dioxide 26 Anion Gap 16 BUN 13 Creatinine 0.9 Est GFR ( Amer) > 60 Est GFR (Non-Af Amer) > 60 POC Glucose (mg/dL) 141 H 142 H Random Glucose 122 H Calcium 8.9 Phosphorus 3.6 Magnesium 2.0 Total Bilirubin 1.1 AST 19 ALT < 6 L D Alkaline Phosphatase 67 Troponin I Total Protein 7.5 Albumin 3.5 Globulin 4.0 H Albumin/Globulin Ratio 0.9 L Assessment & Plan (1) Pasteurella cellulitis due to cat bite Status: Acute (2) Pasteurella cellulitis due to cat bite Status: Acute (3) Diabetes mellitus Status: Chronic Priority: High - Assessment and Plan (Free Text) Assessment: WILL NEED IV RX FOR 6-8 WEEKS CLOSE SURGICAL FOLLOW UP
--- NOTE | 2017-12-22 03:23 | CP.PCM.PN ---
Subjective - Date & Time of Evaluation Date of Evaluation: 12/22/17 Time of Evaluation: 03:24 - Subjective Subjective: Progress note for Dr. Damon Patient seen and examined at bedside. Patient is tolerating pain well. Patient continues to be treated for cellulitis. Patient expresses understanding of plan. Patient denies fever, chills, nausea, vomiting. No acute events overnight Objective - Vital Signs/Intake and Output Vital Signs (last 24 hours): Temp Pulse Resp BP Pulse Ox 97.4 F L 93 H 20 119/80 99 12/22/17 00:00 12/22/17 00:00 12/22/17 00:00 12/22/17 00:00 12/22/17 00:00 Intake and Output: 12/21/17 12/22/17 18:59 06:59 Intake Total 1040 950 Balance 1040 950 - Medications Medications: Current Medications Acetaminophen (Tylenol 325mg Tab) 650 mg PO Q6H PRN PRN Reason: Fever >100.4 F Dextrose (Dextrose 50% Inj) 0 ml IV STAT PRN; Protocol PRN Reason: Hypoglycemia Protocol Dextrose (Glutose 15) 0 gm PO ONCE PRN; Protocol PRN Reason: Hypoglycemia Protocol Famotidine (Pepcid) 20 mg PO BID [facility] Last Admin: 12/21/17 17:22 Dose: 20 mg Glucagon (Glucagen Diagnostic Kit) 0 mg IM STAT PRN; Protocol PRN Reason: Hypoglycemia Protocol Heparin Sodium (Porcine) (Heparin) 5,000 units SC Q8 [facility] Last Admin: 12/21/17 21:06 Dose: 5,000 units Sodium Chloride (Sodium Chloride 0.9%) 1,000 mls @ 100 mls/hr IV .Q10H [facility] Last Admin: 12/21/17 13:43 Dose: Not Given Dextrose (Dextrose 5% In Water 1000 Ml) 1,000 mls @ 0 mls/hr IV .Q0M PRN; Protocol; Per Protocol PRN Reason: Hypoglycemia Protocol Meropenem 500 mg/ Sodium (Chloride) 100 mls @ 100 mls/hr IVPB Q8 [facility] PRN Reason: Protocol Last Admin: 12/21/17 21:05 Dose: 100 mls/hr Ibuprofen (Motrin Tab) 600 mg PO Q6 PRN PRN Reason: Pain, Mild (1-3) Insulin Human Regular (Novolin R) 0 unit SC ACHS [facility] PRN Reason: Protocol Last Admin: 12/21/17 21:10 Dose: Not Given Pneumococcal Polyvalent Vaccine (Pneumovax 23 Vaccine) 0.5 ml IM .ONCE ONE Stop: 12/23/17 10:01 Tramadol HCl (Ultram) 50 mg PO TID PRN PRN Reason: Pain, moderate (4-7) - Labs Labs: 12/20/17 17:06 12/21/17 07:08 APTT 37 SECONDS (21-34) H 12/20/17 17:06 - Additional Findings Additional findings: - Constitutional Appears: No Acute Distress - Head Exam Head Exam: ATRAUMATIC, NORMAL INSPECTION - Eye Exam Eye Exam: EOMI, Normal appearance - ENT Exam ENT Exam: Mucous Membranes Moist - Respiratory Exam Respiratory Exam: Clear to Ausculation Bilateral, NORMAL BREATHING PATTERN - Cardiovascular Exam Cardiovascular Exam: REGULAR RHYTHM, +S1, +S2 - GI/Abdominal Exam GI & Abdominal Exam: Soft, Normal Bowel Sounds. absent: Tenderness - Extremities Exam Additional comments: right hand with opening on right thenar eminence. 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 - Neurological Exam Neurological Exam: Alert, Awake, Oriented x3 - Psychiatric Exam Psychiatric exam: Normal Affect, Normal Mood Assessment and Plan - Assessment and Plan (Free Text) Assessment: 1.) stray Cat bite s/p I&D - afebrile - Hand x-ray (12/20/17): Soft tissue swelling without acute articular or osseous abnormaity. - Upper extremity CT (12/20/17): Findings compatible with osteomyelitis of first proximal phalanx, cellulitis and soft tissue abscesses. - Wound culture from previous admission (11/30/17): positive for Pasteurella multocida with sensitivity to meropenem - f/u Blood culture Surgery Consult: Dr. Garcia - As per surgical team - no surgical intervention needed at this time; continue IV antibiotics, continue warm compress ID Consult: Dr. Marquez - Spoke with Dr. Marquez 12/21/17 and he stated to continue the Merrem - Medications * Merrem 500mg IVPB Q8H (started 12/20/17) * Tramadol 50mg po tid prn * Motrin 600mg po q6 prn * Acetaminophen 650mg po q6 prn * NS @100cc/hr 2.) History of Diabetes - hA1c (4/21/18): 10.0 - Lipid Panel (12/01/17): Total cholesterol 116, LDL 64, HDL 21, Triglycerides 96 - Accuchecks - ISS - Hypoglycemia Protocol 3.) Prophylaxis - Pepcid 20mg PO bid - SCDs when in bed. - heparin sc Case discussed with Dr. Marisol Dye, DO PGY1
[2017-12-22] MEDS: Meropenem 500 MG in Sodium Chloride 0.9% 100 ML IVPB SCH ×3 (05:28→21:40)
[2017-12-22] MEDS: Sodium Chloride 0.9% 1,000 ML IV SCH ×4 (05:29→18:12)
[2017-12-22] MEDS: (Novolin R) Insulin Human Regular 100 units/ml vial SC SCH ×4 (08:03→21:43)
--- NOTE | 2017-12-22 08:34 | CP.PCM.PN ---
Subjective - Date & Time of Evaluation Date of Evaluation: 12/22/17 Time of Evaluation: 07:00 - Subjective Subjective: Hand Surgery- Dr. Garcia patient seen and examined at bedside this AM. Right hand still swollen however better than yesterday. No active drainage. Limited ROM on wrist extension and 1st to 5th opponens. Betadine soaks x2 yesterday and warm compresses Denies fevers, chills, chest pain, shortness of breath, nausea, vomiting diarrhea Objective - Vital Signs/Intake and Output Vital Signs (last 24 hours): Temp Pulse Resp BP Pulse Ox 97.6 F 82 20 113/75 99 12/22/17 07:54 12/22/17 07:54 12/22/17 07:54 12/22/17 07:54 12/22/17 07:54 Intake and Output: 12/22/17 12/22/17 06:59 18:59 Intake Total 1750 Balance 1750 - Medications Medications: Current Medications Acetaminophen (Tylenol 325mg Tab) 650 mg PO Q6H PRN PRN Reason: Fever >100.4 F Dextrose (Dextrose 50% Inj) 0 ml IV STAT PRN; Protocol PRN Reason: Hypoglycemia Protocol Dextrose (Glutose 15) 0 gm PO ONCE PRN; Protocol PRN Reason: Hypoglycemia Protocol Famotidine (Pepcid) 20 mg PO BID [facility] Last Admin: 12/21/17 17:22 Dose: 20 mg Glucagon (Glucagen Diagnostic Kit) 0 mg IM STAT PRN; Protocol PRN Reason: Hypoglycemia Protocol Heparin Sodium (Porcine) (Heparin) 5,000 units SC Q8 [facility] Last Admin: 12/22/17 05:31 Dose: 5,000 units Sodium Chloride (Sodium Chloride 0.9%) 1,000 mls @ 100 mls/hr IV .Q10H [facility] Last Admin: 12/22/17 05:29 Dose: 100 mls/hr Dextrose (Dextrose 5% In Water 1000 Ml) 1,000 mls @ 0 mls/hr IV .Q0M PRN; Protocol; Per Protocol PRN Reason: Hypoglycemia Protocol Meropenem 500 mg/ Sodium (Chloride) 100 mls @ 100 mls/hr IVPB Q8 [facility] PRN Reason: Protocol Last Admin: 12/22/17 05:28 Dose: 100 mls/hr Ibuprofen (Motrin Tab) 600 mg PO Q6 PRN PRN Reason: Pain, Mild (1-3) Insulin Human Regular (Novolin R) 0 unit SC ACHS [facility] PRN Reason: Protocol Last Admin: 12/22/17 08:03 Dose: Not Given Pneumococcal Polyvalent Vaccine (Pneumovax 23 Vaccine) 0.5 ml IM .ONCE ONE Stop: 12/23/17 10:01 Tramadol HCl (Ultram) 50 mg PO TID PRN PRN Reason: Pain, moderate (4-7) - Labs Labs: 12/20/17 17:06 12/21/17 07:08 APTT 37 SECONDS (21-34) H 12/20/17 17:06 - Constitutional Appears: Non-toxic, No Acute Distress - Head Exam Head Exam: ATRAUMATIC - Eye Exam Eye Exam: EOMI. absent: Scleral icterus - ENT Exam ENT Exam: Mucous Membranes Moist - Respiratory Exam Respiratory Exam: NORMAL BREATHING PATTERN. absent: Accessory Muscle Use, Respiratory Distress - Cardiovascular Exam Cardiovascular Exam: +S1, +S2. absent: Bradycardia, Tachycardia - GI/Abdominal Exam GI & Abdominal Exam: Soft. absent: Distended, Firm, Guarding, Rigid, Tenderness - Extremities Exam Additional comments: RUE swelling, w/ tenderness limited ROM on active wrist extension no active drainage - Neurological Exam Neurological Exam: Alert, Awake, Oriented x3 - Psychiatric Exam Psychiatric exam: Normal Affect - Skin Skin Exam: Intact, Warm Assessment and Plan - Assessment and Plan (Free Text) Assessment: 52M w/ Right hand cellulitis 2/2 cat bite Plan: - betadine soaks BID - warm compresses q2 - Abx per ID - medical management per primary team - no acute surgical intervention indicated at this time - discussed w/ Dr. Garcia surgical attending PGY1
[2017-12-22 08:45] LABS: ALB/GLOB RATIO 0.8 (1.0-2.1); ALBUMIN 3.2 g/dL (3.5-5.0); ALT/SGPT 12 U/L (21-72); AST/SGOT 16 U/L (17-59); BLOOD UREA NITROGEN 10 mg/dL (9-20); CALCIUM 9.3 mg/dl (8.6-10.4); GFR AFRICAN-AMERICAN > 60; GFR NON-AFRICAN AMERICAN > 60
--- NOTE | 2017-12-22 15:23 | CP.PCM.PN ---
Subjective - Date & Time of Evaluation Date of Evaluation: 12/22/17 Time of Evaluation: 08:00 - Subjective Subjective: events noted iv rx in progress wound care in progress Objective - Vital Signs/Intake and Output Vital Signs (last 24 hours): Temp Pulse Resp BP Pulse Ox 97.6 F 82 20 113/75 99 12/22/17 07:54 12/22/17 07:54 12/22/17 07:54 12/22/17 07:54 12/22/17 07:54 Intake and Output: 12/22/17 12/22/17 06:59 18:59 Intake Total 1750 1280 Balance 1750 1280 - Medications Medications: Current Medications Acetaminophen (Tylenol 325mg Tab) 650 mg PO Q6H PRN PRN Reason: Fever >100.4 F Dextrose (Dextrose 50% Inj) 0 ml IV STAT PRN; Protocol PRN Reason: Hypoglycemia Protocol Dextrose (Glutose 15) 0 gm PO ONCE PRN; Protocol PRN Reason: Hypoglycemia Protocol Famotidine (Pepcid) 20 mg PO BID [facility] Last Admin: 12/22/17 10:09 Dose: 20 mg Glucagon (Glucagen Diagnostic Kit) 0 mg IM STAT PRN; Protocol PRN Reason: Hypoglycemia Protocol Heparin Sodium (Porcine) (Heparin) 5,000 units SC Q8 [facility] Last Admin: 12/22/17 14:14 Dose: 5,000 units Sodium Chloride (Sodium Chloride 0.9%) 1,000 mls @ 100 mls/hr IV .Q10H [facility] Last Admin: 12/22/17 10:09 Dose: Not Given Dextrose (Dextrose 5% In Water 1000 Ml) 1,000 mls @ 0 mls/hr IV .Q0M PRN; Protocol; Per Protocol PRN Reason: Hypoglycemia Protocol Meropenem 500 mg/ Sodium (Chloride) 100 mls @ 100 mls/hr IVPB Q8 [facility] PRN Reason: Protocol Last Admin: 12/22/17 14:14 Dose: 100 mls/hr Ibuprofen (Motrin Tab) 600 mg PO Q6 PRN PRN Reason: Pain, Mild (1-3) Insulin Human Regular (Novolin R) 0 unit SC ACHS [facility] PRN Reason: Protocol Last Admin: 12/22/17 12:07 Dose: Not Given Pneumococcal Polyvalent Vaccine (Pneumovax 23 Vaccine) 0.5 ml IM .ONCE ONE Stop: 12/23/17 10:01 Tramadol HCl (Ultram) 50 mg PO TID PRN PRN Reason: Pain, moderate (4-7) - Labs Labs: 12/20/17 17:06 12/22/17 08:03 APTT 37 SECONDS (21-34) H 12/20/17 17:06 - Constitutional Appears: Non-toxic, Chronically Ill - Head Exam Head Exam: NORMOCEPHALIC - Eye Exam Eye Exam: PERRL - ENT Exam ENT Exam: Mucous Membranes Dry - Neck Exam Neck Exam: absent: Lymphadenopathy - Respiratory Exam Respiratory Exam: Decreased Breath Sounds - Cardiovascular Exam Cardiovascular Exam: REGULAR RHYTHM - GI/Abdominal Exam GI & Abdominal Exam: Distended, Soft Assessment and Plan (1) Pasteurella cellulitis due to cat bite Status: Acute (2) Pasteurella cellulitis due to cat bite Status: Acute (3) Diabetes mellitus Status: Chronic - Assessment and Plan (Free Text) Assessment: cont iv rx and wound care will need 6 weeks rx for OM
[2017-12-23] MEDS: Meropenem 500 MG in Sodium Chloride 0.9% 100 ML IVPB SCH ×3 (05:25→21:51)
--- NOTE | 2017-12-23 06:04 | CP.PCM.PN ---
Subjective - Date & Time of Evaluation Date of Evaluation: 12/23/17 Time of Evaluation: 06:03 - Subjective Subjective: Progress note for Dr. Damon Patient seen and examined at bedside. Patient is tolerating pain well. Patient has no complaints at this time. Patient denies fever, chills, nausea, vomiting. No acute events overnight Objective - Vital Signs/Intake and Output Vital Signs (last 24 hours): Temp Pulse Resp BP Pulse Ox 98.3 F 88 20 133/81 98 12/23/17 00:00 12/23/17 00:00 12/23/17 00:00 12/23/17 00:00 12/23/17 00:00 Intake and Output: 12/22/17 12/23/17 18:59 06:59 Intake Total 1280 700 Balance 1280 700 - Medications Medications: Current Medications Acetaminophen (Tylenol 325mg Tab) 650 mg PO Q6H PRN PRN Reason: Fever >100.4 F Dextrose (Dextrose 50% Inj) 0 ml IV STAT PRN; Protocol PRN Reason: Hypoglycemia Protocol Dextrose (Glutose 15) 0 gm PO ONCE PRN; Protocol PRN Reason: Hypoglycemia Protocol Famotidine (Pepcid) 20 mg PO BID [facility] Last Admin: 12/22/17 17:43 Dose: 20 mg Glucagon (Glucagen Diagnostic Kit) 0 mg IM STAT PRN; Protocol PRN Reason: Hypoglycemia Protocol Heparin Sodium (Porcine) (Heparin) 5,000 units SC Q8 [facility] Last Admin: 12/23/17 05:25 Dose: 5,000 units Sodium Chloride (Sodium Chloride 0.9%) 1,000 mls @ 100 mls/hr IV .Q10H [facility] Last Admin: 12/22/17 18:12 Dose: 100 mls/hr Dextrose (Dextrose 5% In Water 1000 Ml) 1,000 mls @ 0 mls/hr IV .Q0M PRN; Protocol; Per Protocol PRN Reason: Hypoglycemia Protocol Meropenem 500 mg/ Sodium (Chloride) 100 mls @ 100 mls/hr IVPB Q8 [facility] PRN Reason: Protocol Last Admin: 12/23/17 05:25 Dose: 100 mls/hr Ibuprofen (Motrin Tab) 600 mg PO Q6 PRN PRN Reason: Pain, Mild (1-3) Insulin Human Regular (Novolin R) 0 unit SC ACHS [facility] PRN Reason: Protocol Last Admin: 12/22/17 21:43 Dose: Not Given Pneumococcal Polyvalent Vaccine (Pneumovax 23 Vaccine) 0.5 ml IM .ONCE ONE Stop: 12/23/17 10:01 Tramadol HCl (Ultram) 50 mg PO TID PRN PRN Reason: Pain, moderate (4-7) - Labs Labs: 12/20/17 17:06 12/22/17 08:03 APTT 37 SECONDS (21-34) H 12/20/17 17:06 - Additional Findings Additional findings: - Constitutional Appears: No Acute Distress - Head Exam Head Exam: ATRAUMATIC, NORMAL INSPECTION - Eye Exam Eye Exam: EOMI, Normal appearance - ENT Exam ENT Exam: Mucous Membranes Moist - Respiratory Exam Respiratory Exam: Clear to Ausculation Bilateral, NORMAL BREATHING PATTERN - Cardiovascular Exam Cardiovascular Exam: REGULAR RHYTHM, +S1, +S2 - GI/Abdominal Exam GI & Abdominal Exam: Soft, Normal Bowel Sounds. absent: Tenderness - Extremities Exam Additional comments: right hand with opening on right thenar eminence. cutter hand is erythematous, edematous. - Neurological Exam Neurological Exam: Alert, Awake, Oriented x3 - Psychiatric Exam Psychiatric exam: Normal Affect, Normal Mood Assessment and Plan - Assessment and Plan (Free Text) Assessment: 1.) stray Cat bite s/p I&D of hand abscess on prior admissiom - afebrile - Hand x-ray (12/20/17): Soft tissue swelling without acute articular or osseous abnormality. - Upper extremity CT (12/20/17): Findings compatible with osteomyelitis of first proximal phalanx, cellulitis and soft tissue abscesses. - Wound culture from previous admission (11/30/17): positive for Pasteurella multocida with sensitivity to meropenem - f/u Blood culture Surgery Consult: Dr. Garcia - As per surgical team - no surgical intervention needed at this time; continue IV antibiotics, continue warm compress ID Consult: Dr. Marquez - Spoke with Dr. Marquez 12/21/17 and he stated to continue the Merrem - Medications * Merrem 500mg IVPB Q8H (started 12/20/17) * Tramadol 50mg po tid prn * Motrin 600mg po q6 prn * Acetaminophen 650mg po q6 prn * NS @100cc/hr 2.) History of Diabetes - hA1c (12/01/17): 10.0 - Lipid Panel (12/01/17): Total cholesterol 116, LDL 64, HDL 21, Triglycerides 96 - Accuchecks - ISS - Hypoglycemia Protocol 3.) Prophylaxis - Pepcid 20mg PO bid - SCDs when in bed. - heparin sc Case discussed with Dr. Marisol Dye, DO PGY1
[2017-12-23] MEDS: Sodium Chloride 0.9% 1,000 ML IV SCH ×4 (07:00→17:53)
[2017-12-23] MEDS: (Novolin R) Insulin Human Regular 100 units/ml vial SC SCH ×4 (08:02→21:52)
[2017-12-23 08:47] LABS: ALB/GLOB RATIO 0.9 (1.0-2.1); ALBUMIN 3.5 g/dL (3.5-5.0); ALT/SGPT < 6 U/L (21-72); AST/SGOT 24 U/L (17-59); BLOOD UREA NITROGEN 9 mg/dL (9-20); CALCIUM 9.3 mg/dl (8.6-10.4); GFR AFRICAN-AMERICAN > 60; GFR NON-AFRICAN AMERICAN > 60
[2017-12-23] MEDS ORDERED: Pneumococcal 23-Valent Vaccine IM ONE (10:00)
[2017-12-24] MEDS: Sodium Chloride 0.9% 1,000 ML IV SCH ×3 (04:40→12:27)
[2017-12-24] MEDS: Meropenem 500 MG in Sodium Chloride 0.9% 100 ML IVPB SCH (05:05)
[2017-12-24] MEDS: (Novolin R) Insulin Human Regular 100 units/ml vial SC SCH ×3 (07:52→16:29)
[2017-12-24 08:14] LABS: ALB/GLOB RATIO 0.8 (1.0-2.1); ALBUMIN 3.3 g/dL (3.5-5.0); ALT/SGPT 9 U/L (21-72); AST/SGOT 16 U/L (17-59); BLOOD UREA NITROGEN 9 mg/dL (9-20); CALCIUM 9.4 mg/dl (8.6-10.4); GFR AFRICAN-AMERICAN > 60; GFR NON-AFRICAN AMERICAN > 60
--- NOTE | 2017-12-24 11:42 | RAD ---
HISTORY: verify left PICC COMPARISON: Chest radiograph dated 12/01/2017. FINDINGS: LUNGS: Lingula atelectasis/scarring versus infiltrate appear similar. PLEURA: No significant pleural effusion identified, no pneumothorax apparent. CARDIOVASCULAR: Normal. OSSEOUS STRUCTURES: Unchanged. VISUALIZED UPPER ABDOMEN: Normal. OTHER FINDINGS: New left upper extremity PICC with catheter tip at the cavoatrial junction. IMPRESSION: Left upper extremity PICC in satisfactory position. Similar appearance of lingular atelectasis/scarring versus infiltrate.
--- NOTE | 2017-12-24 13:19 | CP.PCM.PN ---
Subjective - Date & Time of Evaluation Date of Evaluation: 12/24/17 Time of Evaluation: 08:00 - Subjective Subjective: s/p cat bite injury wit OM right hand case reported to IC on IV Merrem need 6 weeks rx Objective - Vital Signs/Intake and Output Vital Signs (last 24 hours): Temp Pulse Resp BP Pulse Ox 97.8 F 76 20 136/87 97 12/24/17 07:34 12/24/17 07:34 12/24/17 07:34 12/24/17 07:34 12/24/17 07:34 Intake and Output: 12/24/17 12/24/17 06:59 18:59 Intake Total 2260 Output Total 250 Balance 2009 - Medications Medications: Current Medications Acetaminophen (Tylenol 325mg Tab) 650 mg PO Q6H PRN PRN Reason: Fever >100.4 F Dextrose (Dextrose 50% Inj) 0 ml IV STAT PRN; Protocol PRN Reason: Hypoglycemia Protocol Dextrose (Glutose 15) 0 gm PO ONCE PRN; Protocol PRN Reason: Hypoglycemia Protocol Famotidine (Pepcid) 20 mg PO BID [facility] Last Admin: 12/24/17 10:16 Dose: 20 mg Glucagon (Glucagen Diagnostic Kit) 0 mg IM STAT PRN; Protocol PRN Reason: Hypoglycemia Protocol Heparin Sodium (Porcine) (Heparin) 5,000 units SC Q8 [facility] Last Admin: 12/24/17 05:48 Dose: 5,000 units Sodium Chloride (Sodium Chloride 0.9%) 1,000 mls @ 100 mls/hr IV .Q10H [facility] Last Admin: 12/24/17 12:27 Dose: Not Given Dextrose (Dextrose 5% In Water 1000 Ml) 1,000 mls @ 0 mls/hr IV .Q0M PRN; Protocol; Per Protocol PRN Reason: Hypoglycemia Protocol Ertapenem (Invanz) 1 gm in 50 mls @ 100 mls/hr IVPB DAILY [facility] PRN Reason: Protocol Ibuprofen (Motrin Tab) 600 mg PO Q6 PRN PRN Reason: Pain, Mild (1-3) Insulin Human Regular (Novolin R) 0 unit SC ACHS [facility] PRN Reason: Protocol Last Admin: 12/24/17 11:58 Dose: Not Given Saccharomyces Boulardii (Florastor) 250 mg PO BID [facility] Tramadol HCl (Ultram) 50 mg PO TID PRN PRN Reason: Pain, moderate (4-7) - Labs Labs: 12/20/17 17:06 12/24/17 07:43 APTT 37 SECONDS (21-34) H 12/20/17 17:06 Assessment and Plan (1) Pasteurella cellulitis due to cat bite Status: Acute (2) Pasteurella cellulitis due to cat bite Status: Acute (3) Diabetes mellitus Status: Chronic
--- NOTE | 2017-12-24 14:32 | CP.PCM.DIS ---
Provider - Provider Date of Admission: 12/20/17 17:51 Attending physician: Michael Damon Jr, MD Time Spent in preparation of Discharge (in minutes): 40 Hospital Course - Lab Results Lab Results: Micro Results 12/20/17 18:30 Blood Blood Culture - Preliminary NO GROWTH AFTER 3 DAYS 12/20/17 18:30 Blood Blood Culture - Preliminary NO GROWTH AFTER 3 DAYS Most Recent Lab Values WBC 8.0 K/uL (4.8-10.8) 12/20/17 17:06 RBC 5.13 Mil/uL (4.40-5.90) 12/20/17 17:06 Hgb 14.4 g/dL (12.0-18.0) D 12/20/17 17:06 Hct 42.4 % (35.0-51.0) 12/20/17 17:06 MCV 82.6 fL (80.0-94.0) 12/20/17 17:06 MCH 28.0 pg (27.0-31.0) 12/20/17 17:06 MCHC 33.9 g/dL (33.0-37.0) 12/20/17 17:06 RDW 14.2 % (11.5-14.5) 12/20/17 17:06 Plt Count 274 K/uL (130-400) D 12/20/17 17:06 MPV 9.5 fL (7.2-11.7) 12/20/17 17:06 Neut % (Auto) 71.3 % (50.0-75.0) 12/20/17 17:06 Lymph % (Auto) 13.4 % (20.0-40.0) L 12/20/17 17:06 Lyon % (Auto) 9.9 % (0.0-10.0) 12/20/17 17:06 Eos % (Auto) 2.8 % (0.0-4.0) 12/20/17 17:06 Baso % (Auto) 2.6 % (0.0-2.0) H 12/20/17 17:06 Neut # (Auto) 5.7 K/uL (1.8-7.0) 12/20/17 17:06 Lymph # (Auto) 1.1 K/uL (1.0-4.3) 12/20/17 17:06 Lyon # (Auto) 0.8 K/uL (0.0-0.8) 12/20/17 17:06 Eos # (Auto) 0.2 K/uL (0.0-0.7) 12/20/17 17:06 Baso # (Auto) 0.2 K/uL (0.0-0.2) 12/20/17 17:06 APTT 37 SECONDS (21-34) H 12/20/17 17:06 Sodium 141 mmol/L (132-148) 12/24/17 07:43 Potassium 4.1 mmol/L (3.6-5.2) 12/24/17 07:43 Chloride 105 mmol/L (98-107) 12/24/17 07:43 Carbon Dioxide 27 mmol/L (22-30) 12/24/17 07:43 Anion Gap 13 (10-20) 12/24/17 07:43 BUN 9 mg/dL (9-20) 12/24/17 07:43 Creatinine 0.9 mg/dL (0.8-1.5) 12/24/17 07:43 Est GFR ( Amer) > 60 12/24/17 07:43 Est GFR (Non-Af Amer) > 60 12/24/17 07:43 POC Glucose (mg/dL) 126 mg/dL (65-110) H 12/24/17 11:36 Random Glucose 97 mg/dL (75-110) 12/24/17 07:43 Calcium 9.4 mg/dl (8.6-10.4) 12/24/17 07:43 Phosphorus 3.6 mg/dL (2.5-4.5) 12/24/17 07:43 Magnesium 2.0 mg/dL (1.6-2.3) 12/24/17 07:43 Total Bilirubin 1.1 mg/dL (0.2-1.3) 12/24/17 07:43 AST 16 U/L (17-59) L D 12/24/17 07:43 ALT 9 U/L (21-72) L D 12/24/17 07:43 Alkaline Phosphatase 71 U/L (38-126) 12/24/17 07:43 Troponin I < 0.0120 ng/mL (0.00-0.120) 12/20/17 17:06 Total Protein 7.5 g/dL (6.3-8.3) 12/24/17 07:43 Albumin 3.3 g/dL (3.5-5.0) L 12/24/17 07:43 Globulin 4.2 gm/dL (2.2-3.9) H 12/24/17 07:43 Albumin/Globulin Ratio 0.8 (1.0-2.1) L 12/24/17 07:43 - Hospital Course Hospital Course: HPI 52M presents with worsening of swelling and pain to right hand after cat bite 2 weeks from 11/30. Patient had I&D by Dr. Garcia with pulse irrigation, and was seen by ID Dr. Marquez during last admission. Patient had a PICC placed and received IV antibiotics during his stay. Patient admits to right hand pain and drainage coming from his right hand wound. Patient states his hands are warm and swollen. Abscess was positive for Pasteurella multocida with sensitivities to Tigecycline, cefazolin, and meropenem. Patient signed out AMA last time due to needing to feed his cat. Patient denies fever, chills, nausea, vomiting, vision changes, seizures, rash, cough. PMH: DM2, takes no medications PSH: denies FH: Unremarkable SH: Denies smoking, drinking ETOH, illicit drugs Allergies: NKDA Hospital Course: During this admission, this patient was diagnosed osteomyelitis s/p a Cat bite. Patient had previously had I&D of the hand abscess on prior admission on . During this admission, surgery Dr. Garcia and infectious disease Dr. Marquez were consulted. Patient was treated with Merrem 500mg IVPB Q8H (started 12/20/17) , Tramadol 50mg PO TID PRN, Motrin 600mg PO Q6H PRN, Acetaminophen 650mg PO Q6 PRN, and NS@100cc/hr. Per ID Dr. Marquez, patient had PICC line placed and will continue on antibiotics with home infusions for [address] Garcia , no surgical intervention was needed during this admission. For history of diabetes, patient was monitored with Accuchecks and treated according to insulin sliding scale and hypoglycemia protocols, otherwise asymptomatic and stable. Imaging: - Hand x-ray (12/20/17): Soft tissue swelling without acute articular or osseous abnormaity. - Upper extremity CT (12/20/17): Findings compatible with osteomyelitis of first proximal phalanx, cellulitis and soft tissue abscesses. Culture: - Wound culture from previous admission (11/30/17): positive for Pasteurella multocida with sensitivity to meropenem Patient stable to go home with daily antibiotic. Nurse will visit patient daily to receive Invanz 1g daily for 6 weeks. Weekly cbc and cmp will be done. Patient will follow up with infectious disease Dr. Marquez. Patient to follow up with PMD in 1-2 weeks. Please follow up in [facility] for ongoing outpatient care. Patient to return to the emergency room if symptoms return or worsen. This is a summary of the patient's hospital course, please refer to full EMR for further details. Discharge Exam - Head Exam Head Exam: NORMOCEPHALIC - Eye Exam Eye Exam: EOMI, Normal appearance - ENT Exam ENT Exam: Mucous Membranes Moist - Respiratory Exam Respiratory Exam: Clear to PA & Lateral, NORMAL BREATHING PATTERN - Cardiovascular Exam Cardiovascular Exam: REGULAR RHYTHM, +S1, +S2 - GI/Abdominal Exam GI & Abdominal Exam: Normal Bowel Sounds, Soft. absent: Tenderness - Extremities Exam Additional comments: right hand with opening on right thenar eminence. clock and watch hands dipper is erythematous, edematous. - Neurological Exam Neurological exam: Alert, Oriented x3 - Psychiatric Exam Psychiatric exam: Normal Affect, Normal Mood Discharge Plan - Discharge Medications Prescriptions: Ertapenem [Invanz] 1 gm IV DAILY 42 Days pds - Follow Up Plan Condition: STABLE Disposition: HOME/ ROUTINE Instructions: Abscess Incision and Drainage (DC), Cellulitis (DC) Referrals: Michael Damon Jr., MD [Medical Doctor] -
[2017-12-24 15:49] VITALS: BP 121/83; PULSE 82; TEMP 97.5; O2SAT 100
[2017-12-24] MEDS ORDERED: Ertapenem 1gm in NS 50ml 1 GM/50 ML BAG IVPB ONE (16:00)
[2017-12-24] MEDS ORDERED: Saccharomyces Boulardi 250 mg Cap PO SCH (18:00)
== END 2017-12-24 18:10 | disposition home or self-care (01) | DRG 563 ==
LOC: C.ER 16:16 → C.9E 17:51 → C.3T 19:19
PROVIDERS: ADMIT Internal Medicine; ATTEND Internal Medicine
DX: L02.511 Cutaneous abscess of right hand (principal); M86.141 Other acute osteomyelitis, right hand; E11.69 Type 2 diabetes mellitus with other specified complication; A28.0 Pasteurellosis; B96.89 Other specified bacterial agents as the cause of diseases classified elsewhere; S61.451D Open bite of right hand, subsequent encounter; W55.01XD Bitten by cat, subsequent encounter

== ENCOUNTER 2018-02-18 10:22 | Emergency (ER) | payer MEDICAID ==
[2018-02-18 10:57] VITALS: BP 127/83; PULSE 103; RESP 20; TEMP 98.2; O2SAT 98
[2018-02-18 10:58] VITALS: BMI 26.6
--- NOTE | 2018-02-18 10:58 | C.PDOC ---
History Of Present Illness 53-YEAR-OLD MALE, REFERRED FOR PICC LINE REMOVAL FROM CLINIC. PLACED 12/03 S/P OSTEOMYELITIS. PS ASYMPT, WAS TOLD BY CLINIC THEY DO NOT REMOVE PICC LINES. EXAM NAD EXT +LUE PICC IN PLACE REMAINDER NEG Chief Complaint (Nursing): Medical Clearance History Per: Patient History/Exam Limitations: no limitations Onset/Duration Of Symptoms: Days Severity: Moderate Past Medical History Reviewed: Historical Data, Nursing Documentation, Vital Signs Vital Signs: Last Vital Signs Temp 98.2 F 02/18/18 10:56 Pulse 103 H 02/18/18 10:56 Resp 20 02/18/18 10:56 BP 127/83 02/18/18 10:56 Pulse Ox 98 02/18/18 11:41 - Medical History PMH: Diabetes - [facility] Procedures DRAINAGE OF RIGHT HAND MUSCLE, OPEN APPROACH, DIAGNOSTIC (11/30/17) EXCISION OF RIGHT HAND SKIN, EXTERNAL APPROACH (11/30/17) INSERTION OF INFUSION DEV INTO SUP VENA CAVA, PERC APPROACH (12/20/17) Family History: States: No Known Family Hx - Social History Hx Alcohol Use: No Hx Substance Use: No - Immunization History Hx Tetanus Toxoid Vaccination: No Hx Influenza Vaccination: No Hx Pneumococcal Vaccination: No Review Of Systems Constitutional: Negative for: Fever, Chills Cardiovascular: Negative for: Chest Pain, Palpitations Respiratory: Negative for: Shortness of Breath Gastrointestinal: Negative for: Vomiting, Abdominal Pain Skin: Negative for: Rash Neurological: Negative for: Weakness, Numbness, Headache, Dizziness Physical Exam - Physical Exam Appears: Non-toxic, No Acute Distress Skin: Normal Color, Warm, Dry, No Rash Head: Atraumatic Eye(s): bilateral: Normal Inspection Nose: Normal Oral Mucosa: Moist Lips: Normal Appearing Neck: Normal ROM Chest: Symmetrical Respiratory: No Accessory Muscle Use (NARD) Extremity: Normal ROM, No Deformity, No Swelling, Other ( +LUE PICC IN PLACE) Neurological/Psych: Oriented x3, Normal Speech ED Course And Treatment O2 Sat by Pulse Oximetry: 98 (RA) Pulse Ox Interpretation: Normal Progress - Re-Evaluation Re-evaluation Note: 02/18/18 11:04 D/W PICC RN, WILL REMOVE LINE - Data Reviewed Data Reviewed: Old records Disposition Counseled Patient/Family Regarding: Diagnosis, Need For Followup - Disposition Referrals: [facility] [Outside] [facility] [Outside] Disposition: HOME/ ROUTINE Disposition Time: 11:41 Condition: IMPROVED Instructions: Wound Care (DC) Forms: [facility] (Turkish) - Clinical Impression Clinical Impression: PIC line (peripherally inserted central catheter) removal - Scribe Statement The provider has reviewed the documentation as recorded by the Scribe (Radha Guillory) All medical record entries made by the Scribe were at my direction and personally dictated by me. I have reviewed the chart and agree that the record accurately reflects my personal performance of the history, physical exam, medical decision making, and the department course for this patient. I have also personally directed, reviewed, and agree with the discharge instructions and disposition.
== END 2018-02-18 12:17 | disposition home or self-care (01) ==
LOC: C.ER 10:22
DX: Z45.2 Encounter for adjustment and management of vascular access device (principal)